=== PATIENT | female | born 1975 | race Caucasian/White ===

== ENCOUNTER → 2017-10-19 07:27 | Outpatient (CLI) | payer BC, SELFPAY ==
--- NOTE | 2017-10-19 06:58 | BI_ITS ---
MAMMOGRAPHY - BILATERAL SCREENING REASON FOR EXAM: Female, 42 years old. Routine annual screening examination. PERTINENT HISTORY: Non-contributory. Occasional right axillary discomfort. TECHNIQUE: Digital bilateral breast justin (3D mammographic acquisition) in the CC and MLO projections. 2-D mediolateral oblique (MLO) and craniocaudad (CC) views of both breasts were obtained. CAD: Full Field Digital Mammography with Computer Added Detection was performed. COMPARISON: Comparison is made with prior artery examination and October 18, 2016. FINDINGS: Breast Composition: There are scattered areas of fibroglandular density. There are no dominant masses or suspicious calcifications. Stable bilateral benign-appearing axillary lymph nodes. No other significant abnormalities are identified. There has been no significant change since the prior study. BI/SCREENING MAMM (CAD), BILAT IMPRESSION: Stable bilateral screening mammogram. Yearly follow-up mammogram recommended. (A) ASSESSMENT CATEGORY: BIRADS Category 2: Benign. A letter regarding these results will be sent to the patient by the facility within 30 days. Approximately 10% of breast cancers are not detected by mammography. A normal mammogram should not delay biopsy of a clinically suspicious abnormality. [id number] Electronically Signed: Barrett Calvert MD at 8:26 EDT Tel [phone], Service support ,
== END ==
PROVIDERS: Family Provider Family Medicine; PCP Family Medicine; Visit Provider Obstetrics & Gynecology
DX: Z12.31 Encounter for screening mammogram for malignant neoplasm of breast (principal)
CPT/HCPCS: 77063; 77067

== ENCOUNTER → 2017-10-27 18:22 | Outpatient (CLI) | payer BC, SELFPAY ==
[2017-11-09 10:56] LABS: HPV APTIMA, High Risk Negative (Negative)
== END ==
PROVIDERS: Visit Provider Obstetrics & Gynecology
DX: Z12.4 Encounter for screening for malignant neoplasm of cervix (principal)
CPT/HCPCS: 88175; G0145

== ENCOUNTER 2018-10-24 10:30 | Outpatient (RCR) | payer BC, SELFPAY ==
--- NOTE | 2018-09-27 12:26 | HP.PTEVAL ---
Patient's Visit Information MADIHA ORDOÑEZ is a 42 year old F referred to Physical Therapy by Milan Maynard MD with a diagnosis of LEFT ACL RECONSTRUCTION. Date of Evaluation: 09/27/18 Physical Therapist: Collin Dior, PT, Cert MDT, OCS - Visit Plan Frequency: 2x /Week Duration: 3 Months Plan: S/P ACL RECONSTRUCTION USING ALLOGRAFT DONE 09/07/18. PATIENT WBAT WITH DONJOY BRACE OPEN 0-120 KKEE. SEE BARNARD PROTOCAL FOR ACL RECONSTRUCTION. WEAN FROM CRUTCHES PROGRESSION PER PROTOCAL ROM,STRENGTH,PROPRIOCEPTION,NEUROCONTROL ,NMES/ESIM NEEDED - Subjective Findings: This 42 y/o female presents to physical therapy with left ACL reconstruction allograft. Patient tore ACL Jun 08 ,stepping in truck slipped left foot caused knee to twist with immediate pain. Patient seen end MD Tillman ,DR Maynard did MRI ACL ,grade 2 MCL srain. patient underwent s/p ACL repair 09/07/18 at [facility]. Patient was intially NWB LE for 2weeks then seen DR last week start PT and WBAT with crutches.Patient Donjoy knee brace unlocked with crutches .Patient has pain and edema knee with patient using at at home.Patient has limitation with all functional activies with steps one step at a time. Patient has difficulty sleeping. Patient able to take brace on at night. Denies parathesia /tingling. Patient ACL surgery impairs QOL and function. Home situation 4 steps. 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 SOCIAL: . HOBBIES: motorcycle - Pain Left Knee Pain Intensity (Out of 10): 5 Pain Intensity Range: 10 - Objective POSTURE: mild foward posture. GAIT: ambulates with crutches with WBAT knee brace open. EDEMA: 45 cm joint line. AROM: 5-85 supine knee flexion. NEURO: intact. MMT: NT QUAD/HAMS,HIP 4-/5. PROPRIOCEPTION: poor. FLEXABLITY:hams min tight. QUAD SET: GOOD. PATELLA MOBLITY : mild tight - Goals Goal 1:: Indedependant with ACL barnard protocal progression Goal Time Frame: 12-16 Weeks Goal 2:: Patient to normalize gait pattern Goal Time Frame: 12-16 Weeks Goal 3:: Patient improve AROM supine knee flexion 0-130 degrees to improve function Goal Time Frame: 12-16 Weeks Goal 4:: Patient increase strength quads/hams/hip 08/31 to improve function. Goal Time Frame: 12-16 Weeks Goal 5:: Patient to improve prorioception /neuromuscular control to good right=to left Goal Time Frame: 12-16 Weeks Goal 6:: Patient to improve LFES score to b7 20-30 ponits to improve QOL. Goal Time Frame: 12-16 Weeks - Rehabilitation Potential Physical Therapy Diagnosis: Patient undwent s/p ACL reconstruction 09/07/18 with deficits with ROM ,strength,proprioception ,gait and balance thus benifit from skilled PT. Rehabilitation Potential: Good - Anticipated Interventions Patient/Client Instruction: Educate patient on: Condition, Plan of Care For the Purpose of:: To decrease pain, To increase ROM, To improve muscle performance and motor function, To improve ability to perform ADL's, To increase tolerance to activity/condition/position, To improve performance and independence with ADL's, To improve gait and locomotor functions, To increase flexibility/ROM, To improve endurance, To improve balance, To improve safety with gait, To improve ability to perform tasks related to life management Therapeutic Exercise to Include: Strength training, Endurance training, Balance training, Flexibilty training, Gait and locomotor training, Passive ROM, Active ROM Comment: PER NEFTALY PUGA For the Purpose of:: To decrease pain, To decrease swelling/inflammation, To increase ROM, To improve muscle performance and motor function, To improve ability to perform ADL's, To increase tolerance to activity/condition/position, To improve ability of physical actions for home/community/work/leisure, To improve gait and locomotor functions, To increase flexibility/ROM, To improve endurance, To improve balance, To improve safety with gait, To improve ability to perform tasks related to life management Functional electric stimulation: Yes TENS: Yes IF ES: Yes Cryotherapy (ice pack, ice massage): Yes Vasopneumatic device: Yes For the Purpose of:: To decrease pain, To decrease swelling/inflammation, To increase ROM, To improve nutrient delivery to tissue, To increase oxygenation perfusion, To decrease soft tissue restriction, To increase flexibility/ROM Thank you for the opportunity to evaluate your patient. For Medicare and Medicare HMO plans, please review the plan of care and approve it. It will need to be FAXED BACK to us at [phone] for Medicare purposes. For Medicare only, by signing this I certify the plan of care. Please let me know if there are questions or concerns regarding this plan of care. Physician Signature: Date:
--- NOTE | 2018-12-25 07:16 | HP.PTDCNRP_ITS ---
HP - Discharge Summary (1) - Patient Information MADIHA ORDOÑEZ was seen in my office for initial evaluation on 09/27/18. The following Plan of Care was established for this patient: Initial Frequency: 2x /Week Initial Duration: 3 Months - Anticipated Interventions Patient/Client Instruction: Educate patient on: Condition, Plan of Care For the Purpose of:: To decrease pain, To increase ROM, To improve muscle per formance and motor function, To improve ability to perform ADL's, To increase tolerance to activity/condition/position, To improve performance and independence with ADL's, To improve gait and locomotor functions, To increase flexibility/ROM, To improve endurance, To improve balance, To improve safety with gait, To improve ability to perform tasks related to life management Therapeutic Exercise to Include: Strength training, Endurance training, Balance training, Flexibilty training, Gait and locomotor training, Passive ROM, Active ROM For the Purpose of:: To decrease pain, To decrease swelling/inflammation, To increase ROM, To improve muscle performance and motor function, To improve ability to perform ADL's, To increase tolerance to activity/condition/position, To improve ability of physical actions for home/community/work/leisure, To improve gait and locomotor functions, To increase flexibility/ROM, To improve endurance, To improve balance, To improve safety with gait, To improve ability to perform tasks related to life management Functional electric stimulation: Yes TENS: Yes IF ES: Yes Cryotherapy (ice pack, ice massage): Yes Vasopneumatic device: Yes For the Purpose of:: To decrease pain, To decrease swelling/inflammation, To increase ROM, To improve nutrient delivery to tissue, To increase oxygenation perfusion, To decrease soft tissue restriction, To increase flexibility/ROM This patient was last seen in our office 10/24/18. Pertinent comments regarding their Physical therapy will appear below: Patient seen for PT for ACL with progression of protocal . Patient doing well with ROM and strength. Patient decided to continue PT and [facility],thus is d/c fom our dept. Thanks for referral. At this point I will be discontinuing this patient from physical therapy. I would be happy to see this patient again in the future if found appropriate by the physician. Thank you! Collin Dior, PT, Cert MDT, OCS
== END 2018-10-24 19:00 | disposition home or self-care (01) ==
LOC: PT 10:30
PROVIDERS: Family Provider Family Medicine; PCP Family Medicine; Referring Provider Orthopaedic Surgery; Visit Provider Orthopaedic Surgery
DX: S83.512D Sprain of anterior cruciate ligament of left knee, subsequent encounter (principal)
CPT/HCPCS: 97110; 97161

== ENCOUNTER → 2018-11-01 | Outpatient (CLI) | payer BC, SELFPAY ==
[2017-10-27 14:27] VITALS: BMI 41.8
--- NOTE | 2018-11-01 08:06 | BI_ITS ---
MAMMOGRAPHY - BILATERAL SCREENING REASON FOR EXAM: Female, 43 years old. Routine annual screening examination. PERTINENT HISTORY: Non-contributory. TECHNIQUE: Digital bilateral breast mary (3D mammographic acquisition) in the CC and MLO projections. 2-D mediolateral oblique (MLO) and craniocaudad (CC) views of both breasts were obtained. CAD: Full Field Digital Mammography with Computer Added Detection was performed. COMPARISON: Comparison is made with prior study dated October 19, 2017 and October 18, 2016. FINDINGS: Breast Composition: There are scattered areas of fibroglandular density. There are no dominant masses or suspicious calcifications. Stable benign-appearing bilateral axillary lymph nodes. No other significant abnormalities are identified. There has been no significant change since the prior study. BI/SCREEN MAMM (CAD) W/MARY BILAT IMPRESSION: Stable bilateral screening mammogram. Yearly follow-up mammogram recommended. (A) ASSESSMENT CATEGORY: BIRADS Category 1: Negative. A letter regarding these results will be sent to the patient by the facility within 30 days. Approximately 10% of breast cancers are not detected by mammography. A normal mammogram should not delay biopsy of a clinically suspicious abnormality. [id number] Electronically Signed: Barrett Calvert, at 10:10 EDT , Service support ,
== END | disposition home or self-care (01) ==
LOC: OPBI 08:04
PROVIDERS: Family Provider Family Medicine; PCP Family Medicine; Referring Provider Obstetrics & Gynecology; Visit Provider Obstetrics & Gynecology
DX: Z12.31 Encounter for screening mammogram for malignant neoplasm of breast (principal)
CPT/HCPCS: 77063; 77067

== ENCOUNTER 2018-12-05 13:31 | Outpatient (RCR) | payer BC, SELFPAY ==
[2018-11-20 08:11] VITALS: BMI 41.8
== END 2018-12-26 23:59 ==
LOC: NS 13:31
PROVIDERS: Family Provider Family Medicine; PCP Family Medicine; Visit Provider Nurse Practitioner Women's Health
DX: E66.01 Morbid (severe) obesity due to excess calories (principal); Z68.41 Body mass index [BMI] 40.0-44.9, adult; Z71.3 Dietary counseling and surveillance
CPT/HCPCS: 97802

== ENCOUNTER → 2019-01-22 | Outpatient (CLI) | payer BC, SELFPAY ==
[2019-01-22 15:58] VITALS: BMI 41.8
== END | disposition home or self-care (01) ==
PROVIDERS: Family Provider Family Medicine; PCP Family Medicine; Referring Provider Nurse Practitioner Women's Health; Visit Provider Nurse Practitioner Women's Health
DX: R30.0 Dysuria (principal)
CPT/HCPCS: 87086; 87088

== ENCOUNTER 2019-01-24 09:09 | Day surgery (SDC) | payer BC, SELFPAY ==
[2018-11-20 08:11] VITALS: BMI 41.8
[2019-01-22 15:58] VITALS: BMI 41.8
--- NOTE | 2019-01-23 22:13 | PCM.HPOB.BLA ---
- Problem List (1) Body mass index (BMI) of 40.1 to 44.9 in adult Status: Acute Comment: nutrition consult, low carb diet, SW 236, adipex (2) Dysmenorrhea Status: Acute (3) Allergy-induced asthma Status: Chronic (4) Chronic pelvic pain in female Status: Chronic Comment: s/p ablation, not hormonal candidate, discussed and recommend TVH BS (5) Hypertension Status: Chronic Qualifiers: History and Physical Date of Admission: 01/24/19 Intake Vital Signs 01/14/19 Body Mass Index (BMI) 41.8 01/14/19 Height 5 ft 4 in 01/14/19 Weight: 221 lb 01/14/19 Body Mass Index (BMI) 37.9 01/14/19 Blood Pressure 136/86 H Intake Visit Reasons: pre op ERAS/WEIGHT CHECK FOR ADIPEX Chief Complaint: pre op, adipex check Electrical Installer Required: No Is patient in pain?: No Allergies Penicillins Allergy (Mild, Verified 01/14/19 10:42) unknown Medications albuterol sulfate HFA 90 mcg/actuation aerosol inhaler 2 puff INHALATION Q6H PRN 10/27/17 [History Confirmed 01/14/19] hydrochlorothiazide 12.5 mg tablet 12.5 mg PO QDAY 10/27/17 [History Confirmed 01/14/19] phentermine 37.5 mg tablet 37.5 mg PO QDAY #30 tab 01/14/19 [Rx Confirmed 01/14/19] Is last menstrual period known: No Post menopausal: No Patient : No : No [facility] Medical History Hypertension (Chronic) Allergy-induced asthma (Chronic) Abnormal uterine bleeding (Acute) Hip tendonitis (Acute) Surgical History History of endometrial ablation (Acute) S/P ACL repair (Acute) History of bunionectomy of both great toes (Resolved) S/P tubal ligation (Resolved) Family History Father Diabetes CVA (cerebral vascular accident) Hypertension Mother Lung cancer Grandfather Leukemia Grandmother Diabetes Social History (Updated 01/14/19 @ 11:17 by Bea Miramontes MD) Smoking Status: Former smoker alcohol intake: current substance use type: does not use caffeine: Yes frequency: 1-2 times per week seatbelt use: always do you feel safe at home: Yes additional social history: - [employer] for [employer] Patient is retired from [employer] HPI pre op ERAS/WEIGHT CHECK FOR ADIPEX: Details: MADIHA ORDOÑEZ is a 43 year old who presents for fu of weight loss and preop visit. she has had dysmenorrhea and pelvic pain. Female Reproductive History Menopausal Symptoms: No night sweats Pregancy History 1 Elective abortions Hx Para 1 Spontaneous abortions Hx # Term Pregnancies Ectopic pregnancies Hx # Pregnancies Multiple births # of living children Past Pregnancies Del. Date Name GA/Weeks Outcome Route Bth Weight Infant Gen Labor Lgth Anesthesia Del Locatn Provider FOB Unknown ROS Const Constitutional: Denies fatigue, night sweats, weight gain or weight loss ENT ENT: Reports system reviewed and no additional complaints, except as docu Cardio Card: Denies chest pain Resp Resp: Denies cough or dyspnea GI GI: Reports as per HPI; denies abdominal pain, constipation, nausea or vomiting : Denies nipple discharge, urinary frequency, urinary incontinence, urinary hesitancy, urinary urgency, vaginal discharge, vaginal dryness, vaginal odor or vaginal itching Musc Musc: Denies joint pain, back pain or muscle weakness Skin Skin/Breast: Denies hair loss, change in hair, dry skin, breast lump, breast pain, breast skin changes or nipple discharge Neuro Neuro: Reports system reviewed and no additional complaints, except as docu Psych Psych: Reports system reviewed and no additional complaints, except as docu Endo Endo: Denies cold intolerance, excessive sweating, heat intolerance or increased thirst Juanpablo/Lymph Hematologic/Lymphatic: Denies easy bleeding, Denies easy bruising, Denies enlarged lymph nodes Exam Const General: cooperative, healthy appearing, comfortable, no acute distress, well developed Orientation: alert HENSC Head: normal to inspection, normocephalic Ears: hearing grossly normal bilaterally, external ears normal Nose: external nose normal, nares normal Face and sinus: normal facial exam Neck Neck: normal visual inspection, no lymphadenopathy Thyroid: thyroid normal Chest Chest palpation & inspection: normal inspection of the chest Resp Effort & Inspection: normal respiratory effort Cardio Rate: regular rate GI Inspection: normal to inspection, non-distended Palpation: soft, no hepatosplenomegaly Musc Other: gross motor intact no deficits, full bilateral strength Skin General: no rashes or lesions noted Neuro General: alert, awake, moves all extremities, no focal motor deficits Motor: muscle tone normal throughout Extrem General: normal to inspection, no pedal edema Psych Appearance: grossly normal Mental Status: mental status grossly normal Affect: normal affect Speech and Movement: speech and movement normal Assessment & Plan Problems 1. Dysmenorrhea N94.6 2. Chronic pelvic pain in female R10.2; G89.29 s/p ablation, not hormonal candidate, discussed and recommend TVH BS 3. Body mass index (BMI) of 40.1 to 44.9 in adult Z68.41 nutrition consult, low carb diet, SW 236, adipex Plan discussed surgical risks including risks of anesthesia, infection, bleeding, injury to bowel, bladder or blood vessels, and patient wishes to proceed with surgery. Medications Refilled: phentermine (Adipex-P) 37.5 mg PO QDAY 30 tabs 0RF Coding Level of Care Code No Charge Diagnoses Dysmenorrhea N94.6 Chronic pelvic pain in female R10.2; G89.29 Body mass index (BMI) of 40.1 to 44.9 in adult Z68.41
[2019-01-24] VITALS (11 sets, daily range): BP systolic 106–163; BP diastolic 65–87; PULSE 82–103; RESP 16–18; TEMP 36.3–36.9; O2SAT 94–100; BMI 31.0; BMI 36.8
--- NOTE | 2019-01-24 | HYST_PTH ---
PATIENT: MADIHA ORDOÑEZ LOC: [facility] [place] U#:[id number] AGE/SX: 43/F ROOM: RE01/24/[address]: Dr. Bea Miramontes MD : 1975 BED: DIS: 01/25/2019 SPEC #: [id number] RECD: 01/24/19 14:09 STATUS: JUVENCIO JOVANA #: [id number] DENIA: 01/24/19 00:[address]: Bea Miramontes DEPT: SURGICAL PATHOLOGY RECD BY: Tyrel Atkins ENTERED: 01/24/19 14:09 SP TYPE: HYSTERECT OTHR DR: Dr. Trevor Govea III, MD Tissues: Uterus, NOS Procedures: Surgery Specimen Level V HEADER OPERATION: ERAS, hysterectomy, vaginal PRE-OP DIAGNOSIS: Dysmenorrhea, chronic pelvic TISSUE SUBMITTED: Uterus MICROSCOPIC DIAGNOSIS Uterus, hysterectomy: Cervix - mild chronic inflammation and focal squamous metaplasia. Endometrium - secretory endometrium. Myometrium - adenomyosis and leiomyoma. AM:daniela 01/25/19 MICROSCOPIC DESCRIPTION Slides are reviewed. GROSS DESCRIPTION Received in fixative is one container labeled with the patient's name and designated uterus. The specimen consists of a hysterectomy specimen consisting of uterus. The uterus with cervix weighs 80 gm and measures 10 x 5 x 4.5 cm. The serosal surface is greenwood glistening. A small subserosal nodule is noted. The ectocervical mucosa is unremarkable. The external os is oval in contour. The endocervical canal measures 3.5 cm in length and the endocervical mucosa is greenwood glistening and unremarkable. The endometrial cavity is slightly irregular and with focal area of fibrosis and contains chocolate brown hemorrhagic fluid and measures 4 cm in length and up to 1 cm in width. The uterine wall reveals 2 small cysts filled with chocolate brown material. The uterine wall measures up to 2.5 cm in thickness. Serial sections reveal a small subserosal nodule measuring 0.4 cm in greatest dimension. Vessel Manager sections are submitted in 7 cassettes as follows: 1 - anterior cervix, 2 - posterior cervix, 3 & 4 - anterior uterine wall, 5 & 6 - posterior uterine wall, 7 - more sections of posterior uterine wall and subserosal nodular mass. DIEGO:daniela 01/24/19 TC:1 CPT: 41156
[2019-01-24 09:32] LABS: Hematocrit 40.7 % (37-47); Hemoglobin 13.6 g/dL (12.0-15.0); Mean Corp Hgb Conc 33.4 g/dL (32-36); Mean Corpuscular Hgb 29.6 pg (27.0-32.0); Mean Corpuscular Volume 88.5 fL (81-99); Mean Platelet Vol. 10.7 fl (6.2-12.0); Platelet Count 197 K/mm3 (150-450); RBC Distribution Width CV 12.8 % (11.6-14.6); RBC Distribution Width SD 41.8 fl (35.1-43.9); White Blood Count 6.8 K/mm3 (4.4-11.0)
[2019-01-24 09:38] LABS: Internal QC Validated? YES +Cl - CLEAR BKGD; Pregnancy, Urine Negative Negative
[2019-01-24] MEDS: Scopolamine 1mg/72hr Patch 1 PATCH TRANSDERM. (09:44)
[2019-01-24] MEDS: Acetaminophen 500 MG Tablet 1000 MG PO ×3 (09:44→23:38)
[2019-01-24] MEDS: Celecoxib 200 MG Capsule 400 MG PO (09:46)
[2019-01-24] MEDS: Phenazopyridine 95 MG Tablet 190 MG PO (09:47)
[2019-01-24] MEDS: Lactated Ringers 1,000 ML 40 ML IV (09:48)
[2019-01-24] MEDS: dexAMETHasone 10 MG/ML Vial 8 MG IV (09:48)
[2019-01-24] MEDS: Gabapentin 600 MG Tablet PO (09:48)
[2019-01-24] MEDS: Enoxaparin 40 MG/0.4 ML Syringe SC (09:49)
[2019-01-24] MEDS: Magnesium Sulfate 4gm/100mL 4 GM/100 ML IV.SOLN. IV (09:49)
[2019-01-24 10:21] LABS: Bedside Glucose 157 mg/dL (70-110)
[2019-01-24] MEDS: Cefazolin 2 GM in 0.9% Normal Saline 100 ML IV (11:07)
[2019-01-24] MEDS: Lactated Ringers 1,000 ML 70 ML IV ×2 (12:30→23:38)
[2019-01-24] MEDS: Vasopressin 20 UNITS/ML Vial (12:40)
--- NOTE | 2019-01-24 12:53 | PCM.OPRPT ---
Problem List (1) Body mass index (BMI) of 40.1 to 44.9 in adult Status: Acute Comment: nutrition consult, low carb diet, SW 236, adipex (2) Dysmenorrhea Status: Acute (3) Allergy-induced asthma Status: Chronic (4) Chronic pelvic pain in female Status: Chronic Comment: s/p ablation, not hormonal candidate, discussed and recommend TVH BS (5) Hypertension Status: Chronic Qualifiers: Report of Operation Date of Procedure: 01/24/19 Pre-Operative Diagnosis: aub Post-Operative Diagnosis: same Surgery/Procedure Performed:: tvh Description of Surgical Findings:: Normal uterus tubes right simple ovarian cyst forming roll operator heavy duty: Chary Salazar Type of Anesthesia:: General Special Medications: ancef Specimen's removed: Uterus Drains: malik Estimated Blood Loss (mL): 100 Fluids Replaced: Crystalloid Description of Procedure: Patient was taken to the operating room and was placed under general anesthesia was prepped and draped in normal sterile fashion in the dorsal lithotomy position. Preoperative antibiotics and SCDs and Malik catheter was placed inside the bladder. Weighted speculum was placed in the vagina and the anterior and posterior lip of the cervix was grasped with 2 Tylor clamps and circumferentially injected with dilute vasopressin. A circumferential incision was made with a scalpel and the posterior cul-de-sac was entered into sharply and a longneck speculum was placed. The anterior cul-de-sac was also dissected down and entered into sharply and the uterosacral ligaments were clamped cut and suture ligated bilaterally followed by the cardinal ligaments which were Clamped cut and suture ligated bilaterally with 0 Monocryl. The uterus serially descended and progressive bites were taken bilaterally up to the level of the utero-ovarian ligament bilaterally which was clamped transected and double ligated with 0 Monocryl suture and 0 Vicryl free tie. Bilateral fallopian tubes and ovaries were well visualized and noted be within normal limits and the bilateral fallopian tubes were transected across the base with a Kim clamp and removed and sutured with 0 Vicryl suture. Excellent hemostasis was noted. Posterior peritoneum was reapproximated with 2-0 Vicryl. The vagina was closed with [id number] 0 Vicryl pop offs including the posterior and anterior peritoneum in the reapproximation. Excellent hemostasis was noted. All instruments removed from the vagina clear urine was noted at the end of the procedure and patient was awoken and taken recovery in stable condition. Grafts/Implants Used: none - Complications none
[2019-01-24] MEDS: Ondansetron 4 MG/2 ML Vial IV (13:15)
[2019-01-24] MEDS: Ketorolac 30 MG/ML Syringe IV (13:47)
[2019-01-24] MEDS: oxyCODONE 5 MG Tablet PO ×2 (16:38→21:56)
[2019-01-24 17:53] LABS: Hemoglobin 13.6 g/dL (12.0-15.0); Mean Corpuscular Hgb 29.9 pg (27.0-32.0); Mean Corpuscular Volume 87.9 fL (81-99); Mean Platelet Vol. 10.5 fl (6.2-12.0); Platelet Count 208 K/mm3 (150-450); RBC Distribution Width CV 12.6 % (11.6-14.6); RBC Distribution Width SD 40.7 fl (35.1-43.9); Red Blood Count 4.55 M/mm3 (4.2-5.4); White Blood Count 16.9 K/mm3 (4.4-11.0)
[2019-01-24] MEDS: Ketorolac 15 MG/ML Vial 30 MG IV (20:04)
[2019-01-24] MEDS: Docusate Sodium 100 MG Capsule PO (20:38)
[2019-01-25 01:06] VITALS: BP 124/65; PULSE 101; RESP 18; TEMP 37.1; O2SAT 96
[2019-01-25] MEDS: Ketorolac 15 MG/ML Vial 30 MG IV ×2 (01:15→08:09)
[2019-01-25 05:41] VITALS: BP 118/65; PULSE 89; RESP 18; TEMP 37.1; O2SAT 96
[2019-01-25] MEDS: Acetaminophen 500 MG Tablet 1000 MG PO (05:44)
[2019-01-25] MEDS: oxyCODONE 5 MG Tablet PO ×2 (05:45→10:46)
--- NOTE | 2019-01-25 07:27 | PCM.DC.VHY ---
Discharge Diet: No Restrictions Discharge Activity: Return to Normal Activity, May Not Drive, May Shower May resume sexual activity in: 6-8 weeks Call your doctor if your incision/area has: Continuous Slow Oozing, Sudden Increased Bleeding, Increased Pain/ Swelling, Increased Redness, Foul Smelling Discharge Call your doctor if you observe: Fever of 101 or Higher, Inability to urinate, Inability to have a bowel movement, Using more than one pad per hour Allergies/Adverse Reactions: Allergies Penicillins Allergy (Mild, Verified 01/24/19 09:24) unknown Medications to take at Discharge albuterol sulfate HFA 90 mcg/actuation aerosol inhaler 2 puff INHALATION Q6H PRN 10/27/17 hydrochlorothiazide 12.5 mg tablet 12.5 mg PO QDAY 10/27/17 phentermine 37.5 mg tablet 37.5 mg PO QDAY #30 tab 01/14/19 Meloxicam [Mobic] 15 mg PO DAILY 01/17/19 Gabapentin [Neurontin] 300 mg PO DAILY 01/18/19 Nabumetone [Relafen] 500 mg PO BID 01/18/19 Naproxen [Naprosyn] 250 - 500 mg PO Q8H PRN PRN #30 tab 01/25/19 Oxycodone HCl/Acetaminophen [Percocet 5-325] 1 - 2 tablet PO Q4H PRN PRN 7 Days #15 tablet 01/25/19 The following prescriptions were given: Naproxen [Naprosyn] 250 - 500 mg PO Q8H PRN PRN #30 tab PRN Reason: MILD PAIN Transmission Status: Pending to [facility] Oxycodone HCl/Acetaminophen [Percocet 5-325] 1 - 2 tablet PO Q4H PRN PRN 7 Days #15 tablet PRN Reason: Pain Transmission Status: Sent to [facility] Primary Care Physician: Trevor Govea III, MD [Primary Care Provider] - Test Results: Test results from this visit will be discussed in further detail at your follow-up appointment, if applicable. Please Follow Up With: Bea Miramontes MD - [phone]
[2019-01-25 07:28] VITALS: O2SAT 97
[2019-01-25 07:52] VITALS: BP 123/77; PULSE 88; RESP 18; TEMP 36.5; O2SAT 100
[2019-01-25] MEDS: 0.9% NaCl Peripheral Flush Adult/Peds IV (08:10)
[2019-01-25] MEDS: Docusate Sodium 100 MG Capsule PO (08:16)
--- NOTE | 2019-01-25 09:50 | PCM.PN.OB ---
Subjective: Doing well and pain controlled. Has been up to bedside. Tolerating po diet. No CP, SOB - Physical Exam General: Alert, Oriented x3 Abdomen: Soft, Non-Distended, - - minimal tenderness. Vital Signs Temp Pulse Resp BP Pulse Ox 97.7 F L 88 18 123/77 H 100 01/25/19 07:52 01/25/19 07:52 01/25/19 07:52 01/25/19 07:52 01/25/19 07:52 Oxygen Flow Rate (L/min) 6 Oxygen Delivery Method Room Air Weight: 214 lb 12.465 oz Body Mass Index (BMI) 36.8 Intake and Output for Last 24 Hours 01/23/19 01/24/19 01/25/19 23:59 23:59 23:59 Intake Total 3120.15 / 4620.15 1740 / 1740 Output Total 1250 / 4350 4100 / 4100 Balance 1870.15 / 270.15 -2360 / -2360 Laboratory Tests Past 24 Hrs 01/24/19 01/24/19 09:20 17:25 WBC 16.9 H RBC 4.55 Hgb 13.6 Hct 40.0 MCV 87.9 MCH 29.9 MCHC 34.0 RDW Std Deviation 40.7 RDW Coeff of Daya 12.6 Plt Count 208 MPV 10.5 Blood Type A NEGATIVE Antibody Screen NEGATIVE POC Glucose 01/24/19 09:30 POC Glucose 157 H Medical Necessity - Tobacco Use Smoking Status: Former smoker Assessment/Plan All Active Problems (Last Reviewed 01/14/19 @ 10:43 by Janie Sun) Dysmenorrhea (Acute) Body mass index (BMI) of 40.1 to 44.9 in adult (Acute) POD #1 TVH: routine care DC malik cath and IV Home when stable and voids.
[2019-01-25] MEDS: Enoxaparin 40 MG/0.4 ML Syringe SC (10:42)
[2019-01-25 10:57] VITALS: BP 123/77; PULSE 88; RESP 18; TEMP 36.5; O2SAT 100
== END 2019-01-25 10:58 | disposition home or self-care (01) ==
LOC: SDC 09:10 → AC 09:11 → MS3 01-25 08:48
PROVIDERS: Family Provider Family Medicine; PCP Family Medicine; Referring Provider Obstetrics & Gynecology; Visit Provider Obstetrics & Gynecology
PROC: (CPT 58260; principal; 2019-01-24 09:05)
DX: N72 Inflammatory disease of cervix uteri (principal); N80.0 Endometriosis of uterus; D25.9 Leiomyoma of uterus, unspecified; G89.29 Other chronic pain; R10.2 Pelvic and perineal pain; I10 Essential (primary) hypertension; J45.909 Unspecified asthma, uncomplicated; Z79.51 Long term (current) use of inhaled steroids; Z79.899 Other long term (current) drug therapy; Z87.891 Personal history of nicotine dependence
CPT/HCPCS: 58260; 36415; 81025; 82962; 85027; 86850; 86900; 86901; 88307; J7120; A4216; J2405

== ENCOUNTER → 2019-01-30 | Outpatient (CLI) | payer BC, SELFPAY ==
[2019-01-24 15:01] VITALS: BMI 36.8
[2019-01-30 09:35] LABS: Absolute Lymphocyte Count 1.59 X10^3/uL (0.83-4.51); Absolute Neutrophil Count 6.3 X10^3/uL (2.0-7.7); Basophil# 0.03 X10^3/uL; Basophil% 0.3 % (0-1); Eosinophil# 0.27 X10^3/uL; Eosinophils% 3.1 % (0-5); Hemoglobin 14.2 g/dL (12.0-15.0); Lymphocyte # 1.59 X10^3/ul (4.0); Lymphocyte % 18.3 % (19-41); Mean Corpuscular Hgb 29.8 pg (27.0-32.0); Mean Corpuscular Volume 90.3 fL (81-99); Mean Platelet Vol. 10.8 fl (6.2-12.0); Monocyte# 0.49 X10^3/uL; Monocyte% 5.6 % (0-10); NRBC Flagged by Analyzer 0 % (0-5); Neutrophil # 6.28 X10^3/uL (2.7-7.7); Neutrophil % 72.4 % (47-70); Platelet Count 259 K/mm3 (150-450); RBC Distribution Width CV 12.6 % (11.6-14.6); RBC Distribution Width SD 41.7 fl (35.1-43.9); Red Blood Count 4.76 M/mm3 (4.2-5.4); White Blood Count 8.7 K/mm3 (4.4-11.0)
== END | disposition home or self-care (01) ==
PROVIDERS: Family Provider Family Medicine; PCP Family Medicine; Referring Provider Obstetrics & Gynecology; Visit Provider Obstetrics & Gynecology
DX: G89.29 Other chronic pain (principal); R10.2 Pelvic and perineal pain
CPT/HCPCS: 36415; 85025

== ENCOUNTER → 2019-02-01 | Outpatient (CLI) | payer BC, SELFPAY ==
[2019-01-24 15:01] VITALS: BMI 36.8
--- NOTE | 2019-02-01 07:59 | US_ITS ---
STUDY: ULTRASOUND OF THE FEMALE PELVIS - COMPLETE REASON FOR EXAM: Female, 43 years old. Pelvic pain. LMP: Patient is post hysterectomy and postmenopausal. TECHNIQUE: Transabdominal TECHNICAL QUALITY: Adequate. COMPARISON: None. FINDINGS: The patient is status post hysterectomy. The right ovary is visualized. The right ovary measures 5.1 cm x 2 cm x 2.4 cm. There is no right ovarian cyst or ovarian mass. There is no visualized right adnexal mass or complex lesion. There is normal arterial and normal venous vascularity. The left ovary is visualized. The left ovary measures 4 cm x 3.9 cm x 1.6 cm. There is no left ovarian cyst or ovarian mass. There is no visualized left adnexal mass or complex lesion. There is normal arterial and normal venous vascularity. There is no fluid in the cul-de-sac. The pre void volume of the bladder was 646 ml. Polycystic ovary disease: No. US/Pelvic (Non ) IMPRESSION: Status post hysterectomy. No acute abnormality is seen. Electronically Signed: Barrett Calvert, at 10:01 EDT , Service support ,
== END | disposition home or self-care (01) ==
LOC: OPUS 07:58
PROVIDERS: Family Provider Family Medicine; PCP Family Medicine; Referring Provider Obstetrics & Gynecology; Visit Provider Obstetrics & Gynecology
DX: G89.29 Other chronic pain (principal); R10.2 Pelvic and perineal pain
CPT/HCPCS: 76856; 93976

== ENCOUNTER → 2019-07-23 07:46 | Outpatient (CLI) | payer BC, SELFPAY ==
[2019-03-08 10:03] VITALS: BMI 36.8
--- NOTE | 2019-07-23 07:51 | BI_ITS ---
MAMMOGRAPHY - BILATERAL SCREENING REASON FOR EXAM: Female, 43 years old. Routine annual screening examination. PERTINENT HISTORY: Noncontributory TECHNIQUE: Digital bilateral breast mary (3D mammographic acquisition) in the CC and MLO projections. 2-D mediolateral oblique (MLO) and craniocaudad (CC) views of both breasts were obtained. CAD: Full Field Digital Mammography with Computer Added Detection was performed. COMPARISON: Previous mammogram obtained on 11/01/2018 FINDINGS: Breast Composition: Scattered internal breast structure seen There are no dominant masses or suspicious calcifications. No other significant abnormalities are identified. Breast thoracentesis shows no additional abnormalities. BI/SCREEN MAMM (CAD) W/MARY BILAT IMPRESSION: Stable bilateral screening mammogram. Yearly follow-up mammogram recommended. ASSESSMENT CATEGORY: FINAL ASSESSMENT: BI-RAD CATEGORY I (NEGATIVE) YEARLY MAMMOGRAPHY RECOMMENDED Approximately 10% of breast cancers are not detected by mammography. A normal mammogram should not delay biopsy of a clinically suspicious abnormality. [id number] Electronically Signed: Myles Padron, at 12:01 EST Tel , Service support ,
== END ==
PROVIDERS: PCP Family Medicine; Referring Provider Obstetrics & Gynecology; Visit Provider Obstetrics & Gynecology
DX: Z12.31 Encounter for screening mammogram for malignant neoplasm of breast (principal)
CPT/HCPCS: 77063; 77067

== ENCOUNTER 2020-01-23 21:29 | Emergency (ER) | payer BC, SELFPAY ==
[2019-03-08 10:03] VITALS: BMI 36.8
[2020-01-23 21:29] VITALS: BP 141/90; PULSE 110; RESP 18; TEMP 36.4; O2SAT 98; BMI 34.3
--- NOTE | 2020-01-23 21:44 | ED.DCSUM_ITS ---
- ER Visit Summary Date of Service: 01/23/20 Chief Complaint: Fall History of Present Illness: The patient is a [address] Trevor Govea iii and Dr. Maynard. She reports that approximately 430 this afternoon she was walking around a curb when she tripped and fell onto [place] with her left knee. States that she did twist her knee awkwardly. She complains of a sharp, burning pain Zeta 10 at worst and 7-10 currently. Is worsened by nothing. She actually reports it is relieved by walking. She is not taking anything for pain. She reports she has paresthesias in the lateral portion of her left foot that come and go. She does have a history of a left ACL replacement last year by Dr. Maynard. Patient denies any other injuries. No blow to the head or loss of consciousness. No neck or back pain. Physical Examination: Vitals: Stable. Afebrile. Neck: No vertebral tenderness. Full ROM without difficulty. Cleared by NEXUS criteria. Back: No vertebral tenderness. General: A&O x 3. NAD. Cardiovascular exam: Regular rate and rhythm, no murmur, rub or gallop. Respiratory exam: Chest nontender. No crepitus. Clear to auscultation bilaterally. No wheezes or stridor. Abdominal exam: Soft, nontender, nondistended, normal bowel sounds. No pain in RUQ or LUQ specifically. No peritoneal signs. Extremity: Abrasion over her left knee. She has minimal tenderness palpation over her knee. She does have moderate tenderness palpation over the proximal tibia. She is neurovascular intact distal this with normal sensation light touch both medial and laterally. She is able to flex and extend her ankle against resistance. She is a 2+ dorsalis pedis pulse. Test Results: Clinical Impression(s) from Imaging Studies Tibia/Fibula X-Ray 01/23/20 21:50 IMPRESSION: Negative for acute fracture or dislocation. Electronically Signed: Jing Carvajal MD at 22:03 EDT , Service support , Emergency Department Course and Treatment: Patient was given a dose of fentanyl IM and Zofran p.o. She is resting more comfortably. Patient refused crutches. Treatment Plan: Patient will be discharged with symptomatic care. Ice the area. Use Tylenol and/or ibuprofen for pain. Follow-up Dr. Maynard in 1 week if not improving. Return to the emergency department for any worsening symptoms. Disposition: To home in improved and stable condition. Impression: 1. Fall. 2. Left leg pain, acute. This note was generated with Sky[employer]rase dictation software. It may contain incorrect words, spelling, and punctuation that were not noted in review of the chart prior to signing ED Disposition - Plan for ED Patient: Instructions: ED Knee Pain [facility] Referrals: Milan Maynard MD [STAFF PHYSICIAN] - 1 Week if not improving
--- NOTE | 2020-01-23 21:50 | RAD_ITS ---
STUDY: X-RAY - LEFT TIBIA AND FIBULA REASON FOR EXAM: Female, 44 years old. FALL, LEFT LEG PAIN ESPECIALLY AROUND BY KNEE TECHNIQUE: 2 view(s) of the tibia and fibula were obtained. COMPARISON: None. FINDINGS: Normal visualized tibia. Normal visualized fibula. Negative for fracture. The knee is located. Degenerative narrowing of the medial and lateral compartment. Postoperative changes. RAD/Tibia & Fibula 2 Views IMPRESSION: Negative for acute fracture or dislocation. Electronically Signed: Jing Carvajal MD at 22:03 EDT , Service support ,
[2020-01-23] MEDS: Ondansetron ODT 4 MG Tablet PO (21:55)
[2020-01-23] MEDS: fentaNYL 100 MCG/2 ML Ampul 50 MCG IM (21:56)
[2020-01-23 22:21] VITALS: BP 120/63; PULSE 94; RESP 16; O2SAT 98
== END 2020-01-23 22:21 | disposition home or self-care (01) ==
LOC: ED 22:01
PROVIDERS: Emergency Provider Emergency Medicine; PCP Family Medicine
DX: M79.605 Pain in left leg (principal); W01.0XXA Fall on same level from slipping, tripping and stumbling without subsequent striking against object, initial encounter
CPT/HCPCS: 73590; 99283

== ENCOUNTER 2020-04-28 17:28 | Inpatient (IN) | payer BC, SELFPAY ==
[2020-04-28 17:29] VITALS: BP 151/99; PULSE 115; RESP 18; TEMP 35.5; O2SAT 100; BMI 39.3
--- NOTE | 2020-04-28 17:37 | ED.DCSUM_ITS ---
History of Present Illness Chief Complaint: Abn Labs Informant: Patient Narrative: 44-year-old female presenting with abnormal lab work. She states her BUN and creatinine are elevated as well as her hemoglobin is low. Patient states she has a history of knee surgery on 03/31 for ACL repair. She had a fever nausea and decreased appetite before her surgery but had 2 - Covid tests after antibiotics were given to her her fever resolved. She still has nausea when she eats and states that she gets waves of pain in her epigastrium. Patient also states that she takes HCTZ, lisinopril, Voltaren and had recently begun and a prednisone taper. She did state that her surgeon thought she might have an infected knee although her all of her knee aspirate came back with no infection and her fever resolved. Her knee is nontender. Patient states she is never had kidney problems before but states that she was tested yesterday and today and her numbers have gone up even from yesterday. Her hemoglobin is down. - Past Medical History (1) Hypertension Status: Chronic Past Medical History - Allergies and Home Meds Allergies/Adverse Reactions: Allergies Penicillins Allergy (Mild, Verified 04/28/20 22:04) Hives? Pt has not had it in many years Prior records reviewed: Yes Past Medical History: - - Hypertension Smoking Status: Former smoker - Family History Maternal Family History: Family History (Last Reviewed 04/28/20 @ 21:[address] Jose Alejandro Hardin MD) Father Diabetes CVA (cerebral vascular accident) Hypertension Mother Lung cancer Grandfather Leukemia Grandmother Diabetes Review of Systems General: Reports: Malaise. Denies: Chills, Fever, Sweats Eyes: Denies: Visual changes - bilaterally, Diplopia ENT: Denies: Rhinorrhea, Sore throat Cardiovascular: Denies: Chest pain, Palpitations Respiratory: Denies: Dyspnea, Cough, Dyspnea on exertion Gastrointestinal: Reports: Abdominal pain, Nausea. Denies: Melena, Hematochezia Genitourinary: Reports: - - Decreased urine output. Denies: Dysuria, Hematuria Musculoskeletal: Reports: Myalgias, Arthralgias Skin: Denies: Rash, Abscess Neurological: Denies: Headache, Parasthesia, Numbness Physical Exam Vital Signs/Narrative: Vital Signs Temp Pulse Resp BP Pulse Ox 04/28/20 17:29 96 F L 115 H 18 151/99 H 100 Inital Vital Signs reviewed: Yes General: Well nourished, No Acute Distress Head: Normocephalic, Atraumatic Eyes: Perrl, EOMI. Negative for: Pale conjunctiva ENT: Moist mucous membranes, No rhinorrhea Cardiovascular: Regular rate, Regular rhythm Respiratory: No distress, CTA bilaterally, Chest nontender Abdomen: Soft - Tenderness to palpation in epigastrium and supraumbilical area Extremities: Nontender, No edema Skin: Normal color, No rash Neurological: Alert, Oriented x3 Psychological: Normal affect, Normal Mood Diagnostic/Tx/Re-eval Clinical Impression(s) from Imaging Studies Abdomen/Pelvis CT 04/28/20 18:17 IMPRESSION: No definite acute or significant abnormality seen. Electronically Signed: Lonnie Chavez MD at 18:59 EST , Service support , Laboratory Data 04/28/20 04/28/20 04/28/20 18:20 18:22 18:22 WBC 11.2 H RBC 3.27 L Hgb 9.6 L Hct 28.9 L MCV 88.4 MCH 29.4 MCHC 33.2 RDW Std Deviation 40.2 RDW Coeff of Daya 12.5 Plt Count 363 MPV 9.3 Immature Gran % (Auto) 0.400 Neut % (Auto) 81.0 H Lymph % (Auto) 10.3 L [place] % (Auto) 6.2 Eos % (Auto) 1.7 Baso % (Auto) 0.4 Absolute Neuts (auto) 9.1 H Absolute Lymphs (auto) 1.16 Nucleated RBC % 0 Sodium 134 L Potassium 3.4 L Chloride 103 Carbon Dioxide 24.0 Anion Gap 7 BUN 68 H Creatinine 8.07 H* Estim Creat Clear Calc 7.76 Est GFR (MDRD) Af Amer 7 L Est GFR (MDRD) Non-Af 6 L BUN/Creatinine Ratio 8.4 L Glucose 93 Calcium 9.4 Total Bilirubin 0.20 AST 5 L ALT 15 Alkaline Phosphatase 100 Total Protein 9.1 H Albumin 3.5 Globulin 5.6 H Albumin/Globulin Ratio 0.6 L Lipase 203 Urine Color Straw Urine Clarity Clear Urine pH 6.5 Ur Specific [place] 1.010 Urine Protein 30 H Urine Glucose (UA) 100 H Urine Ketones Negative Urine Occult Blood 25 H Urine Nitrite Negative Urine Bilirubin Negative Urine Urobilinogen Normal Ur Leukocyte Esterase Negative Urine RBC 0-5 SEEN Urine WBC 0-5 SEEN Ur Squamous Epith Cells 0-5 SEEN Urine Bacteria 1+ Urine Mucus 0 SEEN - Medical Decision Making Review of patient's lab work in [facility] shows that on 03/03/2020 her hemoglobin was 14.9, hematocrit 43.7, GFR 60 with creatinine of 0.81, and BUN of 11. View of her blood work from yesterday shows that her BUN is 62, creatinine 7.06, hemoglobin 10.0, hematocrit 30.6. She does not have right upper quadrant pain she states she has mid epigastric pain which radiates down to just above the umbilicus and it comes in waves. It is worse when she eats. Patient creatinine tonight is 8. She was given a liter bolus and then started at 150/h. Hemoglobin was slightly lower at 9.6. I did a Hemoccult which was negative. CT of the abdomen pelvis is also negative. I feel that likely it was the increase in NSAIDs as well as starting lisinopril 2 weeks ago that probably caused her a cute kidney injury however unsure why she is anemic given she does not have blood in her stool. Discussed the patient with the hospitalist who admitted her in stable condition. Impression: 1. Acute kidney injury 2. Anemia 3. Abdominal pain ED Disposition - Plan for ED Patient: Disposition: Acute Care [facility]
--- NOTE | 2020-04-28 18:17 | CT_ITS ---
STUDY: CT ABDOMEN AND PELVIS WITHOUT CONTRAST REASON FOR EXAM: Female, 44 years old. ABDOMINAL PAIN. AND NAUSEA,EPISODE OF FEVER 2 WKS AGO -- ELEVATED WBC RADIATION DOSAGE (If Supplied By Facility): CTDIvol = ( 21.34 ) mGy, DLP = ( 1125.01 ) mGycm TECHNIQUE: Transaxial images were obtained from the dome of the diaphragm to the symphysis pubis without oral contrast, and without intravenous contrast. Sagittal and coronal images were reconstructed. Individualized dose optimization techniques were used for this CT. COMPARISON: None. FINDINGS: The visualized lung bases are unremarkable. The visualized portions of the heart are within normal limits. Normal liver. Normal gallbladder and extrahepatic biliary system. Normal spleen. Normal pancreas. Normal bilateral adrenal glands. Normal right kidney. Normal left kidney. Evaluation of the GI tract is limited by absence of oral contrast. Cannot exclude stomach wall thickening. No dilated loops of bowel or evidence for obstruction. Cannot exclude segmental thickening of the root of the small or large bowel. Cannot exclude enteritis or colitis. Moderate diffuse fecal retention. Appendix within normal limits. Normal abdominal aorta. Normal inferior vena cava. Normal retroperitoneum. Normal urinary bladder. There is absence of the uterus consistent with a prior hysterectomy. Normal abdominal wall. Normal osseous structures. CT/Abdomen/Pelvis without Cont IMPRESSION: No definite acute or significant abnormality seen. Electronically Signed: Lonnie Chavez MD at 18:59 EST , Service support ,
[2020-04-28] MEDS: Ondansetron 4 MG/2 ML Vial IV (18:27)
[2020-04-28] MEDS: 0.9% Normal Saline 1,000 ML 999 ML IV (18:27)
[2020-04-28] MEDS: Morphine 2 MG/ML Syringe IV (18:27)
[2020-04-28 18:33] LABS: Mucous, Urine 0 SEEN /hpf (<or=2+)
[2020-04-28 18:35] LABS: Absolute Lymphocyte Count 1.16 X10^3/uL (0.83-4.51); Absolute Neutrophil Count 9.1 X10^3/uL (2.0-7.7); Basophil# 0.05 X10^3/uL; Basophil% 0.4 % (0-1); Eosinophil# 0.19 X10^3/uL; Eosinophils% 1.7 % (0-5); Hematocrit 28.9 % (37-47); Hemoglobin 9.6 g/dL (12.0-15.0); Lymphocyte # 1.16 X10^3/ul (4.0); Lymphocyte % 10.3 % (19-41); Mean Corp Hgb Conc 33.2 g/dL (32-36); Mean Corpuscular Hgb 29.4 pg (27.0-32.0); Mean Corpuscular Volume 88.4 fL (81-99); Mean Platelet Vol. 9.3 fl (6.2-12.0); Monocyte% 6.2 % (0-10); NRBC Flagged by Analyzer 0 % (0-5); Neutrophil # 9.07 X10^3/uL (2.7-7.7); Platelet Count 363 K/mm3 (150-450); RBC Distribution Width CV 12.5 % (11.6-14.6); RBC Distribution Width SD 40.2 fl (35.1-43.9); Red Blood Count 3.27 M/mm3 (4.2-5.4); White Blood Count 11.2 K/mm3 (4.4-11.0)
[2020-04-28 18:37] LABS: Color, Urine Straw (Yellow); Glucose, Dipstick 100 mg/dl (Normal); Ketone-Dipstick Negative (Negative); Leukocyte Esterase-Dipstick Negative /ul (Negative); Nitrite-Dipstick Negative (Negative); Occult Blood-Urine 25 /ul (Negative); Protein-Dipstick 30 mg/dl (Negative); Urine Bilirubin Dipstick Negative (Negative); Urine Clarity Clear (Clear); Urine Urobilinogen Normal (Normal); Urine pH 6.5 (5.0 - 8.0)
[2020-04-28 18:51] LABS: Squamous Epithelial Cells - UA 0-5 SEEN /hpf (5-10); White Blood Cells 0-5 SEEN /hpf (0-5)
[2020-04-28 18:52] LABS: Bacteria 1+ /hpf (None Seen); Red Blood Cells-Urine 0-5 SEEN /hpf (0-5)
[2020-04-28 19:10] LABS: ALB/GLOB Ratio 0.6 RATIO (0.9-2.4); AST(SGOT) 5 U/L (15-37); Alanine Aminotransfer ALT/SGPT 15 U/L (13-56); Albumin, Serum 3.5 g/dL (3.2-5.0); Alkaline Phosphatase 100 U/L (45-117); Anion Gap 7 (5-15); BUN 68 mg/dL (7-18); BUN/Creat Ratio 8.4 RATIO (10-20); Calcium,Total 9.4 mg/dL (8.5-10.1); Chloride 103 mmol/L (98-107); Creatinine, Serum 8.07 mg/dL (0.55-1.02); EST Glomerular Filtration Rate 6 mL/min (>60); Est Glom Filt Rate - Afr Amer 7 mL/min (>60); Estimated Creatinine Clearance 7.76 ml/min; Globulin 5.6 g/dL (2.2-4.2); Glucose 93 mg/dL (74-106); Lipase 203 U/L (73-393); Potassium 3.4 mmol/L (3.5-5.1); Protein, Total 9.1 g/dL (6.4-8.2); Sodium Level 134 mmol/L (136-145)
[2020-04-28] MEDS: 0.9% Normal Saline 1,000 ML 150 ML IV (20:39)
[2020-04-28 20:40] VITALS: BP 134/76; PULSE 93; RESP 16; O2SAT 100
--- NOTE | 2020-04-28 21:02 | HP.PCM_ITS ---
Problem List (1) CORAZON (acute kidney injury) Status: Acute (2) Chronic pelvic pain in female Status: Chronic Comment: s/p ablation, not hormonal candidate, discussed and recommend TVH BS (3) Body mass index (BMI) of 40.1 to 44.9 in adult Status: Chronic Comment: nutrition consult, low carb diet, SW 236, adipex (4) Hypertension Status: Chronic Qualifiers: (5) Allergy-induced asthma Status: Chronic (6) Anemia Status: Acute History of Present Illness Date of Admission: 04/28/20 Chief Complaint: Abnormal labs. The patient is a 44 year old F with a significant history of degenerative disc disease; and hypertension who presents emergency department with abnormal lab work. Before presentation patient's outpatient lab work showed a sed rate of 103; elevated BUN and creatinine and anemia. Her PCP repeated these lab work the next day but it did not change. Patient was therefore sent to the emergency department. Associated with her symptoms is abdominal pain and nausea. She describes her abdominal pain as cramping. Patient reported that 5 weeks ago she had a fever while planning for ACL revision. A Covid test x2 was negative at that time. The ACL revision went all as planned. Cultures of synovial fluid was negative. Past Medical History Past Medical History (Chronic Problems): Chronic Problems (Last Reviewed 04/28/20 @ 21:[address] Jose Alejandro Hardin MD) Chronic pelvic pain in female (Chronic) s/p ablation, not hormonal candidate, discussed and recommend TVH BS Body mass index (BMI) of 40.1 to 44.9 in adult (Chronic) nutrition consult, low carb diet, SW 236, adipex Hypertension (Chronic) Allergy-induced asthma (Chronic) Medical History: Medical History (Last Reviewed 04/28/20 @ 21:[address] Jose Alejandro Hardin MD) Hypertension (Chronic) I10 Allergy-induced asthma (Chronic) J45.909 Abnormal uterine bleeding N93.9 Hip tendonitis M76.899 bilteral hips Allergies Penicillins Allergy (Mild, Verified 04/28/20 17:28) unknown Home Medications: Ambulatory Orders Medication Instructions Recorded albuterol sulfate 90 mcg/actuation 2 puff INHALATION Q6H PRN 10/27/17 aerosol inhaler Hydrochlorothiazide 12.5 mg PO DAILY 04/28/20 Lisinopril [Zestril] 5 mg PO DAILY 04/28/20 Surgical History: Surgical History (Last Reviewed 03/08/19 @ 10:00 by Jacque Hook) History of endometrial ablation Z98.890 S/P ACL repair Z98.890 History of bunionectomy of both great toes Z98.890 S/P tubal ligation Z98.51 Smoking Status: Former smoker - *Family History Maternal Family History: Family History (Last Reviewed 04/28/20 @ 21:[address] Jose Alejandro Hardin MD) Father Diabetes CVA (cerebral vascular accident) Hypertension Mother Lung cancer Grandfather Leukemia Grandmother Diabetes Review of Systems Constitutional: Reports: Anorexia, Fatigue. Denies: Chills, Fever, Weight Change HEENT: Denies: Head Aches, Sinus Congestion, Sinus Drainage Cardiovascular: Denies: Chest Pain, Palpitations Respiratory: Denies: Cough, Shortness of breath at rest, Sputum production Gastrointestinal: Reports: Abdominal Pain, Nausea. Denies: Vomiting Genitourinary: Denies: Dysuria Musculoskeletal: Denies: Joint Pain, Joint Tenderness Skin: Denies: Rash, Wounds Neurological: Denies: Numbness, Tingling, Focal weakness Psychiatric: Denies: Anxiety, Depression, Homicidal Ideations, Suicidal Ideations Hematologic/ Lymphatic: Denies: Easy Bruising, Easy Bleeding VTE Information - Inpt Only VTE Present on Admission: No VTE Mechan Device Prophylaxis: SCD's VTE Pharm Prophylaxis ordered?: No Patient Problems: Active and Suspected Problems (Last Reviewed 04/28/20 @ 21:[address] Jose Alejandro Hardin MD) CORAZON (acute kidney injury) (Acute) Anemia (Acute) - Physical Exam Vitals/I&O's: Vital Signs Temp Pulse Resp BP Pulse Ox 96 F L 93 16 134/76 H 100 04/28/20 17:29 04/28/20 20:40 04/28/20 20:40 04/28/20 20:40 04/28/20 20:40 Oxygen Delivery Method Room Air Weight: 103.9 kg Body Mass Index (BMI) 39.3 Intake and Output for Last 24 Hours 04/26/20 04/27/20 04/28/20 23:59 23:59 23:59 Intake Total 1000 / 1000 Balance 1000 / 1000 General: Alert, Oriented x3, Cooperative HEENT: Atraumatic, PERRLA, EOMI, Normocephalic Neck: Supple, No JVD, Negative Carotid Bruits Lungs: Clear to auscultation, Normal air movement Cardiovascular: Regular rate, Normal S1, Normal S2, No murmurs Abdomen: Bowel Sounds Present, Soft, Non Tender Extremities: No edema, Capillary Refill Less than 3 Seconds Skin: No rashes, No breakdown Musculoskeletal: No Tenderness to Palpation of Joints or Extremities Neurological: Cranial nerves II-XII grossly intact Psych/Mental Status: Normal Affect, Appropriate Microbiology Past 72 Hours 04/28/20 19:20 Stool Stool Occult Blood (LAURA) - Final Laboratory Results 04/28/20 18:20: Urine Color Straw, Urine Clarity Clear, Urine pH 6.5, Ur Speci fic [place] 1.010, Urine Protein 30 H, Urine Glucose (UA) 100 H, Urine Ketones Negative, Urine Occult Blood 25 H, Urine Nitrite Negative, Urine Bilirubin Negative, Urine Urobilinogen Normal, Ur Leukocyte Esterase Negative, Urine RBC 0-5 SEEN, Urine WBC 0-5 SEEN, Ur Squamous Epith Cells 0-5 SEEN, Urine Bacteria 1+, Urine Mucus 0 SEEN 04/28/20 18:22: WBC 11.2 H, RBC 3.27 L, Hgb 9.6 L, Hct 28.9 L, MCV 88.4, MCH 29.4, MCHC 33.2, RDW Std Deviation 40.2, RDW Coeff of Daya 12.5, Plt Count 363, MPV 9.3, Immature Gran % (Auto) 0.400, Neut % (Auto) 81.0 H, Lymph % (Auto) 10.3 L, [place] % (Auto) 6.2, Eos % (Auto) 1.7, Baso % (Auto) 0.4, Absolute Neuts (auto) 9.1 H, Absolute Lymphs (auto) 1.16, Nucleated RBC % 0 04/28/20 18:22: Sodium 134 L, Potassium 3.4 L, Chloride 103, Carbon Dioxide 24.0, Anion Gap 7, BUN 68 H, Creatinine 8.07 H*, Estim Creat Clear Calc 7.76, Est GFR (MDRD) Af Amer 7 L, Est GFR (MDRD) Non-Af 6 L, BUN/Creatinine Ratio 8.4 L, Glucose 93, Calcium 9.4, Total Bilirubin 0.20, AST 5 L, ALT 15, Alkaline Phosphatase 100, Total Protein 9.1 H, Albumin 3.5, Globulin 5.6 H, Alb umin/Globulin Ratio 0.6 L, Lipase 203 Current Medications Sodium Chloride () 1,000 mls @ 150 mls/hr IV .[id number] [facility] Last Admin: 04/28/20 20:39 Dose: 150 mls/hr Documented by: Assessment/Plan All Active Problems (Last Reviewed 04/28/20 @ 21:[address] Jose Alejandro Hardin MD) CORAZON (acute kidney injury) (Acute) Anemia (Acute) CORAZON Creatinine on presentation was 8.07. Review of outpatient paperwork showed that her creatinine on 03/03/2020 was 0.81. BUN on presentation was 68. BUN over creatinine 8.4. Reportedly she has been on Mobic for many years but last time she took Mobic was about the beginning of the year. She then began taking Voltaren p.o. After her recent surgery Voltaren was switched to etodolac. Hold NSAIDs. Reportedly she was on lisinopril for few weeks. Currently on hydrochlorothiazide. Hold hydrochlorothiazide. Avoid nephrotoxins. Urine electrolytes ordered. CT scan of abdomen pelvis unremarkable. Gentle IV hydration. Nephrology consult. Abdominal pain Etiology unclear. With anemia will order Protonix p.o. Bentyl ordered. Normocytic acute anemia Hemoglobin on presentation was 9.6 on 03/03/2020 her hemoglobin was 14.9. Occult stools ordered. Protonix as above. Iron studies including ferritin; reticulocyte cervical vitamin B-12; and folate. LDH and haptoglobin ordered Consider GI/general surgery referral for endoscopy upon discharge if etiology of anemia not found. DVT prophylaxis SCD ordered. Inpatient E&M: [id number] Init Hosp L3
[2020-04-28 21:34] VITALS: BP 148/74; PULSE 74; RESP 16; TEMP 36.6; O2SAT 97
[2020-04-28 21:50] VITALS: BMI 39.9; BMI 40.0
[2020-04-28] MEDS: Pantoprazole Sodium 40 MG Tablet PO (22:36)
[2020-04-28] MEDS: Acetaminophen 325 MG Tablet 650 MG PO (22:36)
[2020-04-28] MEDS: Dicyclomine 10 MG Capsule PO (22:36)
[2020-04-28] MEDS: 0.9% Normal Saline 1,000 ML 100 ML IV (22:41)
[2020-04-28 22:46] LABS: Urine Sodium 34 mmol/L (Not Establ.)
[2020-04-28 22:47] LABS: Platelet Count 382 K/mm3 (150-450); RET-HE 32.9 pg (30-35); Reticulocyte Count 1.06 % (0.5-1.5)
[2020-04-28 22:52] LABS: Vitamin B12 591 pg/mL (211-911)
[2020-04-28 22:54] LABS: Urea Nitrogen, Urine 396 mg/dL (NO RANGE EST.)
[2020-04-28 22:55] LABS: Ferritin 510 ng/mL (8-252); Iron 73 ug/dL (50-170); Iron Binding Capacity,Total 317 ug/dL (250-450); LDH 178 U/L (84-246)
[2020-04-29] VITALS (8 sets, daily range): BP systolic 122–151; BP diastolic 62–93; PULSE 78–92; RESP 16–18; TEMP 36.6–36.9; O2SAT 98–100
[2020-04-29] MEDS: Ondansetron 4 MG/2 ML Vial IV (00:03)
[2020-04-29] MEDS: 0.9% Normal Saline 1,000 ML 100 ML IV ×2 (04:03→14:49)
[2020-04-29] MEDS: Dicyclomine 10 MG Capsule PO ×4 (06:36→21:00)
[2020-04-29 07:12] LABS: Absolute Lymphocyte Count 1.16 X10^3/uL (0.83-4.51); Absolute Neutrophil Count 6.3 X10^3/uL (2.0-7.7); Basophil# 0.03 X10^3/uL; Basophil% 0.4 % (0-1); Eosinophil# 0.19 X10^3/uL; Eosinophils% 2.3 % (0-5); Hematocrit 28.4 % (37-47); Hemoglobin 9.2 g/dL (12.0-15.0); Lymphocyte # 1.16 X10^3/ul (4.0); Lymphocyte % 13.9 % (19-41); Mean Corp Hgb Conc 32.4 g/dL (32-36); Mean Corpuscular Hgb 28.8 pg (27.0-32.0); Mean Platelet Vol. 9.6 fl (6.2-12.0); Monocyte# 0.65 X10^3/uL; Monocyte% 7.8 % (0-10); NRBC Flagged by Analyzer 0 % (0-5); Neutrophil # 6.29 X10^3/uL (2.7-7.7); Neutrophil % 75.4 % (47-70); Platelet Count 305 K/mm3 (150-450); RBC Distribution Width CV 12.6 % (11.6-14.6); RBC Distribution Width SD 41.3 fl (35.1-43.9); Red Blood Count 3.19 M/mm3 (4.2-5.4); White Blood Count 8.3 K/mm3 (4.4-11.0)
[2020-04-29 07:52] LABS: Anion Gap 7 (5-15); BUN 62 mg/dL (7-18); Calcium,Total 8.7 mg/dL (8.5-10.1); Chloride 109 mmol/L (98-107); Creatinine, Serum 7.71 mg/dL (0.55-1.02); EST Glomerular Filtration Rate 6 mL/min (>60); Est Glom Filt Rate - Afr Amer 7 mL/min (>60); Estimated Creatinine Clearance 8.12 ml/min; Glucose 84 mg/dL (74-106); Potassium 4.2 mmol/L (3.5-5.1); Sodium Level 138 mmol/L (136-145)
[2020-04-29] MEDS: Pantoprazole Sodium 40 MG Tablet PO ×2 (09:15→21:00)
--- NOTE | 2020-04-29 09:39 | US_ITS ---
STUDY: RENAL ULTRASOUND - COMPLETE REASON FOR EXAM: Female, 44 years old. viktor TECHNIQUE: Ultrasound evaluation of the kidneys was performed with real-time and static ryder-scale imaging. COMPARISON: None. FINDINGS: RIGHT KIDNEY: Normal location of the right kidney, which is normal in size. The right kidney measures 12 cm x 5.8 cm x 5.8 cm. There is a normal cortex of the right kidney. The renal cortex measures 2.5 cm. There is no right renal mass or cyst. There are no right renal calculi. There is no right hydronephrosis. DISTAL RIGHT URETER: There is non-visualization of the distal right ureter. There is no demonstrated right ureterovesical junction calculus. There is a visualized right ureteral jet. LEFT KIDNEY: Normal location of the left kidney, which is normal in size. The left kidney measures 13.5 cm x 5.6 cm x 6.1 cm. There is a normal cortex of the left kidney. The renal cortex measures 2.2 cm. There is no left renal mass or cyst. There are no left renal calculi. There is no left hydronephrosis. DISTAL LEFT URETER: There is non-visualization of the distal left ureter. There is no demonstrated left ureterovesical junction calculus. There is a visualized left ureteral jet. BLADDER: The distended urinary bladder has a volume of 34 ml. There is a normal wall thickness of the distended urinary bladder. There is no demonstrated mass within the urinary bladder. There are no demonstrated bladder calculi. US/Kidney and Bladder IMPRESSION: Normal ultrasound of the kidneys and urinary bladder. Electronically Signed: Barrett Calvert, at 13:10 EST , Service support ,
[2020-04-29 10:09] LABS: CPK Total, Creatine Kinase 64 U/L (26-192)
--- NOTE | 2020-04-29 10:25 | CASEMGMT ---
RN CM Face to Face with patient for initial transition planning/care coordination assessment. RN CM introduced self and role at [facility]. Patient sitting in chair, alert and oriented. Patient willing to participate in assessment and is able to answer all questions appropriately. Care providers, pharmacy, and demographics verified. Patient wishes to discharge home, denies need for home health at this time. Patient states she has no further needs or concerns at this time. CM to follow for discharge planning needs that may arise. PCP: [facility] Specialists: [facility] Pharmacy: [facility] Insurance: [place] Prescription Benefit: yes Living Will/HPOA: none LNOK: Living Arrangements: Patient lives with in a 2 story home with bed and bath on first floor. 3 steps and railing to enter the home. Patient states she is independent at home. Transportation: self/ DME/HHC: Patient denies DME or previous HHC. Disposition Plan: Patient to discharge home with family support and follow-up plans in place. Camelia MALAGON, RN, CM
[2020-04-29] MEDS: Acetaminophen 325 MG Tablet 650 MG PO ×2 (10:43→20:58)
--- NOTE | 2020-04-29 12:17 | PCM.CONS.R ---
Consultation - Renal 04/29/20 PCP/ Referring MD: Requesting physician: [] Primary care physician: Dr. Trevor Govea III, MD Reason for Consultation:: corazon - History of Present Illness History of Present Illness: The patient is a 44 year old F with past medical history of arthritis and hypertension who presented with ESR 103 elevated BUN and creatinine from her PCP office. The patient states that she had nausea but no vomiting no diarrhea and some abdominal cramps for about 5 weeks prior to admission. On March 31 she underwent ACL revision and according to her the synovial fluid culture was negative. She also had some fever prior to March 31 and was given some antibiotics by the orthopedic surgeon and the fever subsided. She admits to decreased p.o. intake for about 5 weeks prior to admission. Denies dry eyes dry mouth hemoptysis gross hematuria lower extremity edema puffy face skin rashes skin nodules. She denies ever seeing a student services counselor or urologist before. She states she has been taking NSAIDs for 8 years most recently Voltaren last NSAID was taken on about 6 days ago. Denies sob/cp/f/c no other c/o. - Allergies Allergies: Allergies Penicillins Allergy (Mild, Verified 04/28/20 22:04) Hives? Pt has not had it in many years - Current Medications Current Medications: Current Medications Acetaminophen (Acetaminophen 325 Mg Tablet) 650 mg PO Q6H PRN PRN PRN Reason: Pain Score 1-10/Temp > 100.7 F Last Admin: 04/29/20 10:43 Dose: 650 mg Documented by: Albuterol Sulfate (Albuterol 2.5 Mg/3 Ml Vial.Neb.) 2.5 mg INHALATION Q2H PRN PRN PRN Reason: SOB/WHEEZING Dicyclomine HCl (Dicyclomine 10 Mg Capsule) 10 mg PO ACHS CLAUDIO Last Admin: 04/29/20 10:44 Dose: 10 mg Documented by: Hydralazine HCl (Hydralazine 25 Mg Tablet) 25 mg PO TID CLAUDIO Sodium Chloride () 1,000 mls @ 100 mls/hr IV .Q10H CLAUDIO Last Admin: 04/29/20 04:03 Dose: 100 mls/hr Documented by: Melatonin (Melatonin 3 Mg Tablet) 3 mg PO QHS PRN PRN PRN Reason: INSOMNIA Ondansetron HCl (Ondansetron 4 Mg/2 Ml Vial) 4 mg IV Q6H PRN PRN PRN Reason: NAUSEA/VOMITING Last Admin: 04/29/20 00:03 Dose: 4 mg Documented by: Pantoprazole Sodium (Pantoprazole Sodium 40 Mg Tablet) 40 mg PO BID [facility] Last Admin: 04/29/20 09:15 Dose: 40 mg Documented by: Pregabalin (Pregabalin 50 Mg Capsule) 50 mg PO DAILY [facility] Last Admin: 04/29/20 09:15 Dose: Not Given Documented by: Sodium Chloride (0.9% Saline Lock 10 Ml Syringe) 10 - 40 ml IV UD PRN PRN Reason: SALINE FLUSH - Past Medical History Past Medical History (Chronic Problems): Chronic Problems (Last Reviewed 04/28/20 @ 21:[address] Jose Alejandro Hardin MD) Chronic pelvic pain in female (Chronic) s/p ablation, not hormonal candidate, discussed and recommend TVH BS Body mass index (BMI) of 40.1 to 44.9 in adult (Chronic) nutrition consult, low carb diet, SW 236, adipex Hypertension (Chronic) Allergy-induced asthma (Chronic) - Social History Smoking Status: Former smoker - Family History Maternal Family History: Family History (Last Reviewed 04/28/20 @ 21:[address] Jose Alejandro Hardin MD) Father Diabetes CVA (cerebral vascular accident) Hypertension Mother Lung cancer Grandfather Leukemia Grandmother Diabetes Review of Systems Eyes: Reports: - - Negative unless noted in the HPI Patient Problems: Active and Suspected Problems (Last Reviewed 04/28/20 @ 21:[address] Jose Alejandro Hardin MD) CORAZON (acute kidney injury) (Acute) Anemia (Acute) - Physical Exam Vitals/I&O's: Vital Signs Temp Pulse Resp BP Pulse Ox 97.9 F 78 16 151/93 H 98 04/29/20 08:54 04/29/20 08:54 04/29/20 08:54 04/29/20 08:54 04/29/20 09:45 Oxygen Delivery Method Room Air Weight: 105.6 kg Body Mass Index (BMI) 39.9 Intake and Output for Last 24 Hours 04/27/20 04/28/20 04/29/20 23:59 23:59 23:59 Intake Total 1465 / 1465 886.67 / 886.67 Output Total 700 / 700 Balance 1465 / 1465 186.67 / 186.67 General: Alert, Cooperative, No apparent distress HEENT: EOMI Neck: Supple Lungs: Clear to auscultation, Normal air movement Cardiovascular: Regular rate, Regular Rhythm, Normal S1, Normal S2 Abdomen: Bowel Sounds Present, Soft, Non Tender Extremities: No clubbing Skin: No rashes Microbiology Past 72 Hours 04/28/20 19:20 Stool Stool Occult Blood (LAURA) - Final Laboratory Results 04/28/20 18:20: Urine Color Straw, Urine Clarity Clear, Urine pH 6.5, Ur Specific [place] 1.010, Urine Protein 30 H, Urine Glucose (UA) 100 H, Urine Ketones Negative, Urine Occult Blood 25 H, Urine Nitrite Negative, Urine Bilirubin Negative, Urine Urobilinogen Normal, Ur Leukocyte Esterase Negative, Urine RBC 0-5 SEEN, Urine WBC 0-5 SEEN, Ur Squamous Epith Cells 0-5 SEEN, Urine Bacteria 1+, Urine Mucus 0 SEEN 04/28/20 18:20: Urine Creatinine 71.00 04/28/20 18:20: Urine Urea Nitrogen 396 04/28/20 18:20: Ur Random Sodium 34 04/28/20 18:22: WBC 11.2 H, RBC 3.27 L, Hgb 9.6 L, Hct 28.9 L, MCV 88.4, MCH 29.4, MCHC 33.2, RDW Std Deviation 40.2, RDW Coeff of Daya 12.5, Plt Count 363, MPV 9.3, Immature Gran % (Auto) 0.400, Neut % (Auto) 81.0 H, Lymph % (Auto) 10.3 L, [place] % (Auto) 6.2, Eos % (Auto) 1.7, Baso % (Auto) 0.4, Absolute Neuts (auto) 9.1 H, Absolute Lymphs (auto) 1.16, Nucleated RBC % 0 04/28/20 18:22: Sodium 134 L, Potassium 3.4 L, Chloride 103, Carbon Dioxide 24.0, Anion Gap 7, BUN 68 H, Creatinine 8.07 H*, Estim Creat Clear Calc 7.76, Est GFR (MDRD) Af Amer 7 L, Est GFR (MDRD) Non-Af 6 L, BUN/Creatinine Ratio 8.4 L, Glucose 93, Calcium 9.4, Total Bilirubin 0.20, AST 5 L, ALT 15, Alkaline Phosphatase 100, Total Protein 9.1 H, Albumin 3.5, Globulin 5.6 H, Albumin/Globulin Ratio 0.6 L, Lipase 203 04/28/20 18:22: Iron 73, TIBC 317, Iron Saturation 23.0, Ferritin 510 H, Lactate Dehydrogenase 178, Folate 12.30 04/28/20 18:22: Haptoglobin Pending 04/28/20 18:22: Retic Count 1.06, Immature Retic Fraction 4.20, Retic Hgb Equivalent 32.9 04/28/20 18:22: Vitamin B12 591 04/29/20 06:40: WBC 8.3, RBC 3.19 L, Hgb 9.2 L, Hct 28.4 L, MCV 89.0, MCH 28.8, MCHC 32.4, RDW Std Deviation 41.3, RDW Coeff of Daya 12.6, Plt Count 305, MPV 9.6, Immature Gran % (Auto) 0.200, Neut % (Auto) 75.4 H, Lymph % (Auto) 13.9 L, [place] % (Auto) 7.8, Eos % (Auto) 2.3, Baso % (Auto) 0.4, Absolute Neuts (auto) 6.3, Absolute Lymphs (auto) 1.16, Nucleated RBC % 0 04/29/20 06:40: Sodium 138, Potassium 4.2, Chloride 109 H, Carbon Dioxide 22.0, Anion Gap 7, BUN 62 H, Creatinine 7.71 H*, Estim Creat Clear Calc 8.12, Est GFR (MDRD) Af Amer 7 L, Est GFR (MDRD) Non-Af 6 L, BUN/Creatinine Ratio 8.0 L, Glucose 84, Calcium 8.7 04/29/20 06:40: Total Creatine Kinase 64 Current Medications Acetaminophen (Acetaminophen 325 Mg Tablet) 650 mg PO Q6H PRN PRN PRN Reason: Pain Score 1-10/Temp > 100.7 F Last Admin: 04/29/20 10:43 Dose: 650 mg Documented by: Albuterol Sulfate (Albuterol 2.5 Mg/3 Ml Vial.Neb.) 2.5 mg INHALATION Q2H PRN PRN PRN Reason: SOB/WHEEZING Dicyclomine HCl (Dicyclomine 10 Mg Capsule) 10 mg PO ACHS [facility] Last Admin: 04/29/20 10:44 Dose: 10 mg Documented by: Hydralazine HCl (Hydralazine 25 Mg Tablet) 25 mg PO TID [facility] Sodium Chloride () 1,000 mls @ 100 mls/hr IV .Q10H [facility] Last Admin: 04/29/20 04:03 Dose: 100 mls/hr Documented by: Melatonin (Melatonin 3 Mg Tablet) 3 mg PO QHS PRN PRN PRN Reason: INSOMNIA Ondansetron HCl (Ondansetron 4 Mg/2 Ml Vial) 4 mg IV Q6H PRN PRN PRN Reason: NAUSEA/VOMITING Last Admin: 04/29/20 00:03 Dose: 4 mg Documented by: Pantoprazole Sodium (Pantoprazole Sodium 40 Mg Tablet) 40 mg PO BID [facility] Last Admin: 04/29/20 09:15 Dose: 40 mg Documented by: Pregabalin (Pregabalin 50 Mg Capsule) 50 mg PO DAILY [facility] Last Admin: 04/29/20 09:15 Dose: Not Given Documented by: Sodium Chloride (0.9% Saline Lock 10 Ml Syringe) 10 - 40 ml IV UD PRN PRN Reason: SALINE FLUSH Assessment/Plan All Active Problems (Last Reviewed 04/28/20 @ 21:[address] Jose Alejandro Hardin MD) CORAZON (acute kidney injury) (Acute) Anemia (Acute) CORAZON r/o RPGN HTN check serologies 24 hour doppler renal arteries Continue IV fluids Avoid nephrotoxins Blood pressure acceptable continue current medications If no improvement in renal function will proceed with renal biopsy consider blood cultures UA sediment bland Other work-up as indicated by clinical course. d/w patient Above assessment and plan was discussed at length with the patient who voiced understanding and agrees to proceed with the plan as outlined above. She was was given the opportunity to ask questions and stated that those were answered to her satisfaction. Thank you very much for allowing me to participate in the care of this patient. Please do not hesitate to call if you have any questions or concerns.
--- NOTE | 2020-04-29 12:24 | RDU_ITS ---
Reason For Study: CORAZON Right Renal Artery Left Renal Artery Right renal artery ostium 76/24.8 Left renal artery ostium 70.5/15.7 RSV/EDV. PSV/EDV. Right renal artery proximal Left renal artery proximal PSV/EDV 96.1/21.2 PSV/EDV. 83.3/17.5 . Right renal artery mid 88.8/21.2 Left renal artery mid 67.3/19.6 PSV/EDV. PSV/EDV . Right renal artery distal 108/27.8 Left renal artery distal 75.5/21.2 PSV/EDV. PSV/EDV. Right Renal Parenchyma Left Renal Parenchyma Upper Pole Medula 22.9/6.4 PSV/EDV. Left upper pole medulla 26.3/7.9 Right upper pole medulla EDR 0.28 . PSV/EDV . Right upper pole medulla R.I. Left upper pole medulla EDR 0.30 . 0.72 . Left upper pole medulla R.I. 0.70 . Upper [place] Cortx 17.4/5.3 PSV/EDV. UP Cortex 1707/6.1 PSV/EDV. Right upper pole cortex EDR 0.30 . Left upper pole cortex EDR 0.34 . Right upper pole cortex R.I. 0.70 . Left upper pole cortex R.I. 0.66 . Right lower Pole medulla 22.9/7.5 Left lower Pole medulla 27/9.2 PSV/EDV . PSV/EDV . Right lower pole medulla EDR 0.33 . Left lower pole medulla EDR 0.34 . Right lower pole medulla R.I. Left lower pole medulla R.I. 066 . 0.67 . Lower Pole Cortx 21.4/9.2 PSV/EDV. Lower Pole Cortex 17.4/5.8 PSV/EDV. Left lower pole cortex EDR 0.43 . Right lower pole cortex EDR 0.34 . Left lower pole cortex R.I. 0.57 . Right lower pole cortex R.I. 0.66 . Left Renal Hilar Right Renal Hilar LT Hilar avg 33.1/9.2 PSV/EDV . Right Hilar avg 38.2/11.3 PSV/EDV. Left hilar acceleration time 40 Right hilar acceleration time 30 m/sec. m/sec. Left Renal Dimensions Right Renal Dimensions Left kidney size 13.0 cm . Right kidney size 11.73 cm . Left cortical dimension 2.5 cm . Right cortical dimension 2.3 cm . Aorta Proximal abdominal aorta 1.54 x 1.56 cm . Proximal abdominal aorta peak systolic velocity is 88.8 cm/sec . Distal abdominal aorta 1.46 x 1.44 cm . Distal abdominal aorta peak systolic velocity is 105.2 cm/sec . Interpretation Summary Normal proximal aortic diameter at 1.54 x 1.56 cm. Normal proximal abdominal aortic peak systolic velocity 8.8 cm/s. Minimally elevated distal abdominal aortic peak systolic velocity at 105 cm/s Less than 60% stenosis bilateral renal arteries Normal bilateral renal resistivity indices Right renal length 11.73 cm; normal Left renal length 13 cm; normal Ordering Physician: Lee Loja Referring Physician: ALY Govea M.D. Performed By: Camelia Richardson RVT
--- NOTE | 2020-04-29 13:20 | ECHOCS_ITS ---
Reason For Study: ARRHYTHMIA Procedure This was a 2D Doppler, Color Flow transthoracic echocardiogram. Exam performed portable in patient room. Left Ventricle Normal LV size. Left ventricular systolic function is normal. The estimated ejection fraction is 60 %. No regional wall motion abnormalities noted. Right Ventricle Normal RV size. Normal systolic function. Atria Normal left atrium. Normal right atrium. Mitral Valve Normal mitral valve. Tricuspid Valve Normal tricuspid valve. Mild tricuspid valve insufficiency. Aortic Valve Normal aortic valve. Pulmonic Valve Normal pulmonic valve. Great Vessels Normal aortic root. The pulmonary artery is normal size. Normal inferior vena cava. Pericardium/Pleural No pericardial effusion. Medication Diluted definity 3ml given slow IV push to enhance endocardial definition. MMode/2D Measurements & Calculations LVIDd: 4.4 cm IVSd: 0.85 cm Ao root diam: 3.0 cm LVIDs: 2.9 cm LVPWd: 0.85 cm RVDd: 3.1 cm FS: 33.8 % LAV(MOD-bp): 47.4 ml LVAd ap4: 29.4 cm2 SV(MOD-sp4): 50.5 ml LAV(MOD-bp) Indexed: 22.8 ml/m2 EDV(MOD-sp4): 91.8 ml LAV(MOD-sp2): 40.9 ml EDV(sp4-el): 96.8 ml LAV(MOD-sp4): 47.7 ml LVAs ap4: 18.4 cm2 ESV(MOD-sp4): 41.3 ml ESV(sp4-el): 41.8 ml EF(MOD-sp4): 55.0 % EF(sp4-el): 56.8 % SV(sp4-el): 55.0 ml LA A4 area: 19.2 cm2 LA dimension(2D): 3.5 cm RA A4 area: 13.5 cm2 Time Measurements MV dec time: 0.15 sec Doppler Measurements & Calculations MV E max joshua: 94.2 cm/sec Lat Peak E' Joshua: 19.8 cm/sec Med Peak E' Joshua: 14.4 cm/sec MV A max joshua: 68.6 cm/sec E/E' lat: 4.8 E/E' med: 6.5 MV E/A: 1.4 Ao V2 max: 149.5 cm/sec LV V1 max: 86.4 cm/sec PA V2 max: 104.6 cm/sec Ao max P.9 mmHg LV V1 max P.0 mmHg TR max joshua: 273.9 cm/sec TR max P.0 mmHg Interpretation Summary Normal LV size. Left ventricular systolic function is normal. The estimated ejection fraction is 60 %. Mild tricuspid valve insufficiency. Contrast injection was performed. Ordering Physician: Jose Miguel Hi Referring Physician: CLIFFORD MENDENHALL Performed By: Chiara Hendricks RDCS
--- NOTE | 2020-04-29 13:22 | PN_ITS ---
<Valentín Johansen - Last Filed: 04/29/20 13:22> Patient Problems: Active and Suspected Problems (Last Reviewed 04/28/20 @ 21:[address] Jose Alejandro Hardin MD) CORAZON (acute kidney injury) (Acute) Anemia (Acute) Reason for Visit: Renal failure Subjective: Pt with minimal complaints. She recently had ACL surgery at that time synovial fluid was negative. She had a fever prior to this however no fever since. She received clindamycin periop no abx after. She Has been taking an NSAID, lisinopril, and HCTZ since surgery. She also had severe nausea but no vomiting, she had minimal PO intake during this. She has not had renal function issues in the past. She has good urine output. Vitals/I&O's: Vital Signs Temp Pulse Resp BP Pulse Ox 97.9 F 78 16 151/93 H 98 04/29/20 08:54 04/29/20 08:54 04/29/20 08:54 04/29/20 08:54 04/29/20 09:45 Oxygen Delivery Method Room Air Weight: 232 lb 12.93 oz Body Mass Index (BMI) 39.9 Intake and Output for Last 24 Hours 04/27/20 04/28/20 04/29/20 23:59 23:59 23:59 Intake Total 1465 / 1465 886.67 / 886.67 Output Total 700 / 700 Balance 1465 / 1465 186.67 / 186.67 General: Alert, Oriented x3, Cooperative HEENT: Atraumatic, PERRLA, EOMI, Normocephalic Neck: Supple, No JVD, Negative Carotid Bruits Lungs: Clear to auscultation, Normal air movement Cardiovascular: Regular rate, No murmurs Abdomen: Bowel Sounds Present, Soft, Non Tender, Obese Extremities: No edema, Capillary Refill Less than 3 Seconds Skin: No rashes, No breakdown Musculoskeletal: No Tenderness to Palpation of Joints or Extremities Neurological: Cranial nerves II-XII grossly intact Psych/Mental Status: Normal Affect, Appropriate, Alert and oriented to time, place, person, mood and affect Microbiology Past 72 Hours 04/28/20 19:20 Stool Stool Occult Blood (LARUA) - Final Laboratory Results 04/28/20 18:20: Urine Color Straw, Urine Clarity Clear, Urine pH 6.5, Ur Specific Amite 1.010, Urine Protein 30 H, Urine Glucose (UA) 100 H, Urine Ketones Negative, Urine Occult Blood 25 H, Urine Nitrite Negative, Urine Bilirubin Negative, Urine Urobilinogen Normal, Ur Leukocyte Esterase Negative, Urine RBC 0-5 SEEN, Urine WBC 0-5 SEEN, Ur Squamous Epith Cells 0-5 SEEN, Urine Bacteria 1+, Urine Mucus 0 SEEN 04/28/20 18:20: Urine Creatinine 71.00 04/28/20 18:20: Urine Urea Nitrogen 396 04/28/20 18:20: Ur Random Sodium 34 04/28/20 18:22: WBC 11.2 H, RBC 3.27 L, Hgb 9.6 L, Hct 28.9 L, MCV 88.4, MCH 29.4, MCHC 33.2, RDW Std Deviation 40.2, RDW Coeff of Daya 12.5, Plt Count 363, MPV 9.3, Immature Gran % (Auto) 0.400, Neut % (Auto) 81.0 H, Lymph % (Auto) 10.3 L, [place] % (Auto) 6.2, Eos % (Auto) 1.7, Baso % (Auto) 0.4, Absolute Neuts (auto) 9.1 H, Absolute Lymphs (auto) 1.16, Nucleated RBC % 0 04/28/20 18:22: Sodium 134 L, Potassium 3.4 L, Chloride 103, Carbon Dioxide 24.0, Anion Gap 7, BUN 68 H, Creatinine 8.07 H*, Estim Creat Clear Calc 7.76, Est GFR (MDRD) Af Amer 7 L, Est GFR (MDRD) Non-Af 6 L, BUN/Creatinine Ratio 8.4 L, Glucose 93, Calcium 9.4, Total Bilirubin 0.20, AST 5 L, ALT 15, Alkaline Phosphatase 100, Total Protein 9.1 H, Albumin 3.5, Globulin 5.6 H, Albumin/Globulin Ratio 0.6 L, Lipase 203 04/28/20 18:22: Iron 73, TIBC 317, Iron Saturation 23.0, Ferritin 510 H, Lactate Dehydrogenase 178, Folate 12.30 04/28/20 18:22: Haptoglobin Pending 04/28/20 18:22: Retic Count 1.06, Immature Retic Fraction 4.20, Retic Hgb Equivalent 32.9 04/28/20 18:22: Vitamin B12 591 04/29/20 06:40: WBC 8.3, RBC 3.19 L, Hgb 9.2 L, Hct 28.4 L, MCV 89.0, MCH 28.8, MCHC 32.4, RDW Std Deviation 41.3, RDW Coeff of Daya 12.6, Plt Count 305, MPV 9.6, Immature Gran % (Auto) 0.200, Neut % (Auto) 75.4 H, Lymph % (Auto) 13.9 L, [place] % (Auto) 7.8, Eos % (Auto) 2.3, Baso % (Auto) 0.4, Absolute Neuts (auto) 6.3, Absolute Lymphs (auto) 1.16, Nucleated RBC % 0 04/29/20 06:40: Sodium 138, Potassium 4.2, Chloride 109 H, Carbon Dioxide 22.0, Anion Gap 7, BUN 62 H, Creatinine 7.71 H*, Estim Creat Clear Calc 8.12, Est GFR (MDRD) Af Amer 7 L, Est GFR (MDRD) Non-Af 6 L, BUN/Creatinine Ratio 8.0 L, Glucose 84, Calcium 8.7 04/29/20 06:40: Total Creatine Kinase 64 04/29/20 13:15: SWEETIE Screen Pending, KIMBERLY-1 Antibody Pending, SS-A/Ro IgG Antibody Pending, SS-B/La IgG Antibody Pending, Sm (Do) Antibody Pending, PARKING ENFORCEMENT SPECIALIST Antibody Pending, Scl-70 Scleroderma Ab Pending, Double Strand DNA Ab Pending, Centromere B Antibody Pending 04/29/20 13:15: c-ANCA Antibody Pending, p-ANCA Antibody Pending, Glomerular Base Memb Ab Pending 04/29/20 13:15: RPR Pending 04/29/20 13:15: IgG Pending, IgA Pending, IgM Pending, Serum Cryoglobulins Pending, Complement C3 Pending, Complement C4 Pending Current Medications Acetaminophen (Acetaminophen 325 Mg Tablet) 650 mg PO Q6H PRN PRN PRN Reason: Pain Score 1-10/Temp > 100.7 F Last Admin: 04/29/20 10:43 Dose: 650 mg Documented by: Albuterol Sulfate (Albuterol 2.5 Mg/3 Ml Vial.Neb.) 2.5 mg INHALATION Q2H PRN PRN PRN Reason: SOB/WHEEZING Dicyclomine HCl (Dicyclomine 10 Mg Capsule) 10 mg PO ACHS [facility] Last Admin: 04/29/20 10:44 Dose: 10 mg Documented by: Hydralazine HCl (Hydralazine 25 Mg Tablet) 25 mg PO TID [facility] Sodium Chloride () 1,000 mls @ 100 mls/hr IV .Q10H [facility] Last Admin: 04/29/20 04:03 Dose: 100 mls/hr Documented by: Melatonin (Melatonin 3 Mg Tablet) 3 mg PO QHS PRN PRN PRN Reason: INSOMNIA Ondansetron HCl (Ondansetron 4 Mg/2 Ml Vial) 4 mg IV Q6H PRN PRN PRN Reason: NAUSEA/VOMITING Last Admin: 04/29/20 00:03 Dose: 4 mg Documented by: Pantoprazole Sodium (Pantoprazole Sodium 40 Mg Tablet) 40 mg PO BID [facility] Last Admin: 04/29/20 09:15 Dose: 40 mg Documented by: Pregabalin (Pregabalin 50 Mg Capsule) 50 mg PO DAILY [facility] Last Admin: 04/29/20 09:15 Dose: Not Given Documented by: Sodium Chloride (0.9% Saline Lock 10 Ml Syringe) 10 - 40 ml IV UD PRN PRN Reason: SALINE FLUSH STROKE Vital Signs/Narrative: Vital Signs Pulse Ox 04/29/20 09:45 98 Medical Necessity - Tobacco Use Smoking Status: Former smoker Assessment/Plan All Active Problems (Last Reviewed 04/28/20 @ 21:[address] Jose Alejandro Hardin MD) CORAZON (acute kidney injury) (Acute) Anemia (Acute) 1. CORAZON - FeUrea c/w intrinsic renal 66.2%. Hold HCTZ, Lisinopril, NSAIDS. Urine output is good but renal function minimal change on BMP. -Renal US normal. -CT abdomen normal. Nephro consulted. -Rheumatoid panel pending. -Repeat ESR/CRP. -Mild WBC elevation, recent fever. -Check blood cultures. No fever. Leukocytosis resolved. -Total CK normal. 2. Normocytic anemia - negative hemoccult. LDH neg. Iron studies normal. Folate / b12 normal. 3. HTN - off home meds, mildly elevated. prn hydralazine. 4. Recent ACL repair - records request sent to [facility] 5. Morbid obesity - glove tagger consult DVT ppx: SCDs This patient was seen by Valentín Johansen PA-C under the supervision of Dr. Hi <Jen Hish - Last Filed: 04/29/20 15:25> Reason for Visit: Follow-up for acute kidney injury Objective: Patient has history of ACL injury and surgery about 3 to 4 weeks ago and had high fever. She had clindamycin perioperative but no antibiotic. She is also been taking NSAIDs, lisinopril and HCTZ. She has history of hypertension for 2 to 3 years and BP is controlled. Denies diabetes. Her father had CKD stage IV but did not require dialysis later on diet. The patient has good urine output, 1650 mL today since midnight. Physical exam General: Alert, Oriented x3, Cooperative, morbid obesity BMI 40 kg/m?. HEENT: Atraumatic, PERRLA, EOMI, Normocephalic Oral: No Gingival or Mucosal Lesions/ Ulcerations Neck: Supple, No JVD, Negative Carotid Bruits Lungs: Air entry diminished in bilateral lung bases. No crepitation/rhonchi Cardiovascular: Regular rate, Regular Rhythm, Normal S1, Normal S2, No murmurs Abdomen: Bowel Sounds Present, Soft, Non Tender, Non-Distended : No renal angle tenderness. No suprapubic tenderness. Extremities: No edema, Capillary Refill Less than 3 Seconds Skin: No rashes, No breakdown Musculoskeletal: No Tenderness to Palpation of Joints or Extremities Neurological: Cranial nerves II-XII grossly intact, Deep Tendon Reflexes 2+/4 and Symmetrical, Neuro grossly intact Psych/Mental Status: Normal Affect, Appropriate. Vitals/I&O's: Vital Signs Temp Pulse Resp BP Pulse Ox 97.9 F 87 16 151/93 H 98 04/29/20 08:54 04/29/20 14:47 04/29/20 08:54 04/29/20 08:54 04/29/20 09:45 Oxygen Delivery Method Room Air Weight: 232 lb 12.93 oz Body Mass Index (BMI) 39.9 Intake and Output for Last 24 Hours 04/27/20 04/28/20 04/29/20 23:59 23:59 23:59 Intake Total 1465 / 1465 1886.67 / 1886.67 Output Total 1650 / 1650 Balance 1465 / 1465 236.67 / 236.67 Microbiology Past 72 Hours 04/28/20 19:20 Stool Stool Occult Blood (LAURA) - Final Laboratory Results 04/28/20 18:20: Urine Color Straw, Urine Clarity Clear, Urine pH 6.5, Ur Specific Am[place] 1.010, Urine Protein 30 H, Urine Glucose (UA) 100 H, Urine Ketones Negative, Urine Occult Blood 25 H, Urine Nitrite Negative, Urine Bilirubin Negative, Urine Urobilinogen Normal, Ur Leukocyte Esterase Negative, Urine RBC 0-5 SEEN, Urine WBC 0-5 SEEN, Ur Squamous Epith Cells 0-5 SEEN, Urine Bacteria 1+, Urine Mucus 0 SEEN 04/28/20 18:20: Urine Creatinine 71.00 04/28/20 18:20: Urine Urea Nitrogen 396 04/28/20 18:20: Ur Random Sodium 34 04/28/20 18:22: WBC 11.2 H, RBC 3.27 L, Hgb 9.6 L, Hct 28.9 L, MCV 88.4, MCH 29.4, MCHC 33.2, RDW Std Deviation 40.2, RDW Coeff of Daya 12.5, Plt Count 363, MPV 9.3, Immature Gran % (Auto) 0.400, Neut % (Auto) 81.0 H, Lymph % (Auto) 10.3 L, [place] % (Auto) 6.2, Eos % (Auto) 1.7, Baso % (Auto) 0.4, Absolute Neuts (auto) 9.1 H, Absolute Lymphs (auto) 1.16, Nucleated RBC % 0 04/28/20 18:22: Sodium 134 L, Potassium 3.4 L, Chloride 103, Carbon Dioxide 24.0, Anion Gap 7, BUN 68 H, Creatinine 8.07 H*, Estim Creat Clear Calc 7.76, Est GFR (MDRD) Af Amer 7 L, Est GFR (MDRD) Non-Af 6 L, BUN/Creatinine Ratio 8.4 L, Glucose 93, Calcium 9.4, Total Bilirubin 0.20, AST 5 L, ALT 15, Alkaline Phosphatase 100, Total Protein 9.1 H, Albumin 3.5, Globulin 5.6 H, Albumin/Globulin Ratio 0.6 L, Lipase 203 04/28/20 18:22: Iron 73, TIBC 317, Iron Saturation 23.0, Ferritin 510 H, Lactate Dehydrogenase 178, Folate 12.30 04/28/20 18:22: Haptoglobin Pending 04/28/20 18:22: Retic Count 1.06, Immature Retic Fraction 4.20, Retic Hgb Equivalent 32.9 04/28/20 18:22: Vitamin B12 591 04/29/20 06:40: WBC 8.3, RBC 3.19 L, Hgb 9.2 L, Hct 28.4 L, MCV 89.0, MCH 28.8, MCHC 32.4, RDW Std Deviation 41.3, RDW Coeff of Daya 12.6, Plt Count 305, MPV 9.6, Immature Gran % (Auto) 0.200, Neut % (Auto) 75.4 H, Lymph % (Auto) 13.9 L, [place] % (Auto) 7.8, Eos % (Auto) 2.3, Baso % (Auto) 0.4, Absolute Neuts (auto) 6.3, Absolute Lymphs (auto) 1.16, Nucleated RBC % 0 04/29/20 06:40: Sodium 138, Potassium 4.2, Chloride 109 H, Carbon Dioxide 22.0, Anion Gap 7, BUN 62 H, Creatinine 7.71 H*, Estim Creat Clear Calc 8.12, Est GFR (MDRD) Af Amer 7 L, Est GFR (MDRD) Non-Af 6 L, BUN/Creatinine Ratio 8.0 L, Glucose 84, Calcium 8.7 04/29/20 06:40: Total Creatine Kinase 64 04/29/20 06:40: ESR Pending 04/29/20 06:40: C-React Prot Ext Range 30.50 H 04/29/20 13:15: SWEETIE Screen Pending, KIMBERLY-1 Antibody Pending, SS-A/Ro IgG Antibody Pending, SS-B/La IgG Antibody Pending, Sm (Do) Antibody Pending, PARKING ENFORCEMENT SPECIALIST Antibody Pending, Scl-70 Scleroderma Ab Pending, Double Strand DNA Ab Pending, Centromere B Antibody Pending 04/29/20 13:15: c-ANCA Antibody Pending, p-ANCA Antibody Pending, Glomerular Base Memb Ab Pending 04/29/20 13:15: RPR Pending 04/29/20 13:15: IgG Pending, IgA Pending, IgM Pending, Serum Cryoglobulins Pending, Complement C3 Pending, Complement C4 Pending Current Medications Acetaminophen (Acetaminophen 325 Mg Tablet) 650 mg PO Q6H PRN PRN PRN Reason: Pain Score 1-10/Temp > 100.7 F Last Admin: 04/29/20 10:43 Dose: 650 mg Documented by: Albuterol Sulfate (Albuterol 2.5 Mg/3 Ml Vial.Neb.) 2.5 mg INHALATION Q2H PRN PRN PRN Reason: SOB/WHEEZING Dicyclomine HCl (Dicyclomine 10 Mg Capsule) 10 mg PO ACHS [facility] Last Admin: 04/29/20 10:44 Dose: 10 mg Documented by: Hydralazine HCl (Hydralazine 25 Mg Tablet) 25 mg PO TID [facility] Last Admin: 04/29/20 14:47 Dose: 25 mg Documented by: Sodium Chloride () 1,000 mls @ 100 mls/hr IV .Q10H [facility] Last Admin: 04/29/20 14:49 Dose: 100 mls/hr Documented by: Melatonin (Melatonin 3 Mg Tablet) 3 mg PO QHS PRN PRN PRN Reason: INSOMNIA Ondansetron HCl (Ondansetron 4 Mg/2 Ml Vial) 4 mg IV Q6H PRN PRN PRN Reason: NAUSEA/VOMITING Last Admin: 04/29/20 00:03 Dose: 4 mg Documented by: Pantoprazole Sodium (Pantoprazole Sodium 40 Mg Tablet) 40 mg PO BID [facility] Last Admin: 04/29/20 09:15 Dose: 40 mg Documented by: Pregabalin (Pregabalin 50 Mg Capsule) 50 mg PO DAILY [facility] Last Admin: 04/29/20 09:15 Dose: Not Given Documented by: Sodium Chloride (0.9% Saline Lock 10 Ml Syringe) 10 - 40 ml IV UD PRN PRN Reason: SALINE FLUSH STROKE Vital Signs/Narrative: Vital Signs Pulse 04/29/20 14:47 87 Assessment/Plan This patient was seen in conjunction with Valentín CRAIG. I have independently i nterviewed and examined the patient and reviewed pertinent history, examination findings, laboratory and plan of management. I have reviewed the note and agree with the documented findings with the few additional points. In brief, patient is 44-year-old female with no prior kidney disease but hypertension was admitted with mild abdominal cramping's and nausea generalized weakness and abnormal lab work. Patient outside lab work shows sed rate 103, elevated BUN and creatinine and anemia. The patient was further admitted on [facility]. Seen by account development associate. Diagnosis: CORAZON, nonoliguric probably ATN from NSAIDs/possible recent infection: K4.2. CO2 22, anion gap 7. BUN/creatinine 62/7.71. CT abdomen normal. CRP 30, CK 64. ESR pending. Discussed with the account development associate and he ordered autoantibodies, complement level, cryoglobulins, haptoglobin and immunofixation. He advised blood culture, 2D echo, urine culture and ordered. Urine sediment is bland. Normocytic normochromic chronic anemia. Other comorbidities include hypertension, recent ACL repair and morbid obesity, chronic lumbar degenerative disorder and pelvic pain I have discussed my assessment with Valentín CRAIG and orders have been reviewed. Inpatient E&M: 68137 Subs Hosp L2
--- NOTE | 2020-04-29 14:00 | CHAPLAIN ---
Type of Pastoral Visit _x__ Initial Visit ___ Follow-up Visit ___ On-call Visit ___ General Patient Visit ___ Spiritual Assessment ___ Family Conference ___ Bereavement ___ Rapid Response ___ Code Blue ___ Other (describe below) Pastoral Care Referral From _x__ Patient ___ Family ___ Nurse ___ Physician ___ Health Support Specialist ___ Moulder Operator ___ Other (describe below) Sacrament/Intervention _x__ Active listening ___ Anointing ___ Muslim ___ Bereavement ___ Communion ___ Celine exploration ___ ___ Life review _x__ Prayer ___ Reconciliation ___ Sacrament of Sick _x__ Supportive presence ___ Wedding ___ Other (describe below) Pastoral Comments
[2020-04-29] MEDS: hydrALAZINE 25 MG Tablet PO ×2 (14:47→21:00)
[2020-04-29 18:13] LABS: Erythrocyte Sedimentation Rate 61 mm/hr (0-20)
[2020-04-29] MEDS: MELATONIN 3 MG TABLET PO (20:58)
[2020-04-30] VITALS (9 sets, daily range): BP systolic 102–121; BP diastolic 60–84; PULSE 83–92; RESP 16–18; TEMP 36.8–37.1; O2SAT 96–100
[2020-04-30] MEDS: Ondansetron 4 MG/2 ML Vial IV (00:37)
[2020-04-30] MEDS: 0.9% Saline Lock 10 ML Syringe IV ×2 (00:37→23:11)
[2020-04-30] MEDS: 0.9% Normal Saline 1,000 ML 100 ML IV ×3 (02:02→23:19)
[2020-04-30 02:17] LABS: Rapid Plasmin Reagin (RPR) NONREACTIVE (NONREACTIVE)
[2020-04-30] MEDS: Dicyclomine 10 MG Capsule PO ×4 (05:54→23:00)
[2020-04-30 07:40] LABS: Absolute Lymphocyte Count 0.95 X10^3/uL (0.83-4.51); Absolute Neutrophil Count 6.3 X10^3/uL (2.0-7.7); Basophil# 0.05 X10^3/uL; Basophil% 0.6 % (0-1); Eosinophil# 0.18 X10^3/uL; Eosinophils% 2.2 % (0-5); Hematocrit 25.6 % (37-47); Hemoglobin 8.2 g/dL (12.0-15.0); Lymphocyte # 0.95 X10^3/ul (4.0); Lymphocyte % 11.7 % (19-41); Mean Corpuscular Volume 90.5 fL (81-99); Mean Platelet Vol. 9.7 fl (6.2-12.0); Monocyte# 0.58 X10^3/uL; Monocyte% 7.1 % (0-10); NRBC Flagged by Analyzer 0 % (0-5); Neutrophil # 6.34 X10^3/uL (2.7-7.7); Neutrophil % 78.2 % (47-70); Platelet Count 274 K/mm3 (150-450); RBC Distribution Width CV 12.8 % (11.6-14.6); RBC Distribution Width SD 42.4 fl (35.1-43.9); Red Blood Count 2.83 M/mm3 (4.2-5.4); White Blood Count 8.1 K/mm3 (4.4-11.0)
[2020-04-30 08:08] LABS: Anion Gap 6 (5-15); BUN 53 mg/dL (7-18); BUN/Creat Ratio 7.6 RATIO (10-20); Calcium,Total 8.5 mg/dL (8.5-10.1); Chloride 111 mmol/L (98-107); Creatinine, Serum 6.95 mg/dL (0.55-1.02); EST Glomerular Filtration Rate 7 mL/min (>60); Est Glom Filt Rate - Afr Amer 8 mL/min (>60); Estimated Creatinine Clearance 9.01 ml/min; Glucose 88 mg/dL (74-106); Potassium 4.2 mmol/L (3.5-5.1); Sodium Level 137 mmol/L (136-145)
[2020-04-30] MEDS: Pantoprazole Sodium 40 MG Tablet PO (08:49)
[2020-04-30] MEDS: Acetaminophen 325 MG Tablet 650 MG PO ×2 (08:49→23:17)
--- NOTE | 2020-04-30 10:02 | PCA ---
SENT MEDICAL RECORD REQUEST TO [facility] FOR DOCTOR MENDENHALL FOR REPORTS FOR SYNOVIAL FLUID REPORTS . HAVE NOT RECEIVED ANYTHING AT THIS TIME
--- NOTE | 2020-04-30 11:18 | PN_ITS ---
<Jeanette Corona INNERSOLE FITTER - Last Filed: 04/30/20 11:27> Patient Problems: Active and Suspected Problems (Last Reviewed 04/28/20 @ 21:[address] Jose Alejandro dixon MD) CORAZON (acute kidney injury) (Acute) Anemia (Acute) Subjective: Patient seen and examined. Reports generalized pain. Denies fever, chills. Denies other current symptoms or complaints. Patient reports a family history of thrombocytopenia purpura and hemochromatosis, asking if either of these could be related to current diagnosis. States she has not been tested for them herself. - Physical Exam Vitals/I&O's: Vital Signs Temp Pulse Resp BP Pulse Ox 98.2 F 86 16 117/84 H 100 04/30/20 08:35 04/30/20 08:35 04/30/20 08:35 04/30/20 08:35 04/30/20 08:35 Oxygen Delivery Method Room Air Weight: 232 lb 12.93 oz Body Mass Index (BMI) 39.9 Intake and Output for Last 24 Hours 04/28/20 04/29/20 04/30/20 23:59 23:59 23:59 Intake Total 1465 / 1465 1886.67 / 1886.67 1000 / 1000 Output Total 1650 / 2850 1200 / 1200 Balance 1465 / 1465 236.67 / -963.33 -200 / -200 General: Alert, Oriented x3, Cooperative HEENT: Atraumatic, PERRLA, EOMI, Normocephalic Neck: Supple, No JVD, Negative Carotid Bruits Lungs: Clear to auscultation, Normal air movement Cardiovascular: Regular rate, No murmurs Abdomen: Bowel Sounds Present, Soft, Non Tender Extremities: No clubbing, No cyanosis, No edema, Capillary Refill Less than 3 Seconds Skin: No rashes, No breakdown Musculoskeletal: No Tenderness to Palpation of Joints or Extremities Neurological: Cranial nerves II-XII grossly intact, Neuro grossly intact Psych/Mental Status: Normal Affect, Appropriate Microbiology Past 72 Hours 04/28/20 19:20 Stool Stool Occult Blood (LAURA) - Final Laboratory Results 04/29/20 06:40: ESR 61 H 04/29/20 06:40: C-React Prot Ext Range 30.50 H 04/29/20 13:15: SWEETIE Screen Pending, KIMBERLY-1 Antibody Pending, SS-A/Ro IgG Antibody Pending, SS-B/La IgG Antibody Pending, Sm (Do) Antibody Pending, QUALITY ASSURANCE QA LAB ANALYST Antibody Pending, Scl-70 Scleroderma Ab Pending, Double Strand DNA Ab Pending, Centromere B Antibody Pending 04/29/20 13:15: c-ANCA Antibody Pending, p-ANCA Antibody Pending, Glomerular Base Memb Ab Pending 04/29/20 13:15: RPR NONREACTIVE 04/29/20 13:15: IgG Pending, IgA Pending, IgM Pending, Serum Cryoglobulins Pending, Complement C3 Pending, Complement C4 Pending 04/30/20 07:10: WBC 8.1, RBC 2.83 L, Hgb 8.2 L, Hct 25.6 L, MCV 90.5, MCH 29.0, MCHC 32.0, RDW Std Deviation 42.4, RDW Coeff of Daya 12.8, Plt Count 274, MPV 9.7, Immature Gran % (Auto) 0.200, Neut % (Auto) 78.2 H, Lymph % (Auto) 11.7 L, [place] % (Auto) 7.1, Eos % (Auto) 2.2, Baso % (Auto) 0.6, Absolute Neuts (auto) 6.3, Absolute Lymphs (auto) 0.95, Nucleated RBC % 0 04/30/20 07:10: Sodium 137, Potassium 4.2, Chloride 111 H, Carbon Dioxide 20.0 L , Anion Gap 6, BUN 53 H, Creatinine 6.95 H, Estim Creat Clear Calc 9.01, Est GFR (MDRD) Af Amer 8 L, Est GFR (MDRD) Non-Af 7 L, BUN/Creatinine Ratio 7.6 L, Glucose 88, Calcium 8.5 Current Medications Acetaminophen (Acetaminophen 325 Mg Tablet) 650 mg PO Q6H PRN PRN PRN Reason: Pain Score 1-10/Temp > 100.7 F Last Admin: 04/30/20 08:49 Dose: 650 mg Documented by: Albuterol Sulfate (Albuterol 2.5 Mg/3 Ml Vial.Neb.) 2.5 mg INHALATION Q2H PRN PRN PRN Reason: SOB/WHEEZING Dicyclomine HCl (Dicyclomine 10 Mg Capsule) 10 mg PO ACHS [facility]UD[facility] Last Admin: 04/30/20 05:54 Dose: 10 mg Documented by: Hydralazine HCl (Hydralazine 25 Mg Tablet) 25 mg PO TID [facility] Last Admin: 04/30/20 05:53 Dose: Not Given Documented by: Sodium Chloride () 1,000 mls @ 100 mls/hr IV .Q10H [facility] Last Admin: 04/30/20 02:02 Dose: 100 mls/hr Documented by: Melatonin (Melatonin 3 Mg Tablet) 3 mg PO QHS PRN PRN PRN Reason: INSOMNIA Last Admin: 04/29/20 20:58 Dose: 3 mg Documented by: Ondansetron HCl (Ondansetron 4 Mg/2 Ml Vial) 4 mg IV Q6H PRN PRN PRN Reason: NAUSEA/VOMITING Last Admin: 04/30/20 00:37 Dose: 4 mg Documented by: Pantoprazole Sodium (Pantoprazole Sodium 40 Mg Tablet) 40 mg PO BID [facility] Last Admin: 04/30/20 08:49 Dose: 40 mg Documented by: Pregabalin (Pregabalin 50 Mg Capsule) 50 mg PO DAILY [facility] Last Admin: 04/30/20 08:36 Dose: Not Given Documented by: Sodium Chloride (0.9% Saline Lock 10 Ml Syringe) 10 - 40 ml IV UD PRN PRN Reason: SALINE FLUSH Last Admin: 04/30/20 00:37 Dose: 10 ml Documented by: Medical Necessity - Tobacco Use Smoking Status: Former smoker Assessment/Plan All Active Problems (Last Reviewed 04/28/20 @ 21:[address] Jose Alejandro Hardin MD) CORAZON (acute kidney injury) (Acute) Anemia (Acute) 1. Acute kidney injury-nephrology consulted. Renal ultrasound unremarkable. CT of abdomen normal. Blood and urine cultures pending-patient reports recent fever. HCTZ/lisinopril/NSAIDs on hold. Immunology labs pending. RPR nonreactive. Continue IV fluids. Trend BMP. 2. Normocytic anemia-appears significantly reduced from prior baseline labs. Iron/B12/folate normal. Stool negative for occult blood. Continue twice daily PPI. Trend CBC. 3. Hypertension-stable. Home hydrochlorothiazide/lisinopril on hold. 4. Recent ACL tear s/p repair 03/31/2020 5. Morbid obesity-encouraged diet and lifestyle modifications. DVT prophylaxis-SCDs This patient was seen by FERNANDO Guadalupe under the supervision of Dr. Hi. <KoltonJenJose Miguel - Last Filed: 04/30/20 14:16> Objective: Seen and examined. Patient has history of ACL repair on the left leg. She had revision of the ACL surgery as the left over the screw was causing persistent pain about 5 weeks ago. Patient synovial fluid was negative. She states he had taken NSAID in the immediate postop period during during surgery but not on persistent chronic pain medication. Heart rate and blood pressure is in normal range Physical exam General: Alert, Oriented x3, Cooperative HEENT: Atraumatic, PERRLA, EOMI, Normocephalic Oral: No Gingival or Mucosal Lesions/ Ulcerations Neck: Supple, No JVD, Negative Carotid Bruits Lungs: Air entry diminished in bilateral lung bases. No crepitation/rhonchi Cardiovascular: Regular rate, Regular Rhythm, Normal S1, Normal S2, No murmurs Abdomen: Bowel Sounds Present, Soft, Non Tender, Non-Distended : No renal angle tenderness. No suprapubic tenderness. Extremities: There is arthroscopic scar on the left knee. Mild tenderness on movement varus and valgus movement of left knee. No edema, Capillary Refill Less than 3 Seconds Skin: No rashes, No breakdown Musculoskeletal: No Tenderness to Palpation of Joints or Extremities Neurological: Cranial nerves II-XII grossly intact, Deep Tendon Reflexes 2+/4 and Symmetrical, Neuro grossly intact Psych/Mental Status: Normal Affect, Appropriate. - Physical Exam Vitals/I&O's: Vital Signs Temp Pulse Resp BP Pulse Ox 98.2 F 86 16 117/84 H 100 04/30/20 08:35 04/30/20 08:35 04/30/20 08:35 04/30/20 08:35 04/30/20 08:35 Oxygen Delivery Method Room Air Weight: 232 lb 12.93 oz Body Mass Index (BMI) 39.9 Intake and Output for Last 24 Hours 04/28/20 04/29/20 04/30/20 23:59 23:59 23:59 Intake Total 1465 / 1465 1886.67 / 1886.67 1999 / 1999 Output Total 1650 / 2850 1200 / 1200 Balance 1465 / 1465 236.67 / -963.33 800 / 800 Microbiology Past 72 Hours 04/28/20 19:20 Stool Stool Occult Blood (LAURA) - Final Laboratory Results 04/29/20 06:40: ESR 61 H 04/29/20 13:15: RPR NONREACTIVE 04/30/20 07:10: WBC 8.1, RBC 2.83 L, Hgb 8.2 L, Hct 25.6 L, MCV 90.5, MCH 29.0, MCHC 32.0, RDW Std Deviation 42.4, RDW Coeff of Daya 12.8, Plt Count 274, MPV 9.7, Immature Gran % (Auto) 0.200, Neut % (Auto) 78.2 H, Lymph % (Auto) 11.7 L, [place] % (Auto) 7.1, Eos % (Auto) 2.2, Baso % (Auto) 0.6, Absolute Neuts (auto) 6.3, Absolute Lymphs (auto) 0.95, Nucleated RBC % 0 04/30/20 07:10: Sodium 137, Potassium 4.2, Chloride 111 H, Carbon Dioxide 20.0 L , Anion Gap 6, BUN 53 H, Creatinine 6.95 H, Estim Creat Clear Calc 9.01, Est GFR (MDRD) Af Amer 8 L, Est GFR (MDRD) Non-Af 7 L, BUN/Creatinine Ratio 7.6 L, Glucose 88, Calcium 8.5 Current Medications Acetaminophen (Acetaminophen 325 Mg Tablet) 650 mg PO Q6H PRN PRN PRN Reason: Pain Score 1-10/Temp > 100.7 F Last Admin: 04/30/20 08:49 Dose: 650 mg Documented by: Albuterol Sulfate (Albuterol 2.5 Mg/3 Ml Vial.Neb.) 2.5 mg INHALATION Q2H PRN PRN PRN Reason: SOB/WHEEZING Dicyclomine HCl (Dicyclomine 10 Mg Capsule) 10 mg PO ACHS [facility] Last Admin: 04/30/20 11:40 Dose: 10 mg Documented by: Hydralazine HCl (Hydralazine 25 Mg Tablet) 25 mg PO TID [facility] Last Admin: 04/30/20 05:53 Dose: Not Given Documented by: Sodium Chloride () 1,000 mls @ 100 mls/hr IV .Q10H [facility] Last Admin: 04/30/20 12:41 Dose: 100 mls/hr Documented by: Pantoprazole Sodium 40 mg/ (Sodium Chloride) 110 mls @ 330 mls/hr IV Q12 [facility] Melatonin (Melatonin 3 Mg Tablet) 3 mg PO QHS PRN PRN PRN Reason: INSOMNIA Last Admin: 04/29/20 20:58 Dose: 3 mg Documented by: Ondansetron HCl (Ondansetron 4 Mg/2 Ml Vial) 4 mg IV Q6H PRN PRN PRN Reason: NAUSEA/VOMITING Last Admin: 04/30/20 00:37 Dose: 4 mg Documented by: Pregabalin (Pregabalin 50 Mg Capsule) 50 mg PO DAILY [facility] Last Admin: 04/30/20 08:36 Dose: Not Given Documented by: Sodium Chloride (0.9% Saline Lock 10 Ml Syringe) 10 - 40 ml IV UD PRN PRN Reason: SALINE FLUSH Last Admin: 04/30/20 00:37 Dose: 10 ml Documented by: Assessment/Plan This patient was seen in conjunction with Jeanette UNDERWOOD. I have independently interviewed and examined the patient and reviewed pertinent history, examination findings, laboratory and plan of management. I have reviewed the note and agree with the documented findings with the few additional points. In brief, patient is 44-year-old female with no prior kidney disease but hypertension was admitted with mild abdominal cramping's and nausea generalized weakness and abnormal lab work. Patient outside lab work shows sed rate 103, elevated BUN and creatinine and anemia. [facility] Seen by production engineer track. Diagnosis: CORAZON, nonoliguric probably ATN from NSAIDs/possible recent infection, although exact etiology unclear: Patient potassium, anion gap in normal limit. BUN/creatinine is gradually improving. Bicarb 20. CT abdomen normal. CRP 30, CK 64. ESR 61. Renal ultrasound reported normal. Renal artery duplex less than 60% stenosis bilateral renal artery. Discussed with the production engineer track and he ordered autoantibodies, complement level, cryoglobulins, haptoglobin and immunofixation. Urine sediment is bland. 2D echo is reported normal EF 60%. Urine and blood cultures x2 are pending. Normocytic normochromic chronic anemia. Other comorbidities include hypertension, recent ACL repair and morbid obesity, chronic lumbar degenerative disorder and pelvic pain I have discussed my assessment with Jeanette UNDERWOOD and orders have been reviewed. Clinical Impression(s) from Imaging Studies Abdomen/Pelvis CT 04/28/20 18:17 IMPRESSION: No definite acute or significant abnormality seen. Renal Ultrasound 04/29/20 09:39 IMPRESSION: Normal ultrasound of the kidneys and urinary bladder. Inpatient E&M: [id number] [facility] Hosp L2
--- NOTE | 2020-04-30 13:12 | PCM.PN.REN ---
Patient Problems: Active and Suspected Problems (Last Reviewed 04/28/20 @ 21:[address] Jose Alejandro Hardin MD) CORAZON (acute kidney injury) (Acute) Anemia (Acute) Subjective: The patient states nausea is slightly better no vomiting no diarrhea no shortness of breath no chest pain. - Physical Exam Vitals/I&O's: Vital Signs Temp Pulse Resp BP Pulse Ox 98.2 F 86 16 117/84 H 100 04/30/20 08:35 04/30/20 08:35 04/30/20 08:35 04/30/20 08:35 04/30/20 08:35 Oxygen Delivery Method Room Air Weight: 105.6 kg Body Mass Index (BMI) 39.9 Intake and Output for Last 24 Hours 04/28/20 04/29/20 04/30/20 23:59 23:59 23:59 Intake Total 1465 / 1465 1886.67 / 1886.67 1999 / 1999 Output Total 1650 / 2850 1200 / 1200 Balance 1465 / 1465 236.67 / -963.33 800 / 800 General: Alert, Cooperative HEENT: Atraumatic, Normocephalic Neck: Supple, Trachea Midline Lungs: Clear to auscultation, Normal air movement Cardiovascular: Regular rate, Regular Rhythm, Normal S1, Normal S2 Abdomen: Bowel Sounds Present, Soft, Obese Skin: No rashes Neurological: Cranial nerves II-XII grossly intact Microbiology Past 72 Hours 04/28/20 19:20 Stool Stool Occult Blood (LAURA) - Final Laboratory Results 04/29/20 06:40: ESR 61 H 04/29/20 06:40: C-React Prot Ext Range 30.50 H 04/29/20 13:15: SWEETIE Screen Pending, KIMBERLY-1 Antibody Pending, SS-A/Ro IgG Antibody Pending, SS-B/La IgG Antibody Pending, Sm (Do) Antibody Pending, COLD STRIP ROLLER Antibody Pending, Scl-70 Scleroderma Ab Pending, Double Strand DNA Ab Pending, Centromere B Antibody Pending 04/29/20 13:15: c-ANCA Antibody Pending, p-ANCA Antibody Pending, Glomerular Base Memb Ab Pending 04/29/20 13:15: RPR NONREACTIVE 04/29/20 13:15: IgG Pending, IgA Pending, IgM Pending, Serum Cryoglobulins Pending, Complement C3 Pending, Complement C4 Pending 04/30/20 07:10: WBC 8.1, RBC 2.83 L, Hgb 8.2 L, Hct 25.6 L, MCV 90.5, MCH 29.0, MCHC 32.0, RDW Std Deviation 42.4, RDW Coeff of Daya 12.8, Plt Count 274, MPV 9.7, Immature Gran % (Auto) 0.200, Neut % (Auto) 78.2 H, Lymph % (Auto) 11.7 L, Sebastian % (Auto) 7.1, Eos % (Auto) 2.2, Baso % (Auto) 0.6, Absolute Neuts (auto) 6.3, Absolute Lymphs (auto) 0.95, Nucleated RBC % 0 04/30/20 07:10: Sodium 137, Potassium 4.2, Chloride 111 H, Carbon Dioxide 20.0 L, Anion Gap 6, BUN 53 H, Creatinine 6.95 H, Estim Creat Clear Calc 9.01, Est GFR (MDRD) Af Amer 8 L, Est GFR (MDRD) Non-Af 7 L, BUN/Creatinine Ratio 7.6 L, Glucose 88, Calcium 8.5 Current Medications Acetaminophen (Acetaminophen 325 Mg Tablet) 650 mg PO Q6H PRN PRN PRN Reason: Pain Score 1-10/Temp > 100.7 F Last Admin: 04/30/20 08:49 Dose: 650 mg Documented by: Albuterol Sulfate (Albuterol 2.5 Mg/3 Ml Vial.Neb.) 2.5 mg INHALATION Q2H PRN PRN PRN Reason: SOB/WHEEZING Dicyclomine HCl (Dicyclomine 10 Mg Capsule) 10 mg PO ACHS [facility] Last Admin: 04/30/20 11:40 Dose: 10 mg Documented by: Hydralazine HCl (Hydralazine 25 Mg Tablet) 25 mg PO TID [facility] Last Admin: 04/30/20 05:53 Dose: Not Given Documented by: Sodium Chloride () 1,000 mls @ 100 mls/hr IV .Q10H [facility] Last Admin: 04/30/20 12:41 Dose: 100 mls/hr Documented by: Pantoprazole Sodium 40 mg/ (Sodium Chloride) 110 mls @ 330 mls/hr IV Q12 [facility] Melatonin (Melatonin 3 Mg Tablet) 3 mg PO QHS PRN PRN PRN Reason: INSOMNIA Last Admin: 04/29/20 20:58 Dose: 3 mg Documented by: Ondansetron HCl (Ondansetron 4 Mg/2 Ml Vial) 4 mg IV Q6H PRN PRN PRN Reason: NAUSEA/VOMITING Last Admin: 04/30/20 00:37 Dose: 4 mg Documented by: Pregabalin (Pregabalin 50 Mg Capsule) 50 mg PO DAILY [facility] Last Admin: 04/30/20 08:36 Dose: Not Given Documented by: Sodium Chloride (0.9% Saline Lock 10 Ml Syringe) 10 - 40 ml IV UD PRN PRN Reason: SALINE FLUSH Last Admin: 04/30/20 00:37 Dose: 10 ml Documented by: Medical Necessity - Tobacco Use Smoking Status: Former smoker Assessment/Plan All Active Problems (Last Reviewed 04/28/20 @ 21:[address] Jose Alejandro Hardin MD) CORAZON (acute kidney injury) (Acute) Anemia (Acute) CORAZON r/o RPGN HTN Scr 6.9 from 8 improving f/u serologies 24 hour urine collection Renal ultrasound normal Doppler renal arteries normal. RPR negative. All other serologies are pending. Avoid nephrotoxins Blood pressure acceptable continue current medications f/u blood cultures d/w patient
[2020-04-30 15:57] LABS: 24 Hour Urine Protein 1040.3 mg/24HR (<150 MG/24HR); 24HR. UA Prot. Total Volume 2575 mL; 24HR. Urine Creatinine 0.84 g/24 HR (0.70-1.90); Urine Protein (24 Hour) 40.4 mg/dL (<11.9)
[2020-04-30 16:16] LABS: Haptoglobin 258 mg/dL (42-296)
[2020-04-30 20:08] LABS: ANTINUCLEAR ANTIBODIES DIRECT Positive (Negative); Anti-Centromere B Ab <0.2 AI (0.0-0.9); Anti-Jo <0.2 AI (0.0-0.9); Anti-Scleroderma-70 AB <0.2 AI (0.0-0.9); RNP Ab 0.3 AI (0.0-0.9); SJOGREN'S Anti-SS-A test > 8.0 AI (0.0-0.9); SJOGREN'S Anti-SS-B test 1.2 AI (0.0-0.9); Smith Ab <0.2 AI (0.0-0.9)
[2020-04-30 22:20] LABS: Anti-dsDNA Ab 1 IU/mL (0-9)
[2020-05-01] VITALS (17 sets, daily range): BP systolic 102–152; BP diastolic 61–98; PULSE 79–106; RESP 14–24; TEMP 36.4–36.8; O2SAT 98–100
--- NOTE | 2020-05-01 | KI_PTH ---
PATIENT: MADIHA ORDOÑEZ LOC: MS3 U#:[id number] AGE/SX: 44/F ROOM: MS311 RE04/28/[address]: Dr. Minoo Lawrence MD : 1975 BED: 1 DIS: 05/05/2020 SPEC #: [id number] RECD: 05/01/20 14:10 STATUS: JUVENCIO REAntoinette #: [id number] DENIA: 05/01/20 00:[address]: Bassem Santos DEPT: SURGICAL PATHOLOGY RECD BY: Nancy Figueroa ENTERED: 05/01/20 14:24 SP TYPE: KIDNEY BX OTHR DR: MD Dr. Jose Alejandro Camara III, MD Dr. Prakash Chand, MD Jessica Franklin, KJ-Adrian Tissues: Kidney, NOS Procedures: Electron Microscopy (ACH) Fluorescent Antibody (ACH) Sp St Grp II Kidney (ACH) Kidney Biopsy (ACH) Fluorescent antibody (ACH) add'l HEADER OPERATION: CT-guided renal biopsy PRE-OP DIAGNOSIS: Acute renal failure TISSUE SUBMITTED: Right kidney 18-gauge core x4 MICROSCOPIC DIAGNOSIS Kidney, right, renal biopsy: Acute/allergic interstitial nephritis, marked. COMMENT The findings are those of renal parenchyma with normal vasculature and normal glomeruli and with marked interstitial inflammatory infiltrate of small round lymphocytes with admixed eosinophils permeating the entire biopsy (cortex and medulla). No immune deposition disease is seen. No glomerular abnormalities are identified. No vascular lesions are seen. The presence of marked interstitial inflammatory infiltrate of lymphocytes and eosinophils best fits with acute/allergic interstitial nephritis, marked/severe in this case/patient. Clinical correlation and correlation with medication/drug history are essential. MICROSCOPIC DESCRIPTION LIGHT MICROSCOPY: Good biopsy specimen consisting of renal cortex and medulla and up to 19 glomeruli are portions of glomeruli for histologic evaluation. All glomeruli demonstrate normal mesangial matrix and cellularity, open capillary loops and no epithelial crescents or areas of collapse/sclerosis or necrosis. Intermediate sized vascular structures are otherwise unremarkable. Rare anterior hyalinosis, mild, is noted. The most striking changes are that of moderate to marked interstitial inflammatory infiltrate consisting of an equal admixture of eosinophils and small round (small round nucleus) lymphocytes. All areas of interstitium are involved with inflammatory infiltrate and multifocal tubulitis is seen. No suppurative acute inflammation is identified. No pyelonephritis is seen. Few degenerated tubular epithelial cells are noted in some tubular profiles. No marked acute tubular damage is seen, however. Dilated tubules contain small foci of blood and blood elements and rare large cast (protein casts). PAS stain highlights marked interstitial inflammatory infiltrate, normal vasculature and normal glomeruli. Few protein resorption droplets are identified within intact tubular epithelial cell cytoplasm. All glomeruli demonstrate open capillary loops without areas of necrosis or increased mesangial cellularity or matrix. Johnson (silver) stain demonstrates normal contour glomerular basement membranes without splits, spikes or irregular luminal outlines. No epithelial crescents are seen. Small round nucleus lymphocytic infiltrate with admixture of eosinophils permeates interstitium throughout the biopsy specimen. No double basement membranes are seen. Trichrome stain is negative for fuchsinophilic deposits within open glomeruli. No appreciable interstitial fibrosis is seen. The majority of the interstitium is occupied by edema with admixture of mixed inflammatory infiltrate consisting of lymphocytes and eosinophils, moderate to marked. Congo red stain is negative for vascular, glomerular and interstitial congophilia and is negative for birefringence and dichromatism by polarization microscopy. IMMUNOFLUORESCENCE: Tissue submitted for immunofluorescence microscopy demonstrates renal cortex and medulla and up to 5 glomeruli of portions of glomeruli for histologic evaluation. All glomeruli demonstrate normal mesangial matrix and cellularity and open capillary loops. IgG, IgA, IgM, c1q., kappa light chain, lambda light chain, fibrin and albumin are negative in glomeruli, tubules and vascular structures. C3 is negative in glomeruli and tubules but demonstrates 1+ positivity within the wall of some vascular structures. ELECTRON MICROSCOPY: Toluidine blue-stained sections (thick/skimmer reverberatory sections) reveal a single glomerulus with normal mesangial matrix and cellularity without areas of necrosis or crescent formation. Interstitium is edematous and demonstrates focal tubulitis with marked interstitial nephritis consisting of predominantly small round nucleus lymphocytes in the tissue section examined. Ultrastructure examination demonstrates normal glomerular basement membranes with normal thickness, uniform epithelial foot process formation and no discernible electron-dense deposits. Background interstitium is edematous and shows focal tubulitis with multifocal tubules identified with red blood cells within their lumens as well as interstitial edema with ectatic capillary spaces and with numerous/ predominantly small round lymphocytes within the interstitium. GROSS DESCRIPTION The specimen is sent entirely to [facility] for diagnosis. Received in transport medium labeled with the patient's name and kidney biopsy, right, the specimen consists of four cylindrical fragments of greenwood to greenwood-yellow renal parenchyma which are 0.4 x 0.1 x 0.1 to 1 x 0.1 x 0.1 cm in maximum dimension. Railroad Passenger Agent piece is submitted for immunofluorescence microscopy. Railroad Passenger Agent piece is submitted for microscopy. The remainder of the specimen is entirely submitted as A1 for permanent section:
[2020-05-01] MEDS: Dicyclomine 10 MG Capsule PO (05:12)
[2020-05-01] MEDS: Acetaminophen 325 MG Tablet 650 MG PO (05:19)
[2020-05-01 06:42] LABS: Anion Gap 7 (5-15); BUN 45 mg/dL (7-18); Calcium,Total 8.2 mg/dL (8.5-10.1); Chloride 113 mmol/L (98-107); Creatinine, Serum 6.44 mg/dL (0.55-1.02); EST Glomerular Filtration Rate 8 mL/min (>60); Est Glom Filt Rate - Afr Amer 9 mL/min (>60); Estimated Creatinine Clearance 9.73 ml/min; Glucose 92 mg/dL (74-106); Potassium 4.3 mmol/L (3.5-5.1); Sodium Level 140 mmol/L (136-145)
[2020-05-01 06:46] LABS: Hematocrit 25.6 % (37-47); Hemoglobin 8.3 g/dL (12.0-15.0); Mean Corp Hgb Conc 32.4 g/dL (32-36); Mean Corpuscular Volume 89.5 fL (81-99); Mean Platelet Vol. 9.7 fl (6.2-12.0); Platelet Count 288 K/mm3 (150-450); RBC Distribution Width CV 12.9 % (11.6-14.6); RBC Distribution Width SD 42.5 fl (35.1-43.9); Red Blood Count 2.86 M/mm3 (4.2-5.4); White Blood Count 8.3 K/mm3 (4.4-11.0)
[2020-05-01] MEDS: 0.9% Normal Saline 1,000 ML 100 ML IV ×2 (10:08→22:47)
--- NOTE | 2020-05-01 10:28 | NURSING ---
KJ DE LOS SANTOS MADE AWARE OF PT'S BPS THIS AM & PT NEED FOR PRN PAIN MEDICATION.
--- NOTE | 2020-05-01 11:58 | PCM.PN.REN ---
Patient Problems: Active and Suspected Problems (Last Reviewed 04/28/20 @ 21:[address] Jose Alejandro Hardin MD) CORAZON (acute kidney injury) (Acute) Anemia (Acute) Subjective: No shortness of breath no chest pain no vomiting no change in taste - Physical Exam Vitals/I&O's: Vital Signs Temp Pulse Resp BP Pulse Ox 98.3 F 81 14 140/94 H 98 05/01/20 10:05 05/01/20 10:05 05/01/20 10:05 05/01/20 10:05 05/01/20 10:05 Oxygen Delivery Method Room Air Weight: 105.6 kg Body Mass Index (BMI) 39.9 Intake and Output for Last 24 Hours 04/29/20 04/30/20 05/01/20 23:59 23:59 23:59 Intake Total 1886.67 / 1886.67 4483.33 / 4483.33 1660 / 1660 Output Total 1650 / 2850 4250 / 4250 Balance 236.67 / -963.33 233.33 / 233.33 1660 / 1660 General: Alert, Oriented x3, Cooperative HEENT: Atraumatic, EOMI, Normocephalic Oral: Moist Mucosa Neck: Supple, Trachea Midline Lungs: Clear to auscultation, Normal air movement Cardiovascular: Regular rate, Regular Rhythm, Normal S1, Normal S2 Abdomen: Bowel Sounds Present, Soft, Non Tender Extremities: No clubbing Microbiology Past 72 Hours 04/30/20 Unknown Urine, Clean Catch Urine Culture - Preliminary Culture exhibits no growth. 04/28/20 19:20 Stool Stool Occult Blood (LAURA) - Final Laboratory Results 04/28/20 18:22: Haptoglobin 258 04/29/20 13:15: SWEETIE Screen Positive H, KIMBERLY-1 Antibody <0.2, SS-A/Ro IgG Antibody > 8.0 H, SS-B/La IgG Antibody 1.2 H, Sm (Do) Antibody <0.2, LEARNING AND DEVELOPMENT ASSISTANT Antibody 0.3, Scl-70 Scleroderma Ab <0.2, Double Strand DNA Ab 1, Centromere B Antibody <0.2 04/30/20 14:00: Ur Total Protein 24 Hr Pending, Urine Total Protein Pending, Urine Albumin Pending, U Skusd-5-Nhzaxrhz Pending, U Ipldv-0-Cmlxbxuv Pending, U Beta Globulin Pending, U Gamma Globulin Pending 04/30/20 14:00: Urine Collection Time 24.0, Ur Collection Duration 24.0, Urine Total Volume 2.60, Timed Urine Volume 2575, Urine Creatinine 32.70, Ur Creatinine 24 Hour 0.84, Ur Total Protein 24 Hr 1040.3 H, Urine Total Protein 40.4 H 05/01/20 05:39: WBC 8.3, RBC 2.86 L, Hgb 8.3 L, Hct 25.6 L, MCV 89.5, MCH 29.0, MCHC 32.4, RDW Std Deviation 42.5, RDW Coeff of Daya 12.9, Plt Count 288, MPV 9.7 05/01/20 05:39: Sodium 140, Potassium 4.3, Chloride 113 H, Carbon Dioxide 20.0 L, Anion Gap 7, BUN 45 H, Creatinine 6.44 H, Estim Creat Clear Calc 9.73, Est GFR (MDRD) Af Amer 9 L, Est GFR (MDRD) Non-Af 8 L, BUN/Creatinine Ratio 7.0 L, Glucose 92, Calcium 8.2 L Current Medications Acetaminophen (Acetaminophen 325 Mg Tablet) 650 mg PO Q6H PRN PRN PRN Reason: Pain Score 1-10/Temp > 100.7 F Last Admin: 05/01/20 05:19 Dose: 650 mg Documented by: Albuterol Sulfate (Albuterol 2.5 Mg/3 Ml Vial.Neb.) 2.5 mg INHALATION Q2H PRN PRN PRN Reason: SOB/WHEEZING Dicyclomine HCl (Dicyclomine 10 Mg Capsule) 10 mg PO ACHS [facility] Last Admin: 05/01/20 05:12 Dose: 10 mg Documented by: Hydralazine HCl (Hydralazine 25 Mg Tablet) 25 mg PO TID [facility] Last Admin: 05/01/20 05:10 Dose: Not Given Documented by: Sodium Chloride () 1,000 mls @ 100 mls/hr IV .Q10H [facility] Last Admin: 05/01/20 10:08 Dose: 100 mls/hr Documented by: Pantoprazole Sodium 40 mg/ (Sodium Chloride) 110 mls @ 330 mls/hr IV Q12 [facility] Last Infusion: 05/01/20 10:29 Dose: Infused Documented by: Melatonin (Melatonin 3 Mg Tablet) 3 mg PO QHS PRN PRN PRN Reason: INSOMNIA Last Admin: 04/29/20 20:58 Dose: 3 mg Documented by: Ondansetron HCl (Ondansetron 4 Mg/2 Ml Vial) 4 mg IV Q6H PRN PRN PRN Reason: NAUSEA/VOMITING Last Admin: 04/30/20 00:37 Dose: 4 mg Documented by: Pregabalin (Pregabalin 50 Mg Capsule) 50 mg PO DAILY [facility]UDIO Last Admin: 05/01/20 09:30 Dose: Not Given Documented by: Sodium Chloride (0.9% Saline Lock 10 Ml Syringe) 10 - 40 ml IV UD PRN PRN Reason: SALINE FLUSH Last Admin: 04/30/20 23:11 Dose: 10 ml Documented by: Medical Necessity - Tobacco Use Smoking Status: Former smoker Assessment/Plan All Active Problems (Last Reviewed 04/28/20 @ 21:[address] Jose Alejandro Hardin MD) CORAZON (acute kidney injury) (Acute) Anemia (Acute) CORAZON r/o RPGN HTN SWEETIE positive with elevated ESR and CRP Scr 6.5 from 6.9 from 8 improving f/u serologies 24 hour urine collection I discussed with patient at length about the major risks and benefits of renal biopsy including but not limited to kidney loss damage to other abdominal organs page kidney need for transfusion pain at the biopsy site and she voiced understanding and she agrees to proceed with a renal biopsy. Continue IV fluids Avoid nephrotoxins Blood pressure acceptable continue current medications f/u blood cultures Upon discharge will need to be scheduled with the candy dipper for further evaluation of her elevated ESR CRP and also positive SWEETIE. d/w patient and SOFY Corona
[2020-05-01 12:07] LABS: Cytoplasmic Ab (C-ANCA) <1:20 titer (Neg:<1:20)
[2020-05-01 13:08] LABS: Prothrombin Time (Protime)PT. 13.1 SECONDS (11.7-14.9)
[2020-05-01 13:09] LABS: Partial Thromboplast Time 32.1 Seconds (24.1-36.2)
--- NOTE | 2020-05-01 13:15 | CT_ITS ---
PROCEDURE: CT GUIDED PERCUTANEOUS KIDNEY BIOPSY. DATE: 05/01/2020. INDICATION: Female, 44 years old. Acute renal failure. PHYSICIAN: Barrett Calvert M.D. MEDICATIONS: 2 mg of VERSED and 50 mcg of FENTANYL intravenously. Conscious sedation protocol was followed. Conscious sedation was started at 1:39 PM and terminated at 1:53 PM. The patient was independently monitored by the department nurse. ACCESS SITE: Lower pole of the right kidney. NEEDLE: 18-gauge core biopsy needle. SPECIMEN: 4 cores. EBL: None. COMPLICATIONS: None immediate. RADIATION DOSAGE (If Supplied By Facility): CTDIvol = ( 18 ) mGy, DLP = ( 384.84 ) mGycm. Individualized dose optimization techniques were utilized. The risks, benefits, and alternatives to the procedure and sedation were explained to the patient. The specific risk of hemorrhage requiring further treatment or intervention was detailed and accepted. Written informed consent was obtained. The patient was placed on the CT table in the prone position. Multiple axial images were obtained from the lung base through the caudal extent of the kidneys. An appropriate entry site was identified and a lauro made on the skin. The skin overlying the [ lower pole of the right kidney] posterior flank was prepped and draped in sterile fashion. 1% lidocaine was administered subcutaneously for local anesthesia. Initially, a 22 gauge needle was advanced and CT images confirmed good needle position. The 22 gauge needle was then exchanged for an 17 gauge introducer needle which was advanced. Repeat CT images confirmed good needle trajectory and tip position. The introducer needle was then advanced into the periphery of the inferior renal pole, and CT images were again obtained to confirm exact tip location. The inner stylet of the introducer needle was then removed and an 18 gauge coaxial needle was advanced thru the introducer needle and biopsy performed. A total of [ 4] passes were performed and the specimen collected was sent to Pathology for further evaluation. The needle was withdrawn. Hemostasis was achieved with manual compression and a sterile dressing was applied. Repeat CT images of the biopsy area was performed which demonstrated no gross bleeding or hematoma. The patient tolerated the procedure well without immediate complications. The patient was transported to the [floor] in stable condition. CT/Biopsy/Inj or Needle Placement IMPRESSION: Successful CT guided percutaneous right kidney biopsy. The conscious sedation protocol was followed. Electronically Signed: Barrett Calvert, at 15:02 EST , Service support ,
[2020-05-01] MEDS: Midazolam 2 MG/2 ML Syringe IV (13:39)
[2020-05-01] MEDS: fentaNYL 100 MCG/2 ML Ampul IV (13:39)
--- NOTE | 2020-05-01 13:44 | PCM.PROGNOTE ---
<CjJeanette SANITATION INSPECTOR - Last Filed: 05/01/20 13:56> Patient Problems: Active and Suspected Problems (Last Reviewed 04/28/20 @ 21:[address] Jose Alejandro Hardin MD) CORAZON (acute kidney injury) (Acute) Anemia (Acute) Subjective: Patient seen and examined. Complains of generalized aching. Nephrology recommending renal biopsy, patient agreeable. Complains of headache. Denies other symptoms or complaints. - Physical Exam Vitals/I&O's: Vital Signs Temp Pulse Resp BP Pulse Ox 98.3 F 79 14 152/98 H 100 05/01/20 12:43 05/01/20 12:43 05/01/20 12:43 05/01/20 12:43 05/01/20 12:43 Oxygen Delivery Method Room Air Weight: 232 lb 12.93 oz Body Mass Index (BMI) 39.9 Intake and Output for Last 24 Hours 04/29/20 04/30/20 05/01/20 23:59 23:59 23:59 Intake Total 1886.67 / 1886.67 4483.33 / 4483.33 1660 / 1660 Output Total 1650 / 2850 4250 / 4250 Balance 236.67 / -963.33 233.33 / 233.33 1660 / 1660 General: Alert, Oriented x3, Cooperative HEENT: Atraumatic, PERRLA, EOMI, Normocephalic Neck: Supple, No JVD, Negative Carotid Bruits Lungs: Clear to auscultation, Normal air movement Cardiovascular: Regular rate, No murmurs Abdomen: Bowel Sounds Present, Soft, Non Tender, Non-Distended Extremities: No clubbing, No cyanosis, No edema, Capillary Refill Less than 3 Seconds Skin: No rashes, No breakdown Musculoskeletal: No Tenderness to Palpation of Joints or Extremities Neurological: Cranial nerves II-XII grossly intact, Neuro grossly intact Psych/Mental Status: Normal Affect, Appropriate Microbiology Past 72 Hours 04/30/20 Unknown Urine, Clean Catch Urine Culture - Preliminary Culture exhibits no growth. 04/28/20 19:20 Stool Stool Occult Blood (LAURA) - Final Laboratory Results 04/28/20 18:22: Haptoglobin 258 04/29/20 13:15: SWEETIE Screen Positive H, KIMBERLY-1 Antibody <0.2, SS-A/Ro IgG Antibody > 8.0 H, SS-B/La IgG Antibody 1.2 H, Sm (Do) Antibody <0.2, SALESFORCE CONSULTANT Antibody 0.3, Scl-70 Scleroderma Ab <0.2, Double Strand DNA Ab 1, Centromere B Antibody <0.2 04/30/20 14:00: Ur Total Protein 24 Hr Pending, Urine Total Protein Pending, Urine Albumin Pending, U Sgzcj-5-Dlgqkwpu Pending, U Xwdyc-9-Odcdxhvp Pending, U Beta Globulin Pending, U Gamma Globulin Pending 04/30/20 14:00: Urine Collection Time 24.0, Ur Collection Duration 24.0, Urine Total Volume 2.60, Timed Urine Volume 2575, Urine Creatinine 32.70, Ur Creatinine 24 Hour 0.84, Ur Total Protein 24 Hr 1040.3 H, Urine Total Protein 40.4 H 05/01/20 05:39: WBC 8.3, RBC 2.86 L, Hgb 8.3 L, Hct 25.6 L, MCV 89.5, MCH 29.0, MCHC 32.4, RDW Std Deviation 42.5, RDW Coeff of Daya 12.9, Plt Count 288, MPV 9.7 05/01/20 05:39: Sodium 140, Potassium 4.3, Chloride 113 H, Carbon Dioxide 20.0 L, Anion Gap 7, BUN 45 H, Creatinine 6.44 H, Estim Creat Clear Calc 9.73, Est GFR (MDRD) Af Amer 9 L, Est GFR (MDRD) Non-Af 8 L, BUN/Creatinine Ratio 7.0 L, Glucose 92, Calcium 8.2 L 05/01/20 12:20: PT 13.1, INR 1.0, APTT 32.1 Current Medications Acetaminophen (Acetaminophen 325 Mg Tablet) 650 mg PO Q6H PRN PRN PRN Reason: Pain Score 1-10/Temp > 100.7 F Last Admin: 05/01/20 05:19 Dose: 650 mg Documented by: Albuterol Sulfate (Albuterol 2.5 Mg/3 Ml Vial.Neb.) 2.5 mg INHALATION Q2H PRN PRN PRN Reason: SOB/WHEEZING Dicyclomine HCl (Dicyclomine 10 Mg Capsule) 10 mg PO ACHS [facility] Last Admin: 12/04/20 12:30 Dose: Not Given Documented by: Fentanyl Citrate (Fentanyl 100 Mcg/2 Ml Ampul) 25 - 50 mcg IV UD PRN PRN Reason: Procedural Pain Control Stop: 05/01/20 23:59 Last Admin: 05/01/20 13:39 Dose: 50 mcg Documented by: Hydralazine HCl (Hydralazine 25 Mg Tablet) 25 mg PO TID [facility] Last Admin: 05/01/20 05:10 Dose: Not Given Documented by: Sodium Chloride () 1,000 mls @ 100 mls/hr IV .Q10H [facility] Last Admin: 05/01/20 10:08 Dose: 100 mls/hr Documented by: Pantoprazole Sodium 40 mg/ (Sodium Chloride) 110 mls @ 330 mls/hr IV Q12 [facility] Last Infusion: 05/01/20 10:29 Dose: Infused Documented by: Sodium Chloride () 500 mls @ 15 mls/hr IV .[id number] [facility] Stop: 05/01/20 23:59 Last Admin: 05/01/20 13:40 Dose: Not Given Documented by: Melatonin (Melatonin 3 Mg Tablet) 3 mg PO QHS PRN PRN PRN Reason: INSOMNIA Last Admin: 04/29/20 20:58 Dose: 3 mg Documented by: Midazolam HCl (Midazolam 2 Mg/2 Ml Syringe) 1 - 2 mg IV UD PRN PRN Reason: Procedural Sedation Stop: 05/01/20 23:59 Last Admin: 05/01/20 13:39 Dose: 2 mg Documented by: Ondansetron HCl (Ondansetron 4 Mg/2 Ml Vial) 4 mg IV Q6H PRN PRN PRN Reason: NAUSEA/VOMITING Last Admin: 04/30/20 00:37 Dose: 4 mg Documented by: Pregabalin (Pregabalin 50 Mg Capsule) 50 mg PO DAILY [facility] Last Admin: 05/01/20 09:30 Dose: Not Given Documented by: Sodium Chloride (0.9% Saline Lock 10 Ml Syringe) 10 - 40 ml IV UD PRN PRN Reason: SALINE FLUSH Last Admin: 04/30/20 23:11 Dose: 10 ml Documented by: Medical Necessity - Tobacco Use Smoking Status: Former smoker Assessment/Plan All Active Problems (Last Reviewed 04/28/20 @ 21:[address] Jose Alejandro Hardin MD) CORAZON (acute kidney injury) (Acute) Anemia (Acute) 1. Acute kidney injury-nephrology consulted. Renal ultrasound unremarkable. CT of abdomen normal. Blood and urine cultures pending-patient reports recent fever. HCTZ/lisinopril/NSAIDs on hold. RPR nonreactive. SWEETIE positive. CRP elevated. ESR ordered. Patient will need rheumatology follow-up. Plan for renal biopsy today. Creatinine trending down. Continue IV fluids. Trend BMP. 2. Normocytic anemia-appears significantly reduced from prior baseline labs. Iron/B12/folate normal. Stool negative for occult blood. Continue twice daily PPI. Trend CBC. 3. Hypertension-stable. Home hydrochlorothiazide/lisinopril on hold. Add amlodipine 10 mg daily. 4. Recent ACL tear s/p repair 03/31/2020 5. Morbid obesity-encouraged diet and lifestyle modifications. DVT prophylaxis-SCDs This patient was seen by FERNANDO Guadalupe under the supervision of Dr. Hi. <Jose Miguel Hi - Last Filed: 05/01/20 14:18> Objective: Seen and examined. No significant change in clinical status. Blood pressure and heart rate are controlled. Physical exam General: Alert, Oriented x3, Cooperative HEENT: Atraumatic, PERRLA, EOMI, Normocephalic Oral: No Gingival or Mucosal Lesions/ Ulcerations Neck: Supple, No JVD, Negative Carotid Bruits Lungs: Air entry diminished in bilateral lung bases. No crepitation/rhonchi Cardiovascular: Regular rate, Regular Rhythm, Normal S1, Normal S2, No murmurs Abdomen: Bowel Sounds Present, Soft, Non Tender, Non-Distended : No renal angle tenderness. No suprapubic tenderness. Extremities: No edema, Capillary Refill Less than 3 Seconds Skin: No rashes, No breakdown Musculoskeletal: Varus and valgus movement restricted on left knee. No Tenderness to Palpation of Joints or Extremities Neurological: Cranial nerves II-XII grossly intact, Deep Tendon Reflexes 2+/4 and Symmetrical, Neuro grossly intact Psych/Mental Status: Normal Affect, Appropriate. - Physical Exam Vitals/I&O's: Vital Signs Temp Pulse Resp BP Pulse Ox 98.3 F 99 20 H 139/88 H 99 05/01/20 12:43 05/01/20 14:08 05/01/20 14:08 05/01/20 14:08 05/01/20 14:08 Oxygen Delivery Method [3] Room Air Oxygen Delivery Method [2] Room Air Oxygen Delivery Method [1 ( Room Air Initial Baseline)] Oxygen Delivery Method Room Air Weight: 232 lb 12.93 oz Body Mass Index (BMI) 39.9 Intake and Output for Last 24 Hours 04/29/20 04/30/20 05/01/20 23:59 23:59 23:59 Intake Total 1886.67 / 1886.67 4483.33 / 4483.33 1660 / 1660 Output Total 1650 / 2850 4250 / 4250 Balance 236.67 / -963.33 233.33 / 233.33 1660 / 1660 Microbiology Past 72 Hours 04/30/20 Unknown Urine, Clean Catch Urine Culture - Preliminary Culture exhibits no growth. 04/28/20 19:20 Stool Stool Occult Blood (LAURA) - Final Laboratory Results 04/28/20 18:22: Haptoglobin 258 04/29/20 13:15: SWEETIE Screen Positive H, KIMBERLY-1 Antibody <0.2, SS-A/Ro IgG Antibody > 8.0 H, SS-B/La IgG Antibody 1.2 H, Sm (Do) Antibody <0.2, SALESFORCE CONSULTANT Antibody 0.3, Scl-70 Scleroderma Ab <0.2, Double Strand DNA Ab 1, Centromere B Antibody <0.2 04/30/20 14:00: Ur Total Protein 24 Hr Pending, Urine Total Protein Pending, Urine Albumin Pending, U Mtusk-8-Njscqoye Pending, U Rcqrr-3-Swsbivfz Pending, U Beta Globulin Pending, U Gamma Globulin Pending 04/30/20 14:00: Urine Collection Time 24.0, Ur Collection Duration 24.0, Urine Total Volume 2.60, Timed Urine Volume 2575, Urine Creatinine 32.70, Ur Creatinine 24 Hour 0.84, Ur Total Protein 24 Hr 1040.3 H, Urine Total Protein 40.4 H 05/01/20 05:39: WBC 8.3, RBC 2.86 L, Hgb 8.3 L, Hct 25.6 L, MCV 89.5, MCH 29.0, MCHC 32.4, RDW Std Deviation 42.5, RDW Coeff of Daya 12.9, Plt Count 288, MPV 9.7 05/01/20 05:39: Sodium 140, Potassium 4.3, Chloride 113 H, Carbon Dioxide 20.0 L, Anion Gap 7, BUN 45 H, Creatinine 6.44 H, Estim Creat Clear Calc 9.73, Est GFR (MDRD) Af Amer 9 L, Est GFR (MDRD) Non-Af 8 L, BUN/Creatinine Ratio 7.0 L, Glucose 92, Calcium 8.2 L 05/01/20 05:39: ESR Pending 05/01/20 12:20: PT 13.1, INR 1.0, APTT 32.1 Current Medications Acetaminophen (Acetaminophen 500 Mg Tablet) 1,000 mg PO Q8H PRN PRN PRN Reason: Pain Score 1-10/Temp > 100.7 F Albuterol Sulfate (Albuterol 2.5 Mg/3 Ml Vial.Neb.) 2.5 mg INHALATION Q2H PRN PRN PRN Reason: SOB/WHEEZING Amlodipine Besylate (Amlodipine 10 Mg Tablet) 10 mg PO DAILY [facility] Dicyclomine HCl (Dicyclomine 10 Mg Capsule) 10 mg PO ACHS [facility] Last Admin: 05/01/20 12:30 Dose: Not Given Documented by: Fentanyl Citrate (Fentanyl 100 Mcg/2 Ml Ampul) 25 - 50 mcg IV UD PRN PRN Reason: Procedural Pain Control Stop: 05/01/20 23:59 Last Admin: 05/01/20 13:39 Dose: 50 mcg Documented by: Hydralazine HCl (Hydralazine 25 Mg Tablet) 25 mg PO TID [facility] Last Admin: 05/01/20 05:10 Dose: Not Given Documented by: Sodium Chloride () 1,000 mls @ 100 mls/hr IV .Q10H [facility] Last Admin: 05/01/20 10:08 Dose: 100 mls/hr Documented by: Pantoprazole Sodium 40 mg/ (Sodium Chloride) 110 mls @ 330 mls/hr IV Q12 [facility] Last Infusion: 05/01/20 10:29 Dose: Infused Documented by: Sodium Chloride () 500 mls @ 15 mls/hr IV .[id number] [facility] Stop: 05/01/20 23:59 Last Admin: 05/01/20 13:40 Dose: Not Given Documented by: Melatonin (Melatonin 3 Mg Tablet) 3 mg PO QHS PRN PRN PRN Reason: INSOMNIA Last Admin: 04/29/20 20:58 Dose: 3 mg Documented by: Midazolam HCl (Midazolam 2 Mg/2 Ml Syringe) 1 - 2 mg IV UD PRN PRN Reason: Procedural Sedation Stop: 05/01/20 23:59 Last Admin: 05/01/20 13:39 Dose: 2 mg Documented by: Ondansetron HCl (Ondansetron 4 Mg/2 Ml Vial) 4 mg IV Q6H PRN PRN PRN Reason: NAUSEA/VOMITING Last Admin: 04/30/20 00:37 Dose: 4 mg Documented by: Oxycodone HCl (Oxycodone 5 Mg Tablet) 5 mg PO Q4H PRN PRN PRN Reason: Pain Score 6-10 Pregabalin (Pregabalin 50 Mg Capsule) 50 mg PO DAILY [facility] Last Admin: 05/01/20 09:30 Dose: Not Given Documented by: Sodium Chloride (0.9% Saline Lock 10 Ml Syringe) 10 - 40 ml IV UD PRN PRN Reason: SALINE FLUSH Last Admin: 04/30/20 23:11 Dose: 10 ml Documented by: Assessment/Plan This patient was seen in conjunction with SANITATION INSPECTOR, Jeanette. I have independently interviewed and examined the patient and reviewed pertinent history, examination findings, laboratory and plan of management. I have reviewed the note and agree with the documented findings with the few additional points. In brief, patient is 44-year-old female with no prior kidney disease but hypertension was admitted with mild abdominal cramping's and nausea generalized weakness and abnormal lab work. Patient outside lab work shows sed rate 103, elevated BUN and creatinine and anemia. [facility] by firebreak cutter. Diagnosis: CORAZON, nonoliguric probably ATN from NSAIDs/possible recent infection, although exact etiology unclear: Patient potassium, anion gap in normal limit. BUN/creatinine is gradually improving. Bicarb 20. CT abdomen normal. CRP 30, CK 64. ESR 61. Renal ultrasound reported normal. Renal artery duplex less than 60% stenosis bilateral renal artery. Urine total protein 24-hour 1040, urine total protein 40. SWEETIE screen is positive, SSA more than 8 and SSB 1.2. There is no titer of SWEETIE therefore uncertain to comment on that. Double-stranded DNA negative. Complement C3 and C4 are pending. RPR nonreactive. Patient is scheduled for renal biopsy today. Discussed with the firebreak cutter and autoantibodies, complement level, cryoglobulins, haptoglobin and immunofixation are still pending. Urine sediment is bland. 2D echo is reported normal EF 60%. Cultures x2 are pending. Urine culture negative. Normocytic normochromic chronic anemia. Stool for occult blood negative. Other comorbidities include hypertension, recent ACL repair and morbid obesity, chronic lumbar degenerative disorder and pelvic pain I have discussed my assessment with SANITATION INSPECTORJeanette and orders have been reviewed. Inpatient E&M: [id number] Subs Hosp L2
[2020-05-01 15:20] LABS: Erythrocyte Sedimentation Rate 34 mm/hr (0-20)
[2020-05-01] MEDS: oxyCODONE 5 MG Tablet PO ×2 (15:45→22:45)
[2020-05-01] MEDS: amLODIPine 10 MG Tablet PO (15:46)
[2020-05-01] MEDS: Ondansetron 4 MG/2 ML Vial IV (22:46)
[2020-05-01] MEDS: Acetaminophen 500 MG Tablet 1000 MG PO (22:46)
[2020-05-02 03:28] VITALS: BP 106/69; PULSE 80; RESP 18; TEMP 36.5; O2SAT 100
[2020-05-02 06:21] VITALS: BP 106/55; PULSE 90; RESP 18; TEMP 36.6; O2SAT 100
[2020-05-02 06:24] VITALS: BP 106/55; PULSE 90
[2020-05-02] MEDS: Dicyclomine 10 MG Capsule PO ×4 (06:24→21:47)
[2020-05-02 10:13] LABS: Absolute Lymphocyte Count 0.85 X10^3/uL (0.83-4.51); Absolute Neutrophil Count 6.1 X10^3/uL (2.0-7.7); Basophil# 0.04 X10^3/uL; Basophil% 0.5 % (0-1); Eosinophil# 0.17 X10^3/uL; Eosinophils% 2.2 % (0-5); Hematocrit 23.7 % (37-47); Hemoglobin 7.9 g/dL (12.0-15.0); Lymphocyte # 0.85 X10^3/ul (4.0); Mean Corp Hgb Conc 33.3 g/dL (32-36); Mean Corpuscular Hgb 29.4 pg (27.0-32.0); Mean Corpuscular Volume 88.1 fL (81-99); Mean Platelet Vol. 9.5 fl (6.2-12.0); Monocyte# 0.55 X10^3/uL; Monocyte% 7.1 % (0-10); NRBC Flagged by Analyzer 0 % (0-5); Neutrophil # 6.06 X10^3/uL (2.7-7.7); Neutrophil % 78.7 % (47-70); Platelet Count 266 K/mm3 (150-450); RBC Distribution Width SD 41.1 fl (35.1-43.9); Red Blood Count 2.69 M/mm3 (4.2-5.4); White Blood Count 7.7 K/mm3 (4.4-11.0)
[2020-05-02] MEDS: Acetaminophen 500 MG Tablet 1000 MG PO ×2 (10:20→20:15)
[2020-05-02] MEDS: amLODIPine 10 MG Tablet PO (10:21)
[2020-05-02] MEDS: 0.9% Normal Saline 1,000 ML 100 ML IV ×2 (10:21→20:16)
[2020-05-02 10:25] VITALS: BP 101/70; PULSE 78; RESP 18; TEMP 36.6; O2SAT 97
[2020-05-02 10:56] LABS: Albumin, Serum 2.9 g/dL (3.2-5.0); BUN 32 mg/dL (7-18); Chloride 111 mmol/L (98-107); Creatinine, Serum 5.34 mg/dL (0.55-1.02); EST Glomerular Filtration Rate 9 mL/min (>60); Est Glom Filt Rate - Afr Amer 11 mL/min (>60); Estimated Creatinine Clearance 11.73 ml/min; Glucose 102 mg/dL (74-106); Phosphorus 2.8 mg/dL (2.5-4.9); Sodium Level 136 mmol/L (136-145)
[2020-05-02] MEDS: traMADol 50 MG Tablet PO (11:23)
--- NOTE | 2020-05-02 13:06 | PN_ITS ---
<CjJeanette [facility] - Last Filed: 05/02/20 13:20> Patient Problems: Active and Suspected Problems (Last Reviewed 04/28/20 @ 21:[address] Jose Alejandro dixon MD) CORAZON (acute kidney injury) (Acute) Anemia (Acute) Subjective: Patient seen and examined. Reports ongoing headache. Denies other symptoms or complaints. - Physical Exam Vitals/I&O's: Vital Signs Temp Pulse Resp BP Pulse Ox 97.8 F 78 18 101/70 97 05/02/20 10:25 05/02/20 10:25 05/02/20 10:25 05/02/20 10:25 05/02/20 10:25 Oxygen Delivery Method [3] Room Air Oxygen Delivery Method [2] Room Air Oxygen Delivery Method [1 ( Room Air Initial Baseline)] Oxygen Delivery Method Room Air Weight: 232 lb 12.93 oz Body Mass Index (BMI) 39.9 Intake and Output for Last 24 Hours 04/30/20 05/01/20 05/02/20 23:59 23:59 23:59 Intake Total 4483.33 / 4483.33 3860 / 3860 1563.33 / 1563.33 Output Total 4250 / 4250 2200 / 2200 1500 / 1500 Balance 233.33 / 233.33 1660 / 1660 63.33 / 63.33 General: Alert, Oriented x3, Cooperative HEENT: Atraumatic, PERRLA, EOMI, Normocephalic Neck: Supple, No JVD, Negative Carotid Bruits Lungs: Clear to auscultation, Normal air movement Cardiovascular: Regular rate, No murmurs Abdomen: Bowel Sounds Present, Soft, Non Tender Extremities: No clubbing, No cyanosis, No edema, Capillary Refill Less than 3 Seconds Skin: No rashes, No breakdown Musculoskeletal: No Tenderness to Palpation of Joints or Extremities Neurological: Cranial nerves II-XII grossly intact, Neuro grossly intact Psych/Mental Status: Normal Affect, Appropriate Microbiology Past 72 Hours 04/30/20 Unknown Urine, Clean Catch Urine Culture - Final Mixed Gram Positive Organisms 04/29/20 14:40 Blood Culture (Wb) - Right Hand Blood Culture - Preliminary No growth in 48 hours. 04/29/20 14:30 Blood Culture (Wb) - Anticubital Left Blood Culture - Preliminary No growth in 48 hours. Laboratory Results 05/01/20 05:39: ESR 34 H 05/01/20 12:20: PT 13.1, INR 1.0, APTT 32.1 05/02/20 09:48: WBC 7.7, RBC 2.69 L, Hgb 7.9 L, Hct 23.7 L, MCV 88.1, MCH 29.4, MCHC 33.3, RDW Std Deviation 41.1, RDW Coeff of Daya 13.0, Plt Count 266, MPV 9.5, Immature Gran % (Auto) 0.500, Neut % (Auto) 78.7 H, Lymph % (Auto) 11.0 L, [place] % (Auto) 7.1, Eos % (Auto) 2.2, Baso % (Auto) 0.5, Absolute Neuts (auto) 6.1, Absolute Lymphs (auto) 0.85, Nucleated RBC % 0 05/02/20 09:48: Sodium 136, Potassium 4.0, Chloride 111 H, Carbon Dioxide 18.0 L , BUN 32 H, Creatinine 5.34 H, Estim Creat Clear Calc 11.73, Est GFR (MDRD) Af Amer 11 L, Est GFR (MDRD) Non-Af 9 L, BUN/Creatinine Ratio 6.0 L, Glucose 102, Calcium 8.0 L, Phosphorus 2.8, Albumin 2.9 L Current Medications Acetaminophen (Acetaminophen 500 Mg Tablet) 1,000 mg PO Q8H PRN PRN PRN Reason: Pain Score 1-10/Temp > 100.7 F Last Admin: 05/02/20 10:20 Dose: 1,000 mg Documented by: Albuterol Sulfate (Albuterol 2.5 Mg/3 Ml Vial.Neb.) 2.5 mg INHALATION Q2H PRN PRN PRN Reason: SOB/WHEEZING Amlodipine Besylate (Amlodipine 5 Mg Tablet) 5 mg PO DAILY [facility] Dicyclomine HCl (Dicyclomine 10 Mg Capsule) 10 mg PO ACHS [facility] Last Admin: 05/02/20 10:21 Dose: 10 mg Documented by: Hydralazine HCl (Hydralazine 25 Mg Tablet) 25 mg PO TID [facility] Last Admin: 05/02/20 06:24 Dose: Not Given Documented by: Sodium Chloride () 1,000 mls @ 100 mls/hr IV .Q10H [facility] Last Infusion: 05/02/20 11:00 Dose: 100 mls/hr Documented by: Pantoprazole Sodium 40 mg/ (Sodium Chloride) 110 mls @ 330 mls/hr IV Q12 [facility] Last Infusion: 05/02/20 11:00 Dose: Infused Documented by: Melatonin (Melatonin 3 Mg Tablet) 3 mg PO QHS PRN PRN PRN Reason: INSOMNIA Last Admin: 04/29/20 20:58 Dose: 3 mg Documented by: Ondansetron HCl (Ondansetron 4 Mg/2 Ml Vial) 4 mg IV Q6H PRN PRN PRN Reason: NAUSEA/VOMITING Last Admin: 05/01/20 22:46 Dose: 4 mg Documented by: Oxycodone HCl (Oxycodone 5 Mg Tablet) 5 mg PO Q4H PRN PRN PRN Reason: Pain Score 6-10 Last Admin: 05/01/20 22:45 Dose: 5 mg Documented by: Pregabalin (Pregabalin 50 Mg Capsule) 50 mg PO DAILY [facility] Last Admin: 05/02/20 10:17 Dose: Not Given Documented by: Sodium Chloride (0.9% Saline Lock 10 Ml Syringe) 10 - 40 ml IV UD PRN PRN Reason: SALINE FLUSH Last Admin: 04/30/20 23:11 Dose: 10 ml Documented by: Medical Necessity - Tobacco Use Smoking Status: Former smoker Assessment/Plan All Active Problems (Last Reviewed 04/28/20 @ 21:[address] Jose Alejandro Hardin MD) CORAZON (acute kidney injury) (Acute) Anemia (Acute) 1. Acute kidney injury-nephrology consulted. Renal ultrasound unremarkable. CT of abdomen normal. Blood and urine cultures pending-patient reports recent fever. HCTZ/lisinopril/NSAIDs on hold. RPR nonreactive. SWEETIE positive. CRP/ESR elevated. Patient will need rheumatology follow-up. Renal biopsy 05/01/2020, report pending. Creatinine trending down. Continue IV fluids. Trend BMP. C3/C4 complement and IgG/IgA/IgM/serum cryoglobulins/ANCA pending. 2. Normocytic anemia-appears significantly reduced from prior baseline labs. Iron/B12/folate normal. Stool negative for occult blood. Continue twice daily PPI. Trend CBC. 3. Hypertension-stable. Home hydrochlorothiazide/lisinopril on hold. Add amlodipine 5 mg daily. 4. Recent ACL tear s/p repair 03/31/2020 5. Morbid obesity-encouraged diet and lifestyle modifications. DVT prophylaxis-SCDs This patient was seen by FERNANDO Guadalupe under the supervision of Dr. Hi. <Jose Miguel Hi - Last Filed: 05/02/20 15:31> Objective: Patient reported headache over left temporal region. She has a chronic intermittent left temporal headache. She further said Dr. Govea, her PCP did not ESR was normal but she never had formal diagnosis of giant cell arteritis or temporal artery biopsy. Physical exam General: Alert, Oriented x3, Cooperative HEENT: Atraumatic, PERRLA, EOMI, Normocephalic Oral: No Gingival or Mucosal Lesions/ Ulcerations Neck: Supple, No JVD, Negative Carotid Bruits Lungs: Air entry diminished in bilateral lung bases. No crepitation/rhonchi Cardiovascular: Regular rate, Regular Rhythm, Normal S1, Normal S2, No murmurs Abdomen: Bowel Sounds Present, Soft, Non Tender, Non-Distended : No renal angle tenderness. No suprapubic tenderness. Extremities: No edema, Capillary Refill Less than 3 Seconds Skin: No rashes, No breakdown Musculoskeletal: No Tenderness to Palpation of Joints or Extremities Neurological: Cranial nerves II-XII grossly intact, Deep Tendon Reflexes 2+/4 and Symmetrical, Neuro grossly intact Psych/Mental Status: Normal Affect, Appropriate. - Physical Exam Vitals/I&O's: Vital Signs Temp Pulse Resp BP Pulse Ox 98.1 F 82 16 104/61 99 05/02/20 15:24 05/02/20 15:24 05/02/20 15:24 05/02/20 15:24 05/02/20 15:24 Oxygen Delivery Method [3] Room Air Oxygen Delivery Method [2] Room Air Oxygen Delivery Method [1 ( Room Air Initial Baseline)] Oxygen Delivery Method Room Air Weight: 232 lb 12.93 oz Body Mass Index (BMI) 39.9 Intake and Output for Last 24 Hours 04/30/20 05/01/20 05/02/20 23:59 23:59 23:59 Intake Total 4483.33 / 4483.33 3860 / 3860 1563.33 / 1563.33 Output Total 4250 / 4250 2200 / 2200 1500 / 1500 Balance 233.33 / 233.33 1660 / 1660 63.33 / 63.33 Microbiology Past 72 Hours 04/30/20 Unknown Urine, Clean Catch Urine Culture - Final Mixed Gram Positive Organisms 04/29/20 14:40 Blood Culture (Wb) - Right Hand Blood Culture - Preliminary No growth in 48 hours. 04/29/20 14:30 Blood Culture (Wb) - Anticubital Left Blood Culture - Preliminary No growth in 48 hours. Laboratory Results 05/02/20 09:48: WBC 7.7, RBC 2.69 L, Hgb 7.9 L, Hct 23.7 L, MCV 88.1, MCH 29.4, MCHC 33.3, RDW Std Deviation 41.1, RDW Coeff of Daya 13.0, Plt Count 266, MPV 9.5, Immature Gran % (Auto) 0.500, Neut % (Auto) 78.7 H, Lymph % (Auto) 11.0 L, [place] % (Auto) 7.1, Eos % (Auto) 2.2, Baso % (Auto) 0.5, Absolute Neuts (auto) 6.1, Absolute Lymphs (auto) 0.85, Nucleated RBC % 0 05/02/20 09:48: Sodium 136, Potassium 4.0, Chloride 111 H, Carbon Dioxide 18.0 L , BUN 32 H, Creatinine 5.34 H, Estim Creat Clear Calc 11.73, Est GFR (MDRD) Af Amer 11 L, Est GFR (MDRD) Non-Af 9 L, BUN/Creatinine Ratio 6.0 L, Glucose 102, Calcium 8.0 L, Phosphorus 2.8, Albumin 2.9 L Current Medications Acetaminophen (Acetaminophen 500 Mg Tablet) 1,000 mg PO Q8H PRN PRN PRN Reason: Pain Score 1-10/Temp > 100.7 F Last Admin: 05/02/20 10:20 Dose: 1,000 mg Documented by: Albuterol Sulfate (Albuterol 2.5 Mg/3 Ml Vial.Neb.) 2.5 mg INHALATION Q2H PRN PRN PRN Reason: SOB/WHEEZING Amlodipine Besylate (Amlodipine 5 Mg Tablet) 5 mg PO DAILY [facility] Dicyclomine HCl (Dicyclomine 10 Mg Capsule) 10 mg PO ACHS [facility] Last Admin: 05/02/20 10:21 Dose: 10 mg Documented by: Hydralazine HCl (Hydralazine 25 Mg Tablet) 25 mg PO TID [facility] Last Admin: 05/02/20 15:26 Dose: Not Given Documented by: Sodium Chloride () 1,000 mls @ 100 mls/hr IV .Q10H [facility] Last Infusion: 05/02/20 11:00 Dose: 100 mls/hr Documented by: Pantoprazole Sodium 40 mg/ (Sodium Chloride) 110 mls @ 330 mls/hr IV Q12 [facility] Last Infusion: 05/02/20 11:00 Dose: Infused Documented by: Melatonin (Melatonin 3 Mg Tablet) 3 mg PO QHS PRN PRN PRN Reason: INSOMNIA Last Admin: 04/29/20 20:58 Dose: 3 mg Documented by: Ondansetron HCl (Ondansetron 4 Mg/2 Ml Vial) 4 mg IV Q6H PRN PRN PRN Reason: NAUSEA/VOMITING Last Admin: 05/01/20 22:46 Dose: 4 mg Documented by: Oxycodone HCl (Oxycodone 5 Mg Tablet) 5 mg PO Q4H PRN PRN PRN Reason: Pain Score 6-10 Last Admin: 05/01/20 22:45 Dose: 5 mg Documented by: Pregabalin (Pregabalin 50 Mg Capsule) 50 mg PO DAILY [facility] Last Admin: 05/02/20 10:17 Dose: Not Given Documented by: Sodium Chloride (0.9% Saline Lock 10 Ml Syringe) 10 - 40 ml IV UD PRN PRN Reason: SALINE FLUSH Last Admin: 04/30/20 23:11 Dose: 10 ml Documented by: Assessment/Plan his patient was seen in conjunction with [facility] WORKERJeanette. I have independently interviewed and examined the patient and reviewed pertinent history, examination findings, laboratory and plan of management. I have reviewed the note and agree with the documented findings with the few additional points. In brief, patient is 44-year-old female with no prior kidney disease but hypertension was admitted with mild abdominal cramping's and nausea generalized weakness and abnormal lab work. Patient outside lab work shows sed rate 103, elevated BUN and creatinine and anemia. The patient was further admitted on [facility]. Seen by vein pumper. Diagnosis: CORAZON, nonoliguric probably ATN from NSAIDs/possible recent infection, although exact etiology unclear: Patient potassium, anion gap in normal limit. BUN/creatinine is gradually improving. Bicarb 20. CT abdomen normal. CRP 30, CK 64. ESR 61. Renal ultrasound reported normal. Renal artery duplex less than 60% stenosis bilateral renal artery. Urine total protein 24-hour 1040, urine total protein 40. SWEETIE screen is positive, SSA more than 8 and SSB 1.2. There is no titer of SWEETIE therefore uncertain to comment on that. Double-stranded DNA negative. Complement C3 and C4 are pending. RPR nonreactive. Patient had CT-guided renal biopsy on 05/01/2020. Discussed with the vein pumper and autoantibodies, complement level, cryoglobulins, haptoglobin and immunofixation are still pending. Urine sediment is bland. 2D echo is reported normal EF 60%. Cultures x2 are pending. Urine culture negative. Normocytic normochromic chronic anemia. Stool for occult blood negative. 05/02: Patient complained of left temporal headache. There is no palpable tempor al artery or tenderness. Patient denies shoulder girdle or pelvic girdle pain. ESR 34. Empirically started on steroid Decadron. Patient autoimmune antibodies are pending. Other comorbidities include hypertension, recent ACL repair and morbid obesity, chronic lumbar degenerative disorder and pelvic pain I have discussed my assessment with Jeanette UNDERWOOD and orders have been reviewed. Inpatient E&M: 39204 Subs Hosp L2
[2020-05-02 15:24] VITALS: BP 104/61; PULSE 82; RESP 16; TEMP 36.7; O2SAT 99
[2020-05-02] MEDS: dexAMETHasone 10 MG/ML Vial IV (15:33)
--- NOTE | 2020-05-02 17:48 | PCM.PN.REN ---
Patient Problems: Active and Suspected Problems (Last Reviewed 04/28/20 @ 21:[address] Jose Alejandro Hardin MD) CORAZON (acute kidney injury) (Acute) Anemia (Acute) Subjective: no cp/sob patient denies gross hematuria after the renal biopsy - Physical Exam Vitals/I&O's: Vital Signs Temp Pulse Resp BP Pulse Ox 98.1 F 82 16 104/61 99 05/02/20 15:24 05/02/20 15:24 05/02/20 15:24 05/02/20 15:24 05/02/20 15:24 Oxygen Delivery Method [3] Room Air Oxygen Delivery Method [2] Room Air Oxygen Delivery Method [1 ( Room Air Initial Baseline)] Oxygen Delivery Method Room Air Weight: 105.6 kg Body Mass Index (BMI) 39.9 Intake and Output for Last 24 Hours 04/30/20 05/01/20 05/02/20 23:59 23:59 23:59 Intake Total 4483.33 / 4483.33 3860 / 3860 3320.00 / 3320.00 Output Total 4250 / 4250 2200 / 2200 3500 / 3500 Balance 233.33 / 233.33 1660 / 1660 -180.00 / -180.00 General: Alert, Cooperative HEENT: Atraumatic, Normocephalic Oral: Moist Mucosa Neck: Supple, Trachea Midline Lungs: Clear to auscultation Cardiovascular: Regular rate, Regular Rhythm, Normal S1, Normal S2 Abdomen: Bowel Sounds Present, Soft, Non Tender, Obese Extremities: No edema Microbiology Past 72 Hours 04/30/20 Unknown Urine, Clean Catch Urine Culture - Final Mixed Gram Positive Organisms 04/29/20 14:40 Blood Culture (Wb) - Right Hand Blood Culture - Preliminary No growth in 48 hours. 04/29/20 14:30 Blood Culture (Wb) - Anticubital Left Blood Culture - Preliminary No growth in 48 hours. Laboratory Results 05/02/20 09:48: WBC 7.7, RBC 2.69 L, Hgb 7.9 L, Hct 23.7 L, MCV 88.1, MCH 29.4, MCHC 33.3, RDW Std Deviation 41.1, RDW Coeff of Daya 13.0, Plt Count 266, MPV 9.5, Immature Gran % (Auto) 0.500, Neut % (Auto) 78.7 H, Lymph % (Auto) 11.0 L, [place] % (Auto) 7.1, Eos % (Auto) 2.2, Baso % (Auto) 0.5, Absolute Neuts (auto) 6.1, Absolute Lymphs (auto) 0.85, Nucleated RBC % 0 05/02/20 09:48: Sodium 136, Potassium 4.0, Chloride 111 H, Carbon Dioxide 18.0 L, BUN 32 H, Creatinine 5.34 H, Estim Creat Clear Calc 11.73, Est GFR (MDRD) Af Amer 11 L, Est GFR (MDRD) Non-Af 9 L, BUN/Creatinine Ratio 6.0 L, Glucose 102, Calcium 8.0 L, Phosphorus 2.8, Albumin 2.9 L Current Medications Acetaminophen (Acetaminophen 500 Mg Tablet) 1,000 mg PO Q8H PRN PRN PRN Reason: Pain Score 1-10/Temp > 100.7 F Last Admin: 05/02/20 10:20 Dose: 1,000 mg Documented by: Albuterol Sulfate (Albuterol 2.5 Mg/3 Ml Vial.Neb.) 2.5 mg INHALATION Q2H PRN PRN PRN Reason: SOB/WHEEZING Amlodipine Besylate (Amlodipine 5 Mg Tablet) 5 mg PO DAILY [facility] Dicyclomine HCl (Dicyclomine 10 Mg Capsule) 10 mg PO ACHS [facility] Last Admin: 05/02/20 15:33 Dose: 10 mg Documented by: Hydralazine HCl (Hydralazine 25 Mg Tablet) 25 mg PO TID [facility] Last Admin: 05/02/20 15:26 Dose: Not Given Documented by: Sodium Chloride () 1,000 mls @ 100 mls/hr IV .Q10H [facility] Last Infusion: 05/02/20 17:34 Dose: 100 mls/hr Documented by: Pantoprazole Sodium 40 mg/ (Sodium Chloride) 110 mls @ 330 mls/hr IV Q12 [facility] Last Infusion: 05/02/20 11:00 Dose: Infused Documented by: Melatonin (Melatonin 3 Mg Tablet) 3 mg PO QHS PRN PRN PRN Reason: INSOMNIA Last Admin: 04/29/20 20:58 Dose: 3 mg Documented by: Ondansetron HCl (Ondansetron 4 Mg/2 Ml Vial) 4 mg IV Q6H PRN PRN PRN Reason: NAUSEA/VOMITING Last Admin: 05/01/20 22:46 Dose: 4 mg Documented by: Oxycodone HCl (Oxycodone 5 Mg Tablet) 5 mg PO Q4H PRN PRN PRN Reason: Pain Score 6-10 Last Admin: 05/01/20 22:45 Dose: 5 mg Documented by: Pregabalin (Pregabalin 50 Mg Capsule) 50 mg PO DAILY [facility] Last Admin: 05/02/20 10:17 Dose: Not Given Documented by: Sodium Chloride (0.9% Saline Lock 10 Ml Syringe) 10 - 40 ml IV UD PRN PRN Reason: SALINE FLUSH Last Admin: 04/30/20 23:11 Dose: 10 ml Documented by: Medical Necessity - Tobacco Use Smoking Status: Former smoker Assessment/Plan All Active Problems (Last Reviewed 04/28/20 @ 21:[address] Jose Alejandro Hardin MD) CORAZON (acute kidney injury) (Acute) Anemia (Acute) CORAZON r/o RPGN HTN Proteinuria nonnephrotic SWEETIE positive with elevated ESR and CRP Scr 5.3 from 6.5 from 6.9 from 8 improving f/u serologies renal bx when corazon resolved will need ACEI or ARB with close monitoring in renal office Continue IV fluids Avoid nephrotoxins Blood pressure acceptable continue current medications f/u blood cultures Upon discharge will need to f/u wiht paramedic supervisor for further evaluation of her elevated ESR CRP and also positive SWEETIE. d/w patient
[2020-05-02] MEDS: oxyCODONE 5 MG Tablet PO (20:15)
[2020-05-02 21:47] VITALS: BP 108/55; PULSE 87; RESP 18; TEMP 36.6; O2SAT 97
[2020-05-03] MEDS: oxyCODONE 5 MG Tablet PO ×4 (00:38→22:42)
[2020-05-03 03:57] VITALS: BP 121/77; PULSE 86; RESP 18; TEMP 36.7; O2SAT 100
[2020-05-03] MEDS: Dicyclomine 10 MG Capsule PO ×4 (06:06→21:31)
[2020-05-03] MEDS: Ondansetron 4 MG/2 ML Vial IV ×2 (06:07→22:42)
[2020-05-03] MEDS: Acetaminophen 500 MG Tablet 1000 MG PO ×3 (06:07→22:42)
[2020-05-03] MEDS: 0.9% Normal Saline 1,000 ML 100 ML IV ×2 (06:09→18:07)
[2020-05-03 06:11] VITALS: BP 124/78; PULSE 83
[2020-05-03 06:49] LABS: Albumin, Serum 3.2 g/dL (3.2-5.0); BUN 28 mg/dL (7-18); BUN/Creat Ratio 5.9 RATIO (10-20); Calcium,Total 8.5 mg/dL (8.5-10.1); Chloride 111 mmol/L (98-107); Creatinine, Serum 4.78 mg/dL (0.55-1.02); EST Glomerular Filtration Rate 11 mL/min (>60); Est Glom Filt Rate - Afr Amer 13 mL/min (>60); Glucose 130 mg/dL (74-106); Phosphorus 3.4 mg/dL (2.5-4.9); Potassium 4.2 mmol/L (3.5-5.1); Sodium Level 135 mmol/L (136-145)
[2020-05-03 09:07] LABS: Hematocrit 25.7 % (37-47); Hemoglobin 8.5 g/dL (12.0-15.0); Mean Corp Hgb Conc 33.1 g/dL (32-36); Mean Corpuscular Volume 87.7 fL (81-99); Mean Platelet Vol. 9.8 fl (6.2-12.0); Platelet Count 296 K/mm3 (150-450); RBC Distribution Width CV 12.6 % (11.6-14.6); RBC Distribution Width SD 40.9 fl (35.1-43.9); Red Blood Count 2.93 M/mm3 (4.2-5.4)
[2020-05-03 10:51] VITALS: BP 127/77; PULSE 90; RESP 18; TEMP 36.7; O2SAT 98
[2020-05-03] MEDS: Polyethylene Glycol 3350 17 GM PACKET PO (11:39)
--- NOTE | 2020-05-03 12:18 | PN_ITS ---
<CjJeanette MELT HOUSE SUPERVISOR - Last Filed: 05/03/20 12:20> Patient Problems: Active and Suspected Problems (Last Reviewed 04/28/20 @ 21:[address] Jose Alejandro dixon MD) CORAZON (acute kidney injury) (Acute) Anemia (Acute) Subjective: Patient seen and examined. Reports headache is improved. Overall feeling better. Denies current symptoms or complaints. - Physical Exam Vitals/I&O's: Vital Signs Temp Pulse Resp BP Pulse Ox 98.1 F 90 18 127/77 H 98 05/03/20 10:51 05/03/20 10:51 05/03/20 10:51 05/03/20 10:51 05/03/20 10:51 Oxygen Delivery Method [3] Room Air Oxygen Delivery Method [2] Room Air Oxygen Delivery Method [1 ( Room Air Initial Baseline)] Oxygen Delivery Method Room Air Weight: 232 lb 12.93 oz Body Mass Index (BMI) 39.9 Intake and Output for Last 24 Hours 05/01/20 05/02/20 05/03/20 23:59 23:59 23:59 Intake Total 3860 / 3860 3700.00 / 4200.00 2898.33 / 2898.33 Output Total 2200 / 2200 3500 / 4100 2600 / 2600 Balance 1660 / 1660 200.00 / 100.00 298.33 / 298.33 General: Alert, Oriented x3, Cooperative HEENT: Atraumatic, PERRLA, EOMI, Normocephalic Neck: Supple, No JVD, Negative Carotid Bruits Lungs: Clear to auscultation, Normal air movement Cardiovascular: Regular rate, No murmurs Abdomen: Bowel Sounds Present, Soft, Non Tender, Non-Distended Extremities: No clubbing, No cyanosis, No edema, Capillary Refill Less than 3 Seconds Skin: No rashes, No breakdown Musculoskeletal: No Tenderness to Palpation of Joints or Extremities Neurological: Cranial nerves II-XII grossly intact, Neuro grossly intact Psych/Mental Status: Normal Affect, Appropriate Microbiology Past 72 Hours 04/30/20 Unknown Urine, Clean Catch Urine Culture - Final Mixed Gram Positive Organisms 04/29/20 14:40 Blood Culture (Wb) - Right Hand Blood Culture - Preliminary No growth in 48 hours. 04/29/20 14:30 Blood Culture (Wb) - Anticubital Left Blood Culture - Preliminary No growth in 48 hours. Laboratory Results 05/03/20 05:40: Sodium 135 L, Potassium 4.2, Chloride 111 H, Carbon Dioxide 16.0 L, BUN 28 H, Creatinine 4.78 H, Estim Creat Clear Calc 13.10, Est GFR (MDRD) Af Amer 13 L, Est GFR (MDRD) Non-Af 11 L, BUN/Creatinine Ratio 5.9 L, Glucose 130 H , Calcium 8.5, Phosphorus 3.4, Albumin 3.2 05/03/20 05:40: WBC 10.0, RBC 2.93 L, Hgb 8.5 L, Hct 25.7 L, MCV 87.7, MCH 29.0, MCHC 33.1, RDW Std Deviation 40.9, RDW Coeff of Daya 12.6, Plt Count 296, MPV 9.8 Current Medications Acetaminophen (Acetaminophen 500 Mg Tablet) 1,000 mg PO Q8H PRN PRN PRN Reason: Pain Score 1-10/Temp > 100.7 F Last Admin: 05/03/20 06:07 Dose: 1,000 mg Documented by: Albuterol Sulfate (Albuterol 2.5 Mg/3 Ml Vial.Neb.) 2.5 mg INHALATION Q2H PRN PRN PRN Reason: SOB/WHEEZING Amlodipine Besylate (Amlodipine 5 Mg Tablet) 5 mg PO DAILY [facility] Last Admin: 05/03/20 10:53 Dose: Not Given Documented by: Dicyclomine HCl (Dicyclomine 10 Mg Capsule) 10 mg PO ACHS [facility] Last Admin: 05/03/20 10:54 Dose: 10 mg Documented by: Hydralazine HCl (Hydralazine 25 Mg Tablet) 25 mg PO TID [facility] Last Admin: 05/03/20 06:11 Dose: Not Given Documented by: Sodium Chloride () 1,000 mls @ 100 mls/hr IV .Q10H [facility] Last Admin: 05/03/20 06:09 Dose: 100 mls/hr Documented by: Pantoprazole Sodium 40 mg/ (Sodium Chloride) 110 mls @ 330 mls/hr IV Q12 [facility] Last Infusion: 05/03/20 11:29 Dose: Infused Documented by: Melatonin (Melatonin 3 Mg Tablet) 3 mg PO QHS PRN PRN PRN Reason: INSOMNIA Last Admin: 04/29/20 20:58 Dose: 3 mg Documented by: Ondansetron HCl (Ondansetron 4 Mg/2 Ml Vial) 4 mg IV Q6H PRN PRN PRN Reason: NAUSEA/VOMITING Last Admin: 05/03/20 06:07 Dose: 4 mg Documented by: Oxycodone HCl (Oxycodone 5 Mg Tablet) 5 mg PO Q4H PRN PRN PRN Reason: Pain Score 6-10 Last Admin: 05/03/20 06:08 Dose: 5 mg Documented by: Polyethylene Glycol (Polyethylene Glycol 3350 17 Gm Packet) 17 gm PO DAILY [facility] Last Admin: 05/03/20 11:39 Dose: 17 gm Documented by: Pregabalin (Pregabalin 50 Mg Capsule) 50 mg PO DAILY [facility] Last Admin: 05/03/20 08:33 Dose: Not Given Documented by: Sodium Chloride (0.9% Saline Lock 10 Ml Syringe) 10 - 40 ml IV UD PRN PRN Reason: SALINE FLUSH Last Admin: 04/30/20 23:11 Dose: 10 ml Documented by: Medical Necessity - Tobacco Use Smoking Status: Former smoker Assessment/Plan All Active Problems (Last Reviewed 04/28/20 @ 21:[address] Jose Alejandro Hardin MD) CORAZON (acute kidney injury) (Acute) Anemia (Acute) 1. Acute kidney injury-nephrology consulted. Renal ultrasound unremarkable. CT of abdomen normal. Blood and urine cultures drawn due to recent fever, both negative. HCTZ/lisinopril/NSAIDs on hold. RPR nonreactive. SWEETIE positive. CRP/ESR elevated. Patient will need rheumatology follow-up. Renal biopsy 05/01/2020, report pending. Creatinine trending down. Continue IV fluids. Trend BMP. C3/C4 complement and IgG/IgA/IgM/serum cryoglobulins/ANCA pending. 2. Normocytic anemia-appears significantly reduced from prior baseline labs. Iron/B12/folate normal. Stool negative for occult blood. Continue twice daily PPI. Trend CBC. 3. Hypertension-stable. Home hydrochlorothiazide/lisinopril on hold. Add amlodipine 5 mg daily. 4. Recent ACL tear s/p repair 03/31/2020 5. Morbid obesity-encouraged diet and lifestyle modifications. DVT prophylaxis-SCDs This patient was seen by FERNANDO Guadalupe under the supervision of Dr. Hi. <Jose Miguel Hi - Last Filed: 05/03/20 12:54> Objective: Patient headache was gone by the evening yesterday. She feels better today. Renal biopsy and further nephrology input pending. Physical exam General: Alert, Oriented x3, Cooperative HEENT: Atraumatic, PERRLA, EOMI, Normocephalic. No thickness or hardness found over bilateral temporal artery Oral: No Gingival or Mucosal Lesions/ Ulcerations Neck: Supple, No JVD, Negative Carotid Bruits Lungs: Air entry diminished in bilateral lung bases. No crepitation/rhonchi Cardiovascular: Regular rate, Regular Rhythm, Normal S1, Normal S2, No murmurs Abdomen: Bowel Sounds Present, Soft, Non Tender, Non-Distended : No renal angle tenderness. No suprapubic tenderness. Extremities: No edema, Capillary Refill Less than 3 Seconds Skin: No rashes, No breakdown Musculoskeletal: No Tenderness to Palpation of Joints or Extremities Neurological: Cranial nerves II-XII grossly intact, Deep Tendon Reflexes 2+/4 and Symmetrical, Neuro grossly intact Psych/Mental Status: Normal Affect, Appropriate. - Physical Exam Vitals/I&O's: Vital Signs Temp Pulse Resp BP Pulse Ox 98.1 F 90 18 127/77 H 98 05/03/20 10:51 05/03/20 10:51 05/03/20 10:51 05/03/20 10:51 05/03/20 10:51 Oxygen Delivery Method [3] Room Air Oxygen Delivery Method [2] Room Air Oxygen Delivery Method [1 ( Room Air Initial Baseline)] Oxygen Delivery Method Room Air Weight: 232 lb 12.93 oz Body Mass Index (BMI) 39.9 Intake and Output for Last 24 Hours 05/01/20 05/02/20 05/03/20 23:59 23:59 23:59 Intake Total 3860 / 3860 3700.00 / 4200.00 2898.33 / 2898.33 Output Total 2200 / 2200 3500 / 4100 2600 / 2600 Balance 1660 / 1660 200.00 / 100.00 298.33 / 298.33 Microbiology Past 72 Hours 04/30/20 Unknown Urine, Clean Catch Urine Culture - Final Mixed Gram Positive Organisms 04/29/20 14:40 Blood Culture (Wb) - Right Hand Blood Culture - Preliminary No growth in 48 hours. 04/29/20 14:30 Blood Culture (Wb) - Anticubital Left Blood Culture - Preliminary No growth in 48 hours. Laboratory Results 05/03/20 05:40: Sodium 135 L, Potassium 4.2, Chloride 111 H, Carbon Dioxide 16.0 L, BUN 28 H, Creatinine 4.78 H, Estim Creat Clear Calc 13.10, Est GFR (MDRD) Af Amer 13 L, Est GFR (MDRD) Non-Af 11 L, BUN/Creatinine Ratio 5.9 L, Glucose 130 H , Calcium 8.5, Phosphorus 3.4, Albumin 3.2 05/03/20 05:40: WBC 10.0, RBC 2.93 L, Hgb 8.5 L, Hct 25.7 L, MCV 87.7, MCH 29.0, MCHC 33.1, RDW Std Deviation 40.9, RDW Coeff of Daya 12.6, Plt Count 296, MPV 9.8 Current Medications Acetaminophen (Acetaminophen 500 Mg Tablet) 1,000 mg PO Q8H PRN PRN PRN Reason: Pain Score 1-10/Temp > 100.7 F Last Admin: 05/03/20 06:07 Dose: 1,000 mg Documented by: Albuterol Sulfate (Albuterol 2.5 Mg/3 Ml Vial.Neb.) 2.5 mg INHALATION Q2H PRN PRN PRN Reason: SOB/WHEEZING Amlodipine Besylate (Amlodipine 5 Mg Tablet) 5 mg PO DAILY [facility] Last Admin: 05/03/20 10:53 Dose: Not Given Documented by: Dicyclomine HCl (Dicyclomine 10 Mg Capsule) 10 mg PO ACHS [facility] Last Admin: 05/03/20 10:54 Dose: 10 mg Documented by: Hydralazine HCl (Hydralazine 25 Mg Tablet) 25 mg PO TID [facility] Last Admin: 05/03/20 06:11 Dose: Not Given Documented by: Sodium Chloride () 1,000 mls @ 100 mls/hr IV .Q10H [facility] Last Admin: 05/03/20 06:09 Dose: 100 mls/hr Documented by: Pantoprazole Sodium 40 mg/ (Sodium Chloride) 110 mls @ 330 mls/hr IV Q12 [facility] Last Infusion: 05/03/20 11:29 Dose: Infused Documented by: Melatonin (Melatonin 3 Mg Tablet) 3 mg PO QHS PRN PRN PRN Reason: INSOMNIA Last Admin: 04/29/20 20:58 Dose: 3 mg Documented by: Ondansetron HCl (Ondansetron 4 Mg/2 Ml Vial) 4 mg IV Q6H PRN PRN PRN Reason: NAUSEA/VOMITING Last Admin: 05/03/20 06:07 Dose: 4 mg Documented by: Oxycodone HCl (Oxycodone 5 Mg Tablet) 5 mg PO Q4H PRN PRN PRN Reason: Pain Score 6-10 Last Admin: 05/03/20 06:08 Dose: 5 mg Documented by: Polyethylene Glycol (Polyethylene Glycol 3350 17 Gm Packet) 17 gm PO DAILY [facility] Last Admin: 05/03/20 11:39 Dose: 17 gm Documented by: Pregabalin (Pregabalin 50 Mg Capsule) 50 mg PO DAILY [facility] Last Admin: 05/03/20 08:33 Dose: Not Given Documented by: Sodium Chloride (0.9% Saline Lock 10 Ml Syringe) 10 - 40 ml IV UD PRN PRN Reason: SALINE FLUSH Last Admin: 04/30/20 23:11 Dose: 10 ml Documented by: Assessment/Plan This patient was seen in conjunction with MELT HOUSE SUPERVISOR, Jeanette. I have independently interviewed and examined the patient and reviewed pertinent history, examination findings, laboratory and plan of management. I have reviewed the note and agree with the documented findings with the few additional points. In brief, patient is 44-year-old female with no prior kidney disease but hypertension was admitted with mild abdominal cramping's and nausea generalized weakness and abnormal lab work. Patient outside lab work shows sed rate 103, elevated BUN and creatinine and anemia. The patient was further admitted on [facility]. Seen by pot room supervisor. Diagnosis: CORAZON, nonoliguric probably ATN from NSAIDs/possible recent infection, although exact etiology unclear: Patient potassium, anion gap in normal limit. BUN/creatinine is gradually improving. Bicarb 20. CT abdomen normal. CRP 30, CK 64. ESR 61. Renal ultrasound reported normal. Renal artery duplex less than 60% stenosis bilateral renal artery. Urine total protein 24-hour 1040, urine total protein 40. SWEETIE screen is positive, SSA more than 8 and SSB 1.2. There is no titer of SWEETIE therefore uncertain to comment on that. Double-stranded DNA negative. GBM antibody pending. Complement C3 and C4 are pending. RPR nonreactive. Patient had CT-guided renal biopsy on 05/01/2020. There is gradual decrease in the BUN and creatinine. Haptoglobin 258. Discussed with the pot room supervisor and autoantibodies, complement level, cryoglobulins, and immunofixation are still pending. Urine sediment is bland. 2D echo is reported normal EF 60%. Cultures x2 are pending. Urine culture negative. Normocytic normochromic chronic anemia. Stool for occult blood negative. 05/03: Left temporal headache resolved after Decadron. No acidosis or low blood or pelvic girdle pain. Other comorbidities include hypertension, recent ACL repair and morbid obesity, chronic lumbar degenerative disorder and pelvic pain I have discussed my assessment with Jeanette UNDERWOOD and orders have been reviewed. Inpatient E&M: 50470 Subs Hosp L2
[2020-05-03 14:39] VITALS: BP 132/75; PULSE 96; RESP 18; TEMP 37.1; O2SAT 98
--- NOTE | 2020-05-03 15:46 | PN.RENAL_ITS ---
Patient Problems: Active and Suspected Problems (Last Reviewed 04/28/20 @ 21:[address] Jose Alejandro Hardin MD) CORAZON (acute kidney injury) (Acute) Anemia (Acute) Subjective: no sob/cp - Physical Exam Vitals/I&O's: Vital Signs Temp Pulse Resp BP Pulse Ox 98.7 F 96 18 132/75 H 98 05/03/20 14:39 05/03/20 14:39 05/03/20 14:39 05/03/20 14:39 05/03/20 14:39 Oxygen Delivery Method [3] Room Air Oxygen Delivery Method [2] Room Air Oxygen Delivery Method [1 ( Room Air Initial Baseline)] Oxygen Delivery Method Room Air Weight: 105.6 kg Body Mass Index (BMI) 39.9 Intake and Output for Last 24 Hours 05/01/20 05/02/20 05/03/20 23:59 23:59 23:59 Intake Total 3860 / 3860 3700.00 / 4200.00 2898.33 / 2898.33 Output Total 2200 / 2200 3500 / 4100 2600 / 2600 Balance 1660 / 1660 200.00 / 100.00 298.33 / 298.33 General: Alert, Cooperative HEENT: Atraumatic, Normocephalic Oral: Moist Mucosa Neck: Supple, Trachea Midline Lungs: Clear to auscultation, Normal air movement Cardiovascular: Regular rate, Normal S1, Normal S2 Abdomen: Bowel Sounds Present, Soft, Non Tender Extremities: No edema Microbiology Past 72 Hours 04/30/20 Unknown Urine, Clean Catch Urine Culture - Final Mixed Gram Positive Organisms 04/29/20 14:40 Blood Culture (Wb) - Right Hand Blood Culture - Preliminary No growth in 48 hours. 04/29/20 14:30 Blood Culture (Wb) - Anticubital Left Blood Culture - Preliminary No growth in 48 hours. Laboratory Results 05/03/20 05:40: Sodium 135 L, Potassium 4.2, Chloride 111 H, Carbon Dioxide 16.0 L, BUN 28 H, Creatinine 4.78 H, Estim Creat Clear Calc 13.10, Est GFR (MDRD) Af Amer 13 L, Est GFR (MDRD) Non-Af 11 L, BUN/Creatinine Ratio 5.9 L, Glucose 130 H , Calcium 8.5, Phosphorus 3.4, Albumin 3.2 05/03/20 05:40: WBC 10.0, RBC 2.93 L, Hgb 8.5 L, Hct 25.7 L, MCV 87.7, MCH 29.0, MCHC 33.1, RDW Std Deviation 40.9, RDW Coeff of Daya 12.6, Plt Count 296, MPV 9.8 Current Medications Acetaminophen (Acetaminophen 500 Mg Tablet) 1,000 mg PO Q8H PRN PRN PRN Reason: Pain Score 1-10/Temp > 100.7 F Last Admin: 05/03/20 14:42 Dose: 1,000 mg Documented by: Albuterol Sulfate (Albuterol 2.5 Mg/3 Ml Vial.Neb.) 2.5 mg INHALATION Q2H PRN PRN PRN Reason: SOB/WHEEZING Amlodipine Besylate (Amlodipine 5 Mg Tablet) 5 mg PO DAILY [facility] Last Admin: 05/03/20 10:53 Dose: Not Given Documented by: Dicyclomine HCl (Dicyclomine 10 Mg Capsule) 10 mg PO ACHS [facility] Last Admin: 05/03/20 10:54 Dose: 10 mg Documented by: Hydralazine HCl (Hydralazine 25 Mg Tablet) 25 mg PO TID [facility] Last Admin: 05/03/20 14:40 Dose: Not Given Documented by: Sodium Chloride () 1,000 mls @ 100 mls/hr IV .Q10H [facility] Last Admin: 05/03/20 06:09 Dose: 100 mls/hr Documented by: Pantoprazole Sodium 40 mg/ (Sodium Chloride) 110 mls @ 330 mls/hr IV Q12 [facility] Last Infusion: 05/03/20 11:29 Dose: Infused Documented by: Melatonin (Melatonin 3 Mg Tablet) 3 mg PO QHS PRN PRN PRN Reason: INSOMNIA Last Admin: 04/29/20 20:58 Dose: 3 mg Documented by: Ondansetron HCl (Ondansetron 4 Mg/2 Ml Vial) 4 mg IV Q6H PRN PRN PRN Reason: NAUSEA/VOMITING Last Admin: 05/03/20 06:07 Dose: 4 mg Documented by: Oxycodone HCl (Oxycodone 5 Mg Tablet) 5 mg PO Q4H PRN PRN PRN Reason: Pain Score 6-10 Last Admin: 05/03/20 14:42 Dose: 5 mg Documented by: Polyethylene Glycol (Polyethylene Glycol 3350 17 Gm Packet) 17 gm PO DAILY [facility] Last Admin: 05/03/20 11:39 Dose: 17 gm Documented by: Pregabalin (Pregabalin 50 Mg Capsule) 50 mg PO DAILY [facility] Last Admin: 05/03/20 08:33 Dose: Not Given Documented by: Sodium Chloride (0.9% Saline Lock 10 Ml Syringe) 10 - 40 ml IV UD PRN PRN Reason: SALINE FLUSH Last Admin: 04/30/20 23:11 Dose: 10 ml Documented by: Medical Necessity - Tobacco Use Smoking Status: Former smoker Assessment/Plan All Active Problems (Last Reviewed 04/28/20 @ 21:[address] Jose Alejandro Hardin MD) CORAZON (acute kidney injury) (Acute) Anemia (Acute) CORAZON r/o RPGN HTN Metabolic acidosis Proteinuria nonnephrotic SWEETIE positive with elevated ESR and CRP Scr 4.7 from 5.3 from 6.5 from 6.9 from 8 improving f/u serologies renal bx add bicarb when corazon resolved will need ACEI or ARB with close monitoring in renal office Continue IV fluids Avoid nephrotoxins Blood pressure acceptable continue current medications f/u blood cultures Upon discharge will need to f/u wiht technical training instructor for further evaluation of her elevated ESR CRP and also positive SWEETIE. d/w patient
[2020-05-03] MEDS: Sodium Bicarbonate 650 MG Tablet PO ×2 (18:07→21:31)
[2020-05-03 21:13] VITALS: BP 120/70; PULSE 94; RESP 18; TEMP 36.7; O2SAT 100
[2020-05-03 21:24] VITALS: BP 120/70
[2020-05-04 02:41] VITALS: BP 104/60; PULSE 84; RESP 16; TEMP 36.8; O2SAT 100
[2020-05-04] MEDS: 0.9% Normal Saline 1,000 ML 100 ML IV (02:43)
[2020-05-04] MEDS: Ondansetron 4 MG/2 ML Vial IV ×2 (05:00→17:23)
[2020-05-04] MEDS: Dicyclomine 10 MG Capsule PO ×4 (05:00→22:20)
[2020-05-04] MEDS: Polyethylene Glycol 3350 17 GM PACKET PO (05:01)
[2020-05-04 06:24] LABS: Absolute Lymphocyte Count 1.38 X10^3/uL (0.83-4.51); Absolute Neutrophil Count 8.4 X10^3/uL (2.0-7.7); Basophil# 0.05 X10^3/uL; Basophil% 0.5 % (0-1); Eosinophil# 0.12 X10^3/uL; Eosinophils% 1.1 % (0-5); Hematocrit 25.6 % (37-47); Hemoglobin 8.3 g/dL (12.0-15.0); Lymphocyte # 1.38 X10^3/ul (4.0); Lymphocyte % 13.1 % (19-41); Mean Corp Hgb Conc 32.4 g/dL (32-36); Mean Corpuscular Hgb 28.6 pg (27.0-32.0); Mean Corpuscular Volume 88.3 fL (81-99); Mean Platelet Vol. 9.7 fl (6.2-12.0); Monocyte% 5.7 % (0-10); NRBC Flagged by Analyzer 0 % (0-5); Neutrophil # 8.36 X10^3/uL (2.7-7.7); Neutrophil % 79.2 % (47-70); Platelet Count 300 K/mm3 (150-450); RBC Distribution Width CV 12.9 % (11.6-14.6); RBC Distribution Width SD 41.9 fl (35.1-43.9); White Blood Count 10.6 K/mm3 (4.4-11.0)
[2020-05-04 06:49] LABS: Albumin, Serum 3.3 g/dL (3.2-5.0); BUN 25 mg/dL (7-18); BUN/Creat Ratio 6.3 RATIO (10-20); Calcium,Total 8.3 mg/dL (8.5-10.1); Chloride 113 mmol/L (98-107); Creatinine, Serum 3.97 mg/dL (0.55-1.02); EST Glomerular Filtration Rate 13 mL/min (>60); Est Glom Filt Rate - Afr Amer 16 mL/min (>60); Estimated Creatinine Clearance 15.78 ml/min; Glucose 76 mg/dL (74-106); Phosphorus 2.3 mg/dL (2.5-4.9); Potassium 3.3 mmol/L (3.5-5.1); Sodium Level 139 mmol/L (136-145)
[2020-05-04 08:35] VITALS: BP 131/77; PULSE 85; RESP 18; TEMP 37.1; O2SAT 100
[2020-05-04] MEDS: Sodium Bicarbonate 650 MG Tablet PO ×4 (08:41→22:20)
[2020-05-04] MEDS: Acetaminophen 500 MG Tablet 1000 MG PO ×2 (08:50→17:23)
[2020-05-04] MEDS: oxyCODONE 5 MG Tablet PO ×2 (08:50→22:20)
[2020-05-04 09:08] LABS: Anti-Glomerular Basement Memb 10 units (0-20); Perinuclear Ab (P-ANCA) <1:20 titer (Neg:<1:20)
[2020-05-04] MEDS: Senna/Docusate Sodium 1 Tablet 2 TABLET PO (10:48)
--- NOTE | 2020-05-04 11:07 | PN.RENAL_ITS ---
Patient Problems: Active and Suspected Problems (Last Reviewed 04/28/20 @ 21:[address] Jose Alejandro Hardin MD) CORAZON (acute kidney injury) (Acute) Anemia (Acute) Subjective: no new complaints urine output is good - Physical Exam Vitals/I&O's: Vital Signs Temp Pulse Resp BP Pulse Ox 98.7 F 85 18 131/77 H 100 05/04/20 08:35 05/04/20 08:35 05/04/20 08:35 05/04/20 08:35 05/04/20 08:35 Oxygen Delivery Method [3] Room Air Oxygen Delivery Method [2] Room Air Oxygen Delivery Method [1 ( Room Air Initial Baseline)] Oxygen Delivery Method Room Air Weight: 105.6 kg Body Mass Index (BMI) 39.9 Intake and Output for Last 24 Hours 05/02/20 05/03/20 05/04/20 23:59 23:59 23:59 Intake Total 3700.00 / 4200.00 4008.33 / 4008.33 3970 / 3970 Output Total 3500 / 4100 2600 / 2600 1999 / 1999 Balance 200.00 / 100.00 1408.33 / 1408.33 1969 / 1969 General: Alert, Oriented x3, Cooperative HEENT: Atraumatic, PERRLA, EOMI, Normocephalic Neck: Supple, No JVD, Negative Carotid Bruits Lungs: Clear to auscultation, Normal air movement Cardiovascular: Regular rate, No murmurs Abdomen: Bowel Sounds Present, Soft, Non Tender Extremities: No edema, Capillary Refill Less than 3 Seconds Skin: No rashes, No breakdown Musculoskeletal: No Tenderness to Palpation of Joints or Extremities Neurological: Cranial nerves II-XII grossly intact Psych/Mental Status: Normal Affect, Appropriate Microbiology Past 72 Hours 04/30/20 Unknown Urine, Clean Catch Urine Culture - Final Mixed Gram Positive Organisms 04/29/20 14:40 Blood Culture (Wb) - Right Hand Blood Culture - Preliminary No growth in 48 hours. 04/29/20 14:30 Blood Culture (Wb) - Anticubital Left Blood Culture - Preliminary No growth in 48 hours. Laboratory Results 04/29/20 13:15: c-ANCA Antibody <1:20, Atypical p-ANCA <1:20, p-ANCA Antibody <1:20, Glomerular Base Memb Ab 10 05/04/20 05:33: Sodium 139, Potassium 3.3 L, Chloride 113 H, Carbon Dioxide 21.0, BUN 25 H, Creatinine 3.97 H, Estim Creat Clear Calc 15.78, Est GFR (MDRD) Af Amer 16 L, Est GFR (MDRD) Non-Af 13 L, BUN/Creatinine Ratio 6.3 L, Glucose 76, Calcium 8.3 L, Phosphorus 2.3 L, Albumin 3.3 05/04/20 05:33: WBC 10.6, RBC 2.90 L, Hgb 8.3 L, Hct 25.6 L, MCV 88.3, MCH 28.6, MCHC 32.4, RDW Std Deviation 41.9, RDW Coeff of Daya 12.9, Plt Count 300, MPV 9.7, Immature Gran % (Auto) 0.400, Neut % (Auto) 79.2 H, Lymph % (Auto) 13.1 L, Hand % (Auto) 5.7, Eos % (Auto) 1.1, Baso % (Auto) 0.5, Absolute Neuts (auto) 8.4 H, Absolute Lymphs (auto) 1.38, Nucleated RBC % 0 Current Medications Acetaminophen (Acetaminophen 500 Mg Tablet) 1,000 mg PO Q8H PRN PRN PRN Reason: Pain Score 1-10/Temp > 100.7 F Last Admin: 05/04/20 08:50 Dose: 1,000 mg Documented by: Albuterol Sulfate (Albuterol 2.5 Mg/3 Ml Vial.Neb.) 2.5 mg INHALATION Q2H PRN PRN PRN Reason: SOB/WHEEZING Amlodipine Besylate (Amlodipine 5 Mg Tablet) 5 mg PO DAILY [facility] Last Admin: 05/04/20 09:39 Dose: Not Given Documented by: Dicyclomine HCl (Dicyclomine 10 Mg Capsule) 10 mg PO ACHS [facility]PLAC[facility] Last Admin: 05/04/20 10:51 Dose: 10 mg Documented by: Hydralazine HCl (Hydralazine 25 Mg Tablet) 25 mg PO TID [facility]PL[facility] Last Admin: 05/04/20 04:55 Dose: Not Given Documented by: Sodium Chloride () 1,000 mls @ 100 mls/hr IV .Q10H REPLACED [facility] Last Admin: 05/04/20 02:43 Dose: 100 mls/hr Documented by: Pantoprazole Sodium 40 mg/ (Sodium Chloride) 110 mls @ 330 mls/hr IV Q12 [facility] Last Infusion: 05/04/20 09:10 Dose: Infused Documented by: Melatonin (Melatonin 3 Mg Tablet) 3 mg PO QHS PRN PRN PRN Reason: INSOMNIA Last Admin: 04/29/20 20:58 Dose: 3 mg Documented by: Ondansetron HCl (Ondansetron 4 Mg/2 Ml Vial) 4 mg IV Q6H PRN PRN PRN Reason: NAUSEA/VOMITING Last Admin: 05/04/20 05:00 Dose: 4 mg Documented by: Oxycodone HCl (Oxycodone 5 Mg Tablet) 5 mg PO Q4H PRN PRN PRN Reason: Pain Score 6-10 Last Admin: 05/04/20 08:50 Dose: 5 mg Documented by: Polyethylene Glycol (Polyethylene Glycol 3350 17 Gm Packet) 17 gm PO DAILY [facility] Last Admin: 05/04/20 05:01 Dose: 17 gm Documented by: Pregabalin (Pregabalin 50 Mg Capsule) 50 mg PO DAILY [facility] Last Admin: 05/04/20 08:38 Dose: Not Given Documented by: Senna/Docusate Sodium (Senna/Docusate Sodium 1 Tablet) 2 tablet PO DAILY PRN PRN PRN Reason: CONSTIPATION Last Admin: 05/04/20 10:48 Dose: 2 tablet Documented by: Sodium Bicarbonate (Sodium Bicarbonate 650 Mg Tablet) 650 mg PO 4X/DAY REPLACED BY [facility] Last Admin: 05/04/20 08:41 Dose: 650 mg Documented by: Sodium Chloride (0.9% Saline Lock 10 Ml Syringe) 10 - 40 ml IV UD PRN PRN Reason: SALINE FLUSH Last Admin: 04/30/20 23:11 Dose: 10 ml Documented by: Medical Necessity - Tobacco Use Smoking Status: Former smoker Assessment/Plan All Active Problems (Last Reviewed 04/28/20 @ 21:[address] Jose Alejandro Hardin MD) CORAZON (acute kidney injury) (Acute) Anemia (Acute) CORAZON. reviewed old records. baseline creatinine was normal as of 02/2020. was taking NSAIDs for a long time. renal US is ok Renal doppler reviewed UA shows protein and microscopic hematuria urine protein around 1 gm or so ANCA dsDNA negative SWEETIE, SSA SSB positive CRP is high complements pending CORAZON related to ATN called pathology today, will have H and E and IF by tomorrow morning acidosis. continue oral bicarbonate dw hospitalist service
--- NOTE | 2020-05-04 12:21 | PN_ITS ---
<CjJeanette FINISHER OPERATOR - Last Filed: 05/04/20 12:24> Patient Problems: Active and Suspected Problems (Last Reviewed 04/28/20 @ 21:[address] Jose Alejandro dixon MD) CORAOZN (acute kidney injury) (Acute) Anemia (Acute) Subjective: Patient seen and examined. Per nephrology, will have preliminary renal biopsy results tomorrow morning. Discussed with patient. She is requesting referral to rheumatology. Denies further symptoms or complaints. - Physical Exam Vitals/I&O's: Vital Signs Temp Pulse Resp BP Pulse Ox 98.7 F 85 18 131/77 H 100 05/04/20 08:35 05/04/20 08:35 05/04/20 08:35 05/04/20 08:35 05/04/20 08:35 Oxygen Delivery Method [3] Room Air Oxygen Delivery Method [2] Room Air Oxygen Delivery Method [1 ( Room Air Initial Baseline)] Oxygen Delivery Method Room Air Weight: 232 lb 12.93 oz Body Mass Index (BMI) 39.9 Intake and Output for Last 24 Hours 05/02/20 05/03/20 05/04/20 23:59 23:59 23:59 Intake Total 3700.00 / 4200.00 4008.33 / 4008.33 3970 / 3970 Output Total 3500 / 4100 2600 / 2600 1999 / 1999 Balance 200.00 / 100.00 1408.33 / 1408.33 1969 General: Alert, Oriented x3, Cooperative HEENT: Atraumatic, PERRLA, EOMI, Normocephalic Neck: Supple, No JVD, Negative Carotid Bruits Lungs: Clear to auscultation, Normal air movement Cardiovascular: Regular rate, No murmurs Abdomen: Bowel Sounds Present, Soft, Non Tender, Non-Distended Extremities: No clubbing, No cyanosis, No edema, Capillary Refill Less than 3 Seconds Skin: No rashes, No breakdown Musculoskeletal: No Tenderness to Palpation of Joints or Extremities Neurological: Cranial nerves II-XII grossly intact, Neuro grossly intact Psych/Mental Status: Normal Affect, Appropriate Microbiology Past 72 Hours 04/30/20 Unknown Urine, Clean Catch Urine Culture - Final Mixed Gram Positive Organisms 04/29/20 14:40 Blood Culture (Wb) - Right Hand Blood Culture - Preliminary No growth in 48 hours. 04/29/20 14:30 Blood Culture (Wb) - Anticubital Left Blood Culture - Preliminary No growth in 48 hours. Laboratory Results 04/29/20 13:15: c-ANCA Antibody <1:20, Atypical p-ANCA <1:20, p-ANCA Antibody <1:20, Glomerular Base Memb Ab 10 05/04/20 05:33: Sodium 139, Potassium 3.3 L, Chloride 113 H, Carbon Dioxide 21.0, BUN 25 H, Creatinine 3.97 H, Estim Creat Clear Calc 15.78, Est GFR (MDRD) Af Amer 16 L, Est GFR (MDRD) Non-Af 13 L, BUN/Creatinine Ratio 6.3 L, Glucose 76, Calcium 8.3 L, Phosphorus 2.3 L, Albumin 3.3 05/04/20 05:33: WBC 10.6, RBC 2.90 L, Hgb 8.3 L, Hct 25.6 L, MCV 88.3, MCH 28.6, MCHC 32.4, RDW Std Deviation 41.9, RDW Coeff of Daya 12.9, Plt Count 300, MPV 9.7, Immature Gran % (Auto) 0.400, Neut % (Auto) 79.2 H, Lymph % (Auto) 13.1 L, [place] % (Auto) 5.7, Eos % (Auto) 1.1, Baso % (Auto) 0.5, Absolute Neuts (auto) 8.4 H, Absolute Lymphs (auto) 1.38, Nucleated RBC % 0 Current Medications Acetaminophen (Acetaminophen 500 Mg Tablet) 1,000 mg PO Q8H PRN PRN PRN Reason: Pain Score 1-10/Temp > 100.7 F Last Admin: 05/04/20 08:50 Dose: 1,000 mg Documented by: Albuterol Sulfate (Albuterol 2.5 Mg/3 Ml Vial.Neb.) 2.5 mg INHALATION Q2H PRN PRN PRN Reason: SOB/WHEEZING Amlodipine Besylate (Amlodipine 5 Mg Tablet) 5 mg PO DAILY [facility] Last Admin: 05/04/20 09:39 Dose: Not Given Documented by: Dicyclomine HCl (Dicyclomine 10 Mg Capsule) 10 mg PO ACHS [facility] Last Admin: 05/04/20 10:51 Dose: 10 mg Documented by: Hydralazine HCl (Hydralazine 25 Mg Tablet) 25 mg PO TID [facility] Last Admin: 05/04/20 04:55 Dose: Not Given Documented by: Sodium Chloride () 1,000 mls @ 100 mls/hr IV .Q10H [facility] Last Admin: 05/04/20 02:43 Dose: 100 mls/hr Documented by: Pantoprazole Sodium 40 mg/ (Sodium Chloride) 110 mls @ 330 mls/hr IV Q12 [facility] Last Infusion: 05/04/20 09:10 Dose: Infused Documented by: Melatonin (Melatonin 3 Mg Tablet) 3 mg PO QHS PRN PRN PRN Reason: INSOMNIA Last Admin: 04/29/20 20:58 Dose: 3 mg Documented by: Ondansetron HCl (Ondansetron 4 Mg/2 Ml Vial) 4 mg IV Q6H PRN PRN PRN Reason: NAUSEA/VOMITING Last Admin: 05/04/20 05:00 Dose: 4 mg Documented by: Oxycodone HCl (Oxycodone 5 Mg Tablet) 5 mg PO Q4H PRN PRN PRN Reason: Pain Score 6-10 Last Admin: 05/04/20 08:50 Dose: 5 mg Documented by: Polyethylene Glycol (Polyethylene Glycol 3350 17 Gm Packet) 17 gm PO DAILY [facility] Last Admin: 05/04/20 05:01 Dose: 17 gm Documented by: Pregabalin (Pregabalin 50 Mg Capsule) 50 mg PO DAILY [facility] Last Admin: 05/04/20 08:38 Dose: Not Given Documented by: Senna/Docusate Sodium (Senna/Docusate Sodium 1 Tablet) 2 tablet PO DAILY PRN PRN PRN Reason: CONSTIPATION Last Admin: 05/04/20 10:48 Dose: 2 tablet Documented by: Sodium Bicarbonate (Sodium Bicarbonate 650 Mg Tablet) 650 mg PO 4X/DAY [facility] Last Admin: 05/04/20 08:41 Dose: 650 mg Documented by: Sodium Chloride (0.9% Saline Lock 10 Ml Syringe) 10 - 40 ml IV UD PRN PRN Reason: SALINE FLUSH Last Admin: 04/30/20 23:11 Dose: 10 ml Documented by: Medical Necessity - Tobacco Use Smoking Status: Former smoker Assessment/Plan All Active Problems (Last Reviewed 04/28/20 @ 21:[address] Jose Alejandro Hardin MD) CORAZON (acute kidney injury) (Acute) Anemia (Acute) 1. Acute kidney injury-nephrology consulted. Renal ultrasound unremarkable. CT of abdomen normal. Blood and urine cultures drawn due to recent fever, both negative. HCTZ/lisinopril/NSAIDs on hold. RPR nonreactive. SWEETIE, SSA, SSB positive. ANCA negative. CRP/ESR elevated. Patient will need rheumatology follow-up. Renal biopsy 05/01/2020, report pending. Creatinine trending down. Continue IV fluids. Trend BMP. C3/C4 complement and IgG/IgA/IgM/serum cryoglobulins pending. 2. Normocytic anemia-appears significantly reduced from prior baseline labs. Iron/B12/folate normal. Stool negative for occult blood. Continue PPI. Trend CBC. 3. Hypertension-stable. Home hydrochlorothiazide/lisinopril on hold. Add amlodipine 5 mg daily. 4. Recent ACL tear s/p repair 03/31/2020 5. Morbid obesity-encouraged diet and lifestyle modifications. DVT prophylaxis-SCDs This patient was seen by FERNANDO Guadalupe under the supervision of Dr. Lawrence. <Minoo Lawrence E - Last Filed: 05/04/20 12:39> - Physical Exam Vitals/I&O's: Vital Signs Temp Pulse Resp BP Pulse Ox 98.7 F 85 18 131/77 H 100 05/04/20 08:35 05/04/20 08:35 05/04/20 08:35 05/04/20 08:35 05/04/20 08:35 Oxygen Delivery Method [3] Room Air Oxygen Delivery Method [2] Room Air Oxygen Delivery Method [1 ( Room Air Initial Baseline)] Oxygen Delivery Method Room Air Weight: 232 lb 12.93 oz Body Mass Index (BMI) 39.9 Intake and Output for Last 24 Hours 05/02/20 05/03/20 05/04/20 23:59 23:59 23:59 Intake Total 3700.00 / 4200.00 4008.33 / 4008.33 4370 / 4370 Output Total 3500 / 4100 2600 / 2600 3000 / 3000 Balance 200.00 / 100.00 1408.33 / 1408.33 1370 / 1370 Microbiology Past 72 Hours 04/30/20 Unknown Urine, Clean Catch Urine Culture - Final Mixed Gram Positive Organisms 04/29/20 14:40 Blood Culture (Wb) - Right Hand Blood Culture - Preliminary No growth in 48 hours. 04/29/20 14:30 Blood Culture (Wb) - Anticubital Left Blood Culture - Preliminary No growth in 48 hours. Laboratory Results 04/29/20 13:15: c-ANCA Antibody <1:20, Atypical p-ANCA <1:20, p-ANCA Antibody <1:20, Glomerular Base Memb Ab 10 05/04/20 05:33: Sodium 139, Potassium 3.3 L, Chloride 113 H, Carbon Dioxide 21.0, BUN 25 H, Creatinine 3.97 H, Estim Creat Clear Calc 15.78, Est GFR (MDRD) Af Amer 16 L, Est GFR (MDRD) Non-Af 13 L, BUN/Creatinine Ratio 6.3 L, Glucose 76, Calcium 8.3 L, Phosphorus 2.3 L, Albumin 3.3 05/04/20 05:33: WBC 10.6, RBC 2.90 L, Hgb 8.3 L, Hct 25.6 L, MCV 88.3, MCH 28.6, MCHC 32.4, RDW Std Deviation 41.9, RDW Coeff of Daya 12.9, Plt Count 300, MPV 9.7, Immature Gran % (Auto) 0.400, Neut % (Auto) 79.2 H, Lymph % (Auto) 13.1 L, [place] % (Auto) 5.7, Eos % (Auto) 1.1, Baso % (Auto) 0.5, Absolute Neuts (auto) 8.4 H, Absolute Lymphs (auto) 1.38, Nucleated RBC % 0 Current Medications Acetaminophen (Acetaminophen 500 Mg Tablet) 1,000 mg PO Q8H PRN PRN PRN Reason: Pain Score 1-10/Temp > 100.7 F Last Admin: 05/04/20 08:50 Dose: 1,000 mg Documented by: Albuterol Sulfate (Albuterol 2.5 Mg/3 Ml Vial.Neb.) 2.5 mg INHALATION Q2H PRN PRN PRN Reason: SOB/WHEEZING Amlodipine Besylate (Amlodipine 5 Mg Tablet) 5 mg PO DAILY [facility] Last Admin: 05/04/20 09:39 Dose: Not Given Documented by: Dicyclomine HCl (Dicyclomine 10 Mg Capsule) 10 mg PO ACHS [facility] Last Admin: 05/04/20 10:51 Dose: 10 mg Documented by: Hydralazine HCl (Hydralazine 25 Mg Tablet) 25 mg PO TID [facility] Last Admin: 05/04/20 04:55 Dose: Not Given Documented by: Sodium Chloride () 1,000 mls @ 100 mls/hr IV .Q10H [facility] Last Admin: 05/04/20 02:43 Dose: 100 mls/hr Documented by: Melatonin (Melatonin 3 Mg Tablet) 3 mg PO QHS PRN PRN PRN Reason: INSOMNIA Last Admin: 04/29/20 20:58 Dose: 3 mg Documented by: Ondansetron HCl (Ondansetron 4 Mg/2 Ml Vial) 4 mg IV Q6H PRN PRN PRN Reason: NAUSEA/VOMITING Last Admin: 05/04/20 05:00 Dose: 4 mg Documented by: Oxycodone HCl (Oxycodone 5 Mg Tablet) 5 mg PO Q4H PRN PRN PRN Reason: Pain Score 6-10 Last Admin: 05/04/20 08:50 Dose: 5 mg Documented by: Pantoprazole Sodium (Pantoprazole Sodium 40 Mg Tablet) 40 mg PO DAILY [facility] Polyethylene Glycol (Polyethylene Glycol 3350 17 Gm Packet) 17 gm PO DAILY [facility] Last Admin: 05/04/20 05:01 Dose: 17 gm Documented by: Pregabalin (Pregabalin 50 Mg Capsule) 50 mg PO DAILY [facility] Last Admin: 05/04/20 08:38 Dose: Not Given Documented by: Senna/Docusate Sodium (Senna/Docusate Sodium 1 Tablet) 2 tablet PO DAILY PRN PRN PRN Reason: CONSTIPATION Last Admin: 05/04/20 10:48 Dose: 2 tablet Documented by: Sodium Bicarbonate (Sodium Bicarbonate 650 Mg Tablet) 650 mg PO 4X/DAY [facility] Last Admin: 05/04/20 08:41 Dose: 650 mg Documented by: Sodium Chloride (0.9% Saline Lock 10 Ml Syringe) 10 - 40 ml IV UD PRN PRN Reason: SALINE FLUSH Last Admin: 04/30/20 23:11 Dose: 10 ml Documented by: Assessment/Plan Hospitalist note: I am seeing this patient in conjunction with Jeanette Corona. I independently seen and examined the patient. Progress note above, laboratory data and imaging studies reviewed and I concur with above treatment plan. Today, patient denied any complaints. Her vital signs are stable. - Physical Exam General: Alert, Oriented x3, Cooperative, No apparent distress. HEENT: Atraumatic, PERRLA, EOMI. Neck: Supple, No JVD, Negative Carotid Bruits, Trachea Midline, Thyroid Normal. Lungs: Clear to auscultation, Normal air movement, No rhonchi, No wheeze, No rales. Cardiovascular: Regular rate, Regular Rhythm, Normal S1, Normal S2, PMI Normal. Abdomen: Bowel Sounds Present, Soft, Non Tender, Non-Distended, No Hepato- splenomegaly. Extremities: No clubbing, No cyanosis, No edema Skin: No rashes, No breakdown Neurological: Cranial nerves are intact, neuro grossly intact Vital Signs are stable. Assessment and plan: #1 acute renal failure: Attributed to acute tubular necrosis with possible underlying other type of kidney disease. Kidney function including BUN and creatinine is improving. Patient had kidney biopsy, results are pending. She is on oral bicarb. Nephrology on the case. Plan to continue same treatment, awaiting kidney biopsy result by tomorrow. #2 normocytic anemia: Without evidence of active bleeding. Serum iron, B12 and folate were normal. Stool was negative for occult blood. No indication for blood transfusion. #3 other chronic medical problems: Stable, continue current medications as above. This note was generated with [employer] dictation software. It may contain incorrect words, spelling, and punctuation that were not noted in checking the note before signing. Inpatient E&M: 87711 Subs Hosp L2
--- NOTE | 2020-05-04 13:07 | CHAPLAIN ---
Type of Pastoral Visit ___ Initial Visit _x__ Follow-up Visit ___ On-call Visit ___ General Patient Visit ___ Spiritual Assessment ___ Family Conference ___ Bereavement ___ Rapid Response ___ Code Blue ___ Other (describe below) Pastoral Care Referral From _x__ Patient ___ Family ___ Nurse ___ Physician ___ Simonizer ___ Service Plumber ___ Other (describe below) Sacrament/Intervention _x__ Active listening ___ Anointing ___ Synagogue ___ Bereavement ___ Communion _x__ Celine exploration ___ ___ Life review _x__ Prayer ___ Reconciliation ___ Sacrament of Sick _x__ Supportive presence ___ Wedding ___ Other (describe below) Pastoral Comments
[2020-05-04 14:08] LABS: Immunoglobulin G 1617 mg/dL (586-1602); Immunoglobulin M 173 mg/dL (26-217)
[2020-05-04 14:35] VITALS: BP 119/77; PULSE 79; RESP 18; TEMP 37.2; O2SAT 100
[2020-05-04 14:37] VITALS: BP 119/77; PULSE 83
[2020-05-04 15:34] LABS: Complement C3 152 mg/dL (82-167); Immunoglobulin A < 5 mg/dL (87-352)
[2020-05-04] MEDS: 0.9% Saline Lock 10 ML Syringe IV (17:23)
[2020-05-04 22:14] VITALS: BP 110/57; PULSE 84; RESP 16; TEMP 37.3; O2SAT 100
[2020-05-04 22:18] VITALS: BP 110/57; PULSE 84
[2020-05-05 05:30] VITALS: BP 127/99; PULSE 96; RESP 18; TEMP 37.1; O2SAT 99
[2020-05-05] MEDS: 0.9% Saline Lock 10 ML Syringe IV ×3 (05:37→14:11)
[2020-05-05] MEDS: Dicyclomine 10 MG Capsule PO ×2 (05:38→11:17)
[2020-05-05] MEDS: Acetaminophen 500 MG Tablet 1000 MG PO (05:38)
[2020-05-05 06:49] LABS: Hematocrit 26.1 % (37-47); Hemoglobin 8.4 g/dL (12.0-15.0); Mean Corp Hgb Conc 32.2 g/dL (32-36); Mean Corpuscular Hgb 28.6 pg (27.0-32.0); Mean Corpuscular Volume 88.8 fL (81-99); Mean Platelet Vol. 9.8 fl (6.2-12.0); Platelet Count 289 K/mm3 (150-450); RBC Distribution Width SD 42.5 fl (35.1-43.9); Red Blood Count 2.94 M/mm3 (4.2-5.4)
[2020-05-05 07:23] LABS: Albumin, Serum 3.3 g/dL (3.2-5.0); BUN 27 mg/dL (7-18); BUN/Creat Ratio 6.8 RATIO (10-20); Chloride 109 mmol/L (98-107); EST Glomerular Filtration Rate 13 mL/min (>60); Est Glom Filt Rate - Afr Amer 16 mL/min (>60); Estimated Creatinine Clearance 15.66 ml/min; Glucose 95 mg/dL (74-106); Phosphorus 2.7 mg/dL (2.5-4.9); Potassium 3.6 mmol/L (3.5-5.1); Sodium Level 136 mmol/L (136-145)
[2020-05-05] MEDS: oxyCODONE 5 MG Tablet PO (07:54)
[2020-05-05 07:55] VITALS: BP 165/81; PULSE 81; RESP 18; TEMP 37.1; O2SAT 100
[2020-05-05] MEDS: Sodium Bicarbonate 650 MG Tablet PO ×2 (07:55→14:08)
[2020-05-05] MEDS: Pantoprazole Sodium 40 MG Tablet PO (07:55)
[2020-05-05] MEDS: Ondansetron 4 MG/2 ML Vial IV ×2 (07:58→14:11)
[2020-05-05 09:52] VITALS: BP 149/73
--- NOTE | 2020-05-05 11:19 | PN.RENAL_ITS ---
Patient Problems: Active and Suspected Problems (Last Reviewed 04/28/20 @ 21:[address] Jose Alejandro Hardin MD) CORAZON (acute kidney injury) (Acute) Anemia (Acute) Subjective: no new complaints - Physical Exam Vitals/I&O's: Vital Signs Temp Pulse Resp BP Pulse Ox 98.7 F 81 18 149/73 H 100 05/05/20 07:55 05/05/20 07:55 05/05/20 07:55 05/05/20 09:52 05/05/20 07:55 Oxygen Delivery Method [3] Room Air Oxygen Delivery Method [2] Room Air Oxygen Delivery Method [1 ( Room Air Initial Baseline)] Oxygen Delivery Method Room Air Weight: 105.6 kg Body Mass Index (BMI) 39.9 Intake and Output for Last 24 Hours 05/03/20 05/04/20 05/05/20 23:59 23:59 23:59 Intake Total 4008.33 / 4008.33 7470 / 7470 900 / 900 Output Total 2600 / 2600 3000 / 3000 Balance 1408.33 / 1408.33 4470 / 4470 900 / 900 General: Alert, Oriented x3, Cooperative HEENT: Atraumatic, PERRLA, EOMI, Normocephalic Neck: Supple, No JVD, Negative Carotid Bruits Lungs: Clear to auscultation, Normal air movement Cardiovascular: Regular rate, No murmurs Abdomen: Bowel Sounds Present, Soft, Non Tender Extremities: No edema, Capillary Refill Less than 3 Seconds Skin: No rashes, No breakdown Musculoskeletal: No Tenderness to Palpation of Joints or Extremities Neurological: Cranial nerves II-XII grossly intact Psych/Mental Status: Normal Affect, Appropriate Microbiology Past 72 Hours 04/29/20 14:40 Blood Culture (Wb) - Right Hand Blood Culture - Final No growth in 5 days. 04/29/20 14:30 Blood Culture (Wb) - Anticubital Left Blood Culture - Final No growth in 5 days. 04/30/20 Unknown Urine, Clean Catch Urine Culture - Final Mixed Gram Positive Organisms Laboratory Results 04/29/20 13:15: IgG 1617 H, IgA < 5 L, IgM 173, Serum Immunofixation Comment, Serum Cryoglobulins Comment, Complement C3 152, Complement C4 35 05/05/20 06:12: Sodium 136, Potassium 3.6, Chloride 109 H, Carbon Dioxide 21.0, BUN 27 H, Creatinine 4.00 H, Estim Creat Clear Calc 15.66, Est GFR (MDRD) Af Amer 16 L, Est GFR (MDRD) Non-Af 13 L, BUN/Creatinine Ratio 6.8 L, Glucose 95, Calcium 9.0, Phosphorus 2.7, Albumin 3.3 05/05/20 06:12: WBC 10.0, RBC 2.94 L, Hgb 8.4 L, Hct 26.1 L, MCV 88.8, MCH 28.6, MCHC 32.2, RDW Std Deviation 42.5, RDW Coeff of Daya 13.0, Plt Count 289, MPV 9.8 Current Medications Acetaminophen (Acetaminophen 500 Mg Tablet) 1,000 mg PO Q8H PRN PRN PRN Reason: Pain Score 1-10/Temp > 100.7 F Last Admin: 05/05/20 05:38 Dose: 1,000 mg Documented by: Albuterol Sulfate (Albuterol 2.5 Mg/3 Ml Vial.Neb.) 2.5 mg INHALATION Q2H PRN PRN PRN Reason: SOB/WHEEZING Amlodipine Besylate (Amlodipine 5 Mg Tablet) 5 mg PO DAILY [facility] Last Admin: 05/05/20 09:54 Dose: Not Given Documented by: Dicyclomine HCl (Dicyclomine 10 Mg Capsule) 10 mg PO ACHS [facility] Last Admin: 05/05/20 11:17 Dose: 10 mg Documented by: Hydralazine HCl (Hydralazine 25 Mg Tablet) 25 mg PO TID [facility] Last Admin: 05/05/20 05:35 Dose: Not Given Documented by: Melatonin (Melatonin 3 Mg Tablet) 3 mg PO QHS PRN PRN PRN Reason: INSOMNIA Last Admin: 04/29/20 20:58 Dose: 3 mg Documented by: Ondansetron HCl (Ondansetron 4 Mg/2 Ml Vial) 4 mg IV Q6H PRN PRN PRN Reason: NAUSEA/VOMITING Last Admin: 05/05/20 07:58 Dose: 4 mg Documented by: Oxycodone HCl (Oxycodone 5 Mg Tablet) 5 mg PO Q4H PRN PRN PRN Reason: Pain Score 6-10 Last Admin: 05/05/20 07:54 Dose: 5 mg Documented by: Pantoprazole Sodium (Pantoprazole Sodium 40 Mg Tablet) 40 mg PO DAILY [facility] Last Admin: 05/05/20 07:55 Dose: 40 mg Documented by: Polyethylene Glycol (Polyethylene Glycol 3350 17 Gm Packet) 17 gm PO DAILY [facility] Last Admin: 05/05/20 07:55 Dose: Not Given Documented by: Pregabalin (Pregabalin 50 Mg Capsule) 50 mg PO DAILY [facility] Last Admin: 05/05/20 07:55 Dose: Not Given Documented by: Senna/Docusate Sodium (Senna/Docusate Sodium 1 Tablet) 2 tablet PO DAILY PRN PRN PRN Reason: CONSTIPATION Last Admin: 05/04/20 10:48 Dose: 2 tablet Documented by: Sodium Bicarbonate (Sodium Bicarbonate 650 Mg Tablet) 650 mg PO 4X/DAY [facility] Last Admin: 05/05/20 07:55 Dose: 650 mg Documented by: Sodium Chloride (0.9% Saline Lock 10 Ml Syringe) 10 - 40 ml IV UD PRN PRN Reason: SALINE FLUSH Last Admin: 05/05/20 07:58 Dose: 10 ml Documented by: Medical Necessity - Tobacco Use Smoking Status: Former smoker Assessment/Plan All Active Problems (Last Reviewed 04/28/20 @ 21:[address] Jose Alejandro Hardin MD) CORAZON (acute kidney injury) (Acute) Anemia (Acute) CORAZON. reviewed old records. baseline creatinine was normal as of 02/2020. was taking NSAIDs for a long time. renal US is ok Renal doppler reviewed UA shows protein and microscopic hematuria urine protein around 1 gm or so ANCA dsDNA negative SWEETIE, SSA SSB positive CRP is high complements normal called pathology again. IF negative. rules out lupus and other immune complex mediated GN. H and E will come back later today. if pathology not impressive can dc today
--- NOTE | 2020-05-05 13:47 | PCM.DC ---
- Discharge Diagnoses Current Active Problems: Current Active and Chronic Problems (Last Reviewed 04/28/20 @ 21:[address] Jose Alejandro Hardin MD) CORAZON (acute kidney injury) secondary to acute interstitial nephritis Anemia (Acute) Chronic pelvic pain in female (Chronic) s/p ablation, not hormonal candidate, discussed and recommend TVH BS Body mass index (BMI) of 40.1 to 44.9 in adult (Chronic) nutrition consult, low carb diet, SW 236, adipex Hypertension (Chronic) Allergy-induced asthma (Chronic) You will use the following diet at home:: No restrictions Discharge Activity: Return to Normal Activity Call your doctor if you observe: Fever of 101 or Higher, Shortness of breath, Dizziness, Fainting spells, Chest pain Instructions: Discharge Instructions for Kidney Biopsy, ED Procedural Sedation, (Adult) Additional Instructions: Discontinue further Voltaren, etodolac. May continue previously prescribed as needed tramadol. Allergies/Adverse Reactions: Allergies Penicillins Allergy (Mild, Verified 04/28/20 22:04) Hives? Pt has not had it in many years Medications to take at Discharge albuterol sulfate 90 mcg/actuation aerosol inhaler 2 puff INHALATION Q6H PRN 10/27/17 Acetaminophen [Tylenol] 1,000 mg PO Q8H PRN PRN tablet 05/05/20 Amlodipine [Norvasc] 10 mg PO DAILY #60 tab 05/05/20 Pantoprazole Sodium [Protonix] 40 mg PO DAILY #60 tab 05/05/20 Prednisone 40 mg PO DAILY 14 Days #28 tab 05/05/20 The following prescriptions were given: Amlodipine [Norvasc] 10 mg PO DAILY #60 tab Transmission Status: Pending to [facility] Prednisone 40 mg PO DAILY 14 Days #28 tab Transmission Status: Pending to [facility] Pantoprazole Sodium [Protonix] 40 mg PO DAILY #60 tab Transmission Status: Pending to [facility] Primary Care Physician: Trevor Govea III, MD [Primary Care Provider] - Please follow up with your Primary Care Physician in: 1 Week Test Results: Test results from this visit will be discussed in further detail at your follow-up appointment, if applicable. Please Follow Up With: Bassem Santos MD When: Office to call for follow up-nephrology to order follow-up labs this week Please Follow Up With: Rheumatology, Dr. Barber When: Follow-up as scheduled Proposed Discharge Date: 05/05/20
--- NOTE | 2020-05-05 13:53 | DS.PCM_ITS ---
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 Jose Alejandro Hardin MD) CORAZON (acute kidney injury) (Acute) Anemia (Acute) Date of Admission: 04/28/20 Date of Discharge: 05/05/20 - Primary Discharge Diagnosis Acute Problems: Active Problems (Last Reviewed 04/28/20 @ 21:[address] Jose Alejandro Hardin MD) 1. Acute kidney injury, secondary to acute interstitial nephritis 2. Normocytic anemia 3. Hypertension 4. Recent ACL tear s/p repair 03/31/2020 5. Morbid obesity - Secondary Discharge Diagnosis Chronic Problems: Chronic Problems (Last Reviewed 04/28/20 @ 21:[address] Jose Alejandro Hardin MD) Chronic pelvic pain in female (Chronic) s/p ablation, not hormonal candidate, discussed and recommend [facility] BS Body mass index (BMI) of 40.1 to 44.9 in adult (Chronic) nutrition consult, low carb diet, SW 236, adipex Hypertension (Chronic) Allergy-induced asthma (Chronic) Hospital Course and Treatment Imaging Results: Diagnostic Data Abdomen/Pelvis CT 04/28/20 18:17 IMPRESSION: No definite acute or significant abnormality seen. Electronically Signed: Lonnie Chavez MD at 18:59 EST , Service support , Renal Ultrasound 04/29/20 09:39 IMPRESSION: Normal ultrasound of the kidneys and urinary bladder. Electronically Signed: Barrett Calvert, at 13:10 EST , Service support , Biopsy CT 05/01/20 13:15 IMPRESSION: Successful CT guided percutaneous right kidney biopsy. The conscious sedation protocol was followed. Electronically Signed: Barrett Calvert, at 15:02 EST , Service support , Dr. Loja/Dr. Santos- Nephrology Operations: None Procedures: 2-D Echocardiogram Summary of Care Provided: The patient is a 44 year old F admitted 04/28/2020 due to abnormal labs. 1. Acute kidney injury-secondary to acute interstitial nephritis. Nephrology consulted during admission. Renal ultrasound unremarkable. CT of abdomen normal. Blood and urine cultures drawn due to recent fever, both negative. HCTZ/lisinopril/NSAIDs discontinued. Suspect AIN secondary to recent Voltaren/etodolac initiation. RPR nonreactive. SWEETIE, SSA, SSB positive. ANCA negative. CRP/ESR elevated. Patient will need rheumatology follow-up. Renal biopsy 05/01/2020, report pending however per nephrology initial results consistent with AIN. Creatinine trending down. C3/C4 complements within normal limits. IgG elevated, 1617. IgA less than 5. IgM 173. Serum immunofixation and serum cryoglobulins negative. Patient has rheumatology upcoming follow-up with Dr. Anupama Barber, [facility]. Patient will follow up with nephrology at discharge, Dr. Santos office to call patient for follow-up and order repeat lab work for later this week. 2. Normocytic anemia-appears significantly reduced from prior baseline labs. Iron/B12/folate normal. Stool negative for occult blood. Continue daily PPI. Patient will need further outpatient evaluation by PCP. 3. Hypertension-stable. Home hydrochlorothiazide/lisinopril discontinued. Continue amlodipine 10 mg daily at discharge. 4. Recent ACL tear s/p repair 03/31/2020 5. Morbid obesity-encouraged diet and lifestyle modifications. General: Alert, Oriented x3, Cooperative HEENT: Atraumatic, PERRLA, EOMI, Normocephalic Neck: Supple, No JVD, Negative Carotid Bruits Lungs: Clear to auscultation, Normal air movement Cardiovascular: Regular rate, No murmurs Abdomen: Bowel Sounds Present, Soft, Non Tender, Non-Distended Extremities: No clubbing, No cyanosis, No edema, Capillary Refill Less than 3 Seconds Skin: No rashes, No breakdown Musculoskeletal: No Tenderness to Palpation of Joints or Extremities Neurological: Cranial nerves II-XII grossly intact, Neuro grossly intact Psych/Mental Status: Normal Affect, Appropriate Patient seen and examined prior to discharge. Physical assessment as noted above. Patient is stable for discharge with follow up recommendations as noted above. This patient was seen by FERNANDO Guadalupe under the supervision of Dr. Lawrence. Patient Problems: Active and Suspected Problems (Last Reviewed 04/28/20 @ 21:[address] Jose Alejandro Hardin MD) CORAZON (acute kidney injury) (Acute) Anemia (Acute) - Physical Exam Vitals/I&O's: Vital Signs Temp Pulse Resp BP Pulse Ox 98.7 F 81 18 149/73 H 100 05/05/20 07:55 05/05/20 07:55 05/05/20 07:55 05/05/20 09:52 05/05/20 07:55 Oxygen Delivery Method [3] Room Air Oxygen Delivery Method [2] Room Air Oxygen Delivery Method [1 ( Room Air Initial Baseline)] Oxygen Delivery Method Room Air Weight: 232 lb 12.93 oz Body Mass Index (BMI) 39.9 Intake and Output for Last 24 Hours 05/03/20 05/04/20 05/05/20 23:59 23:59 23:59 Intake Total 4008.33 / 4008.33 7470 / 7470 900 / 900 Output Total 2600 / 2600 3000 / 3000 Balance 1408.33 / 1408.33 4470 / 4470 900 / 900 Microbiology Past 72 Hours 04/29/20 14:40 Blood Culture (Wb) - Right Hand Blood Culture - Final No growth in 5 days. 04/29/20 14:30 Blood Culture (Wb) - Anticubital Left Blood Culture - Final No growth in 5 days. Laboratory Results 04/29/20 13:15: IgG 1617 H, IgA < 5 L, IgM 173, Serum Immunofixation Comment, Serum Cryoglobulins Comment, Complement C3 152, Complement C4 35 05/05/20 06:12: Sodium 136, Potassium 3.6, Chloride 109 H, Carbon Dioxide 21.0, BUN 27 H, Creatinine 4.00 H, Estim Creat Clear Calc 15.66, Est GFR (MDRD) Af Amer 16 L, Est GFR (MDRD) Non-Af 13 L, BUN/Creatinine Ratio 6.8 L, Glucose 95, Calcium 9.0, Phosphorus 2.7, Albumin 3.3 05/05/20 06:12: WBC 10.0, RBC 2.94 L, Hgb 8.4 L, Hct 26.1 L, MCV 88.8, MCH 28.6, MCHC 32.2, RDW Std Deviation 42.5, RDW Coeff of Daya 13.0, Plt Count 289, MPV 9.8 Current Medications Acetaminophen (Acetaminophen 500 Mg Tablet) 1,000 mg PO Q8H PRN PRN PRN Reason: Pain Score 1-10/Temp > 100.7 F Last Admin: 05/05/20 05:38 Dose: 1,000 mg Documented by: Albuterol Sulfate (Albuterol 2.5 Mg/3 Ml Vial.Neb.) 2.5 mg INHALATION Q2H PRN PRN PRN Reason: SOB/WHEEZING Amlodipine Besylate (Amlodipine 5 Mg Tablet) 5 mg PO DAILY [facility] Last Admin: 05/05/20 09:54 Dose: Not Given Documented by: Dicyclomine HCl (Dicyclomine 10 Mg Capsule) 10 mg PO ACHS [facility] Last Admin: 05/05/20 11:17 Dose: 10 mg Documented by: Hydralazine HCl (Hydralazine 25 Mg Tablet) 25 mg PO TID [facility] Last Admin: 05/05/20 05:35 Dose: Not Given Documented by: Melatonin (Melatonin 3 Mg Tablet) 3 mg PO QHS PRN PRN PRN Reason: INSOMNIA Last Admin: 04/29/20 20:58 Dose: 3 mg Documented by: Ondansetron HCl (Ondansetron 4 Mg/2 Ml Vial) 4 mg IV Q6H PRN PRN PRN Reason: NAUSEA/VOMITING Last Admin: 05/05/20 07:58 Dose: 4 mg Documented by: Oxycodone HCl (Oxycodone 5 Mg Tablet) 5 mg PO Q4H PRN PRN PRN Reason: Pain Score 6-10 Last Admin: 05/05/20 07:54 Dose: 5 mg Documented by: Pantoprazole Sodium (Pantoprazole Sodium 40 Mg Tablet) 40 mg PO DAILY [facility] Last Admin: 05/05/20 07:55 Dose: 40 mg Documented by: Polyethylene Glycol (Polyethylene Glycol 3350 17 Gm Packet) 17 gm PO DAILY [facility] Last Admin: 05/05/20 07:55 Dose: Not Given Documented by: Pregabalin (Pregabalin 50 Mg Capsule) 50 mg PO DAILY [facility] Last Admin: 05/05/20 07:55 Dose: Not Given Documented by: Senna/Docusate Sodium (Senna/Docusate Sodium 1 Tablet) 2 tablet PO DAILY PRN PRN PRN Reason: CONSTIPATION Last Admin: 05/04/20 10:48 Dose: 2 tablet Documented by: Sodium Bicarbonate (Sodium Bicarbonate 650 Mg Tablet) 650 mg PO 4X/DAY [facility]UD[facility] Last Admin: 05/05/20 07:55 Dose: 650 mg Documented by: Sodium Chloride (0.9% Saline Lock 10 Ml Syringe) 10 - 40 ml IV UD PRN PRN Reason: SALINE FLUSH Last Admin: 05/05/20 07:58 Dose: 10 ml Documented by: Discharge Diet: No Restrictions Discharge Activity: Return to Normal Activity Call your doctor if you observe: Fever of 101 or Higher, Shortness of breath, Dizziness, Fainting spells, Chest pain Home Medications: Medications to take at Discharge albuterol sulfate 90 mcg/actuation aerosol inhaler 2 puff INHALATION Q6H PRN 10/27/17 Acetaminophen [Tylenol] 1,000 mg PO Q8H PRN PRN tab 05/05/20 Amlodipine [Norvasc] 10 mg PO DAILY #60 tab 05/05/20 Pantoprazole Sodium [Protonix] 40 mg PO DAILY #60 tab 05/05/20 Prednisone 40 mg PO DAILY 14 Days #28 tab 05/05/20 Following Prescriptions Were Given to Patient: Amlodipine [Norvasc] 10 mg PO DAILY #60 tab Transmission Status: Received by [facility] Prednisone 40 mg PO DAILY 14 Days #28 tab Transmission Status: Received by [facility] Pantoprazole Sodium [Protonix] 40 mg PO DAILY #60 tab Transmission Status: Received by [facility] Primary Care Physician: Trevor Govea III, MD [Primary Care Provider] - Please follow up with your Primary Care Physician in: 1 Week Please Follow Up With: Bassem Santos MD When: Office to call for follow up-nephrology to order follow-up labs this week Please Follow Up With: Rheumatology, Dr. Barber When: Follow-up as scheduled Patient Instructions: Discharge Instructions for Kidney Biopsy, ED Procedural Sedation, (Adult) Disposition: Home Minutes spent on discharge:: 35 Patient Condition:: Stable Medical Necessity - Tobacco Use Smoking Status: Former smoker Meaningful Use Info Meaningful Use Diagnoses (Choose all that apply): None applicable <Minoo Lawrence E - Last Filed: 05/05/20 14:20> Discharge Date and Diagnosis - Primary Discharge Diagnosis Acute Problems: Active Problems (Last Reviewed 04/28/20 @ 21:[address] Jose Alejandro Hardin MD) CORAZON (acute kidney injury) (Acute) Anemia (Acute) - Secondary Discharge Diagnosis Chronic Problems: Chronic Problems (Last Reviewed 04/28/20 @ 21:[address] Jose Alejandro Hardin MD) Chronic pelvic pain in female (Chronic) s/p ablation, not hormonal candidate, discussed and recommend [facility] BS Body mass index (BMI) of 40.1 to 44.9 in adult (Chronic) nutrition consult, low carb diet, SW 236, adipex Hypertension (Chronic) Allergy-induced asthma (Chronic) Hospital Course and Treatment Summary of Care Provided: Hospitalist note: Discharge summary above reviewed and I concur with above discharge treatment plan. Patient was admitted for elevated BUN and creatinine as well as low hemoglobin. She was found to have acute renal failure which is attributed to acute interstitial nephritis due to use of NSAIDs. Patient was treated with IV fluids and her kidney function did improve. Kidney ultrasound was done and was unremarkable, there was no evidence of stones or obstruction. CT scan abdomen and pelvis were unremarkable. Patient had spikes of fever for which blood and urine cultures were done and both were negative. Nephrotoxic medications were discontinued. Patient had kidney biopsy during this hospital stay. C3 and C4 complement were within normal limits. IgG was elevated. Serum immunofixation and serum cryoglobulins were negative. Nephrology recommended to start patient on prednisone 40 mg p.o. daily for 2 weeks. With IV fluids, patient kidney function improved. Admission creatinine was 8.07 and it came down to 4 mg/dL upon discharge. Her urine output was satisfactory. Patient is found to have normocytic anemia. There was no evidence of active bleeding. Her stool was negative for occult blood. Her serum iron, B12 and folate were normal. There was no indication for blood transfusion. For hypertension, HCTZ and lisinopril was discontinued and patient was started on Norvasc 10 mg p.o. daily. Patient discharged home in a stable medical condition, discharged on prednisone 40 mg p.o. daily for 2 weeks, discharged on Norvasc for hypertension, plan to follow- up with rheumatology and follow-up with PCP in 1 week, follow-up with nephrology according to Dr. Santos's recommendation. - Physical Exam General: Alert, Oriented x3, Cooperative, No apparent distress. HEENT: Atraumatic, PERRLA, EOMI. Neck: Supple, No JVD, Negative Carotid Bruits, Trachea Midline, Thyroid Normal. Lungs: Clear to auscultation, Normal air movement, No rhonchi, No wheeze, No rales. Cardiovascular: Regular rate, Regular Rhythm, Normal S1, Normal S2, PMI Normal. Abdomen: Bowel Sounds Present, Soft, Non Tender, Non-Distended, No Hepato- splenomegaly. Extremities: No clubbing, No cyanosis, No edema Skin: No rashes, No breakdown Neurological: Cranial nerves are intact, neuro grossly intact Vital Signs are stable. This note was generated with [employer] dictation software. It may contain incorrect words, spelling, and punctuation that were not noted in checking the note before signing. - Physical Exam Vitals/I&O's: Vital Signs Temp Pulse Resp BP Pulse Ox 98.7 F 86 18 150/92 H 100 05/05/20 07:55 05/05/20 14:09 05/05/20 07:55 05/05/20 14:09 05/05/20 07:55 Oxygen Delivery Method [3] Room Air Oxygen Delivery Method [2] Room Air Oxygen Delivery Method [1 ( Room Air Initial Baseline)] Oxygen Delivery Method Room Air Weight: 232 lb 12.93 oz Body Mass Index (BMI) 39.9 Intake and Output for Last 24 Hours 05/03/20 05/04/20 05/05/20 23:59 23:59 23:59 Intake Total 4008.33 / 4008.33 7470 / 7470 900 / 900 Output Total 2600 / 2600 3000 / 3000 Balance 1408.33 / 1408.33 4470 / 4470 900 / 900 Microbiology Past 72 Hours 04/29/20 14:40 Blood Culture (Wb) - Right Hand Blood Culture - Final No growth in 5 days. 04/29/20 14:30 Blood Culture (Wb) - Anticubital Left Blood Culture - Final No growth in 5 days. Laboratory Results 04/29/20 13:15: IgG 1617 H, IgA < 5 L, IgM 173, Serum Immunofixation Comment, Serum Cryoglobulins Comment, Complement C3 152, Complement C4 35 05/05/20 06:12: Sodium 136, Potassium 3.6, Chloride 109 H, Carbon Dioxide 21.0, BUN 27 H, Creatinine 4.00 H, Estim Creat Clear Calc 15.66, Est GFR (MDRD) Af Amer 16 L, Est GFR (MDRD) Non-Af 13 L, BUN/Creatinine Ratio 6.8 L, Glucose 95, Calcium 9.0, Phosphorus 2.7, Albumin 3.3 05/05/20 06:12: WBC 10.0, RBC 2.94 L, Hgb 8.4 L, Hct 26.1 L, MCV 88.8, MCH 28.6, MCHC 32.2, RDW Std Deviation 42.5, RDW Coeff of Daya 13.0, Plt Count 289, MPV 9.8 Current Medications Acetaminophen (Acetaminophen 500 Mg Tablet) 1,000 mg PO Q8H PRN PRN PRN Reason: Pain Score 1-10/Temp > 100.7 F Last Admin: 05/05/20 05:38 Dose: 1,000 mg Documented by: Albuterol Sulfate (Albuterol 2.5 Mg/3 Ml Vial.Neb.) 2.5 mg INHALATION Q2H PRN PRN PRN Reason: SOB/WHEEZING Amlodipine Besylate (Amlodipine 5 Mg Tablet) 5 mg PO DAILY [facility] Last Admin: 05/05/20 09:54 Dose: Not Given Documented by: Dicyclomine HCl (Dicyclomine 10 Mg Capsule) 10 mg PO ACHS [facility] Last Admin: 05/05/20 11:17 Dose: 10 mg Documented by: Hydralazine HCl (Hydralazine 25 Mg Tablet) 25 mg PO TID [facility] Last Admin: 05/05/20 14:09 Dose: 25 mg Documented by: Melatonin (Melatonin 3 Mg Tablet) 3 mg PO QHS PRN PRN PRN Reason: INSOMNIA Last Admin: 04/29/20 20:58 Dose: 3 mg Documented by: Ondansetron HCl (Ondansetron 4 Mg/2 Ml Vial) 4 mg IV Q6H PRN PRN PRN Reason: NAUSEA/VOMITING Last Admin: 05/05/20 14:11 Dose: 4 mg Documented by: Oxycodone HCl (Oxycodone 5 Mg Tablet) 5 mg PO Q4H PRN PRN PRN Reason: Pain Score 6-10 Last Admin: 05/05/20 07:54 Dose: 5 mg Documented by: Pantoprazole Sodium (Pantoprazole Sodium 40 Mg Tablet) 40 mg PO DAILY [facility] Last Admin: 05/05/20 07:55 Dose: 40 mg Documented by: Polyethylene Glycol (Polyethylene Glycol 3350 17 Gm Packet) 17 gm PO DAILY [facility] Last Admin: 05/05/20 07:55 Dose: Not Given Documented by: Pregabalin (Pregabalin 50 Mg Capsule) 50 mg PO DAILY [facility] Last Admin: 05/05/20 07:55 Dose: Not Given Documented by: Senna/Docusate Sodium (Senna/Docusate Sodium 1 Tablet) 2 tablet PO DAILY PRN PRN PRN Reason: CONSTIPATION Last Admin: 05/04/20 10:48 Dose: 2 tablet Documented by: Sodium Bicarbonate (Sodium Bicarbonate 650 Mg Tablet) 650 mg PO 4X/DAY [facility] Last Admin: 05/05/20 14:08 Dose: 650 mg Documented by: Sodium Chloride (0.9% Saline Lock 10 Ml Syringe) 10 - 40 ml IV UD PRN PRN Reason: SALINE FLUSH Last Admin: 05/05/20 14:11 Dose: 10 ml Documented by: Disposition: Home Minutes spent on discharge:: 32 Patient Condition:: Stable Meaningful Use Info Meaningful Use Diagnoses (Choose all that apply): None applicable Inpatient E&M: 33508 Disch Hosp
[2020-05-05 14:09] VITALS: BP 150/92; PULSE 86
[2020-05-05 14:09] LABS: Albumin, Ur 15.1 % (.); Alpha-1-Globulin, Ur 6.2 % (.); Alpha-2-Globulins, Ur 23.2 % (.); Beta Globulin, Ur 30.6 % (.); Gamma Globulin, Ur 24.9 % (.); Protein, 24Ur 420 mg/24 hr (30-150); Total Protein, Ur 16.3 mg/dL (Not Estab.)
[2020-05-05] MEDS: hydrALAZINE 25 MG Tablet PO (14:09)
[2020-05-05 14:10] VITALS: BP 150/92; PULSE 86; RESP 16; TEMP 36.9; O2SAT 100
[2020-05-05 15:01] LABS: M-Spike, Ur % Comment: % (Not Observed)
--- NOTE | 2020-05-07 15:20 | CASEMGMT ---
MARGARITA BHANDARI Discharge Follow-up Phone Call: LOUISAVitaliy: Josh Strata: 3 Call Date: 05/07/20 Discharge Date: 05/05/20 Time of Call: 1520 Duration: 5 min Admitting Diagnosis: CORAZON MARGARITA BHANDARI completed follow-up phone call after recent hospitalization. Patient state she is doing ok, had blood work done yesterday and follow-up with Sales Ledger Administrator Dr. Ruiz. Patient states she has follow-up with PCP tomorrow and psychiatrist on Monday. Patient had no questions or concerns regarding discharge instructions. Patient states she was able to fill prescriptions without any issues. Patient had no further questions or concerns at this time.
== END 2020-05-05 15:29 | disposition home or self-care (01) | DRG 690 ==
LOC: ED 18:51 → MS3 21:11
PROVIDERS: Internal Medicine; Nurse Practitioner Family; Physician Assistant; Radiology Diagnostic Radiology; Admitting Provider Hospitalist; Emergency Provider Student in an Organized Health Care Education/Training Program; PCP Family Medicine; Referring Provider Hospitalist; Visit Provider Hospitalist
DX: N10 Acute pyelonephritis (principal); Z68.41 Body mass index [BMI] 40.0-44.9, adult; E87.2 Acidosis; N17.0 Acute kidney failure with tubular necrosis; I10 Essential (primary) hypertension; E66.01 Morbid (severe) obesity due to excess calories; D64.9 Anemia, unspecified; Z87.891 Personal history of nicotine dependence; J45.998 Other asthma; E87.6 Hypokalemia; M19.90 Unspecified osteoarthritis, unspecified site; M51.36 Other intervertebral disc degeneration, lumbar region; S83.519D Sprain of anterior cruciate ligament of unspecified knee, subsequent encounter; X58.XXXD Exposure to other specified factors, subsequent encounter; Z98.890 Other specified postprocedural states
CPT/HCPCS: 36415; 74176; 76770; 77012; 80048; 80053; 80069; 81001; 81050; 82274; 82550; 82570; 82595; 82607; 82728; 82746; 82784; 83010; 83520; 83540; 83550; 83615; 83690; 84156; 84166; 84300; 84540; 85025; 85027; 85045; 85610; 85652; 85730; 86038; 86140; 86160; 86225; 86235; 86256; 86334; 86335; 86592; 87040; 87086; 87088; 88305; 88313; 88346; 88348; 88350; 93306; 93975; 99284; J7030; Q9957; A4216; C8929; J2405

== ENCOUNTER → 2020-05-06 14:22 | Outpatient (CLI) | payer BC, SELFPAY ==
[2020-04-28 21:50] VITALS: BMI 39.9
[2020-05-06 17:16] LABS: Albumin, Serum 3.8 g/dL (3.2-5.0); BUN 27 mg/dL (7-18); Calcium,Total 9.5 mg/dL (8.5-10.1); Chloride 106 mmol/L (98-107); Creatinine, Serum 4.51 mg/dL (0.55-1.02); EST Glomerular Filtration Rate 11 mL/min (>60); Est Glom Filt Rate - Afr Amer 14 mL/min (>60); Glucose 121 mg/dL (74-106); Phosphorus 3.2 mg/dL (2.5-4.9); Potassium 3.8 mmol/L (3.5-5.1); Sodium Level 135 mmol/L (136-145)
[2020-05-09 13:36] LABS: Anti-Histone Abs 1.2 Units (0.0-0.9)
== END ==
PROVIDERS: PCP Family Medicine; Visit Provider Internal Medicine Nephrology
DX: N17.9 Acute kidney failure, unspecified (principal); R76.8 Other specified abnormal immunological findings in serum
CPT/HCPCS: 36415; 80069; 86235

== ENCOUNTER 2020-05-25 06:58 | Outpatient (RCR) | payer BC, SELFPAY ==
[2020-04-28 21:50] VITALS: BMI 39.9
[2020-05-11 10:35] LABS: Albumin, Serum 3.6 g/dL (3.2-5.0); BUN 31 mg/dL (7-18); BUN/Creat Ratio 13.1 RATIO (10-20); Calcium,Total 8.8 mg/dL (8.5-10.1); Chloride 107 mmol/L (98-107); Creatinine, Serum 2.36 mg/dL (0.55-1.02); EST Glomerular Filtration Rate 24 mL/min (>60); Est Glom Filt Rate - Afr Amer 29 mL/min (>60); Glucose 86 mg/dL (74-106); Phosphorus 1.3 mg/dL (2.5-4.9); Potassium 3.6 mmol/L (3.5-5.1); Sodium Level 136 mmol/L (136-145)
[2020-05-18 08:53] LABS: Albumin, Serum 3.4 g/dL (3.2-5.0); BUN 26 mg/dL (7-18); BUN/Creat Ratio 16.9 RATIO (10-20); Calcium,Total 8.9 mg/dL (8.5-10.1); Chloride 105 mmol/L (98-107); Creatinine, Serum 1.54 mg/dL (0.55-1.02); EST Glomerular Filtration Rate 39 mL/min (>60); Est Glom Filt Rate - Afr Amer 47 mL/min (>60); Glucose 82 mg/dL (74-106); Phosphorus 2.9 mg/dL (2.5-4.9); Potassium 3.4 mmol/L (3.5-5.1); Sodium Level 136 mmol/L (136-145)
[2020-05-25 07:41] LABS: Albumin, Serum 3.6 g/dL (3.2-5.0); BUN 17 mg/dL (7-18); BUN/Creat Ratio 12.5 RATIO (10-20); Calcium,Total 8.8 mg/dL (8.5-10.1); Chloride 107 mmol/L (98-107); Creatinine, Serum 1.36 mg/dL (0.55-1.02); EST Glomerular Filtration Rate 45 mL/min (>60); Est Glom Filt Rate - Afr Amer 54 mL/min (>60); Glucose 90 mg/dL (74-106); Phosphorus 2.9 mg/dL (2.5-4.9); Potassium 3.6 mmol/L (3.5-5.1); Sodium Level 137 mmol/L (136-145)
== END 2020-05-25 18:00 | disposition home or self-care (01) ==
LOC: LAB 06:58
PROVIDERS: PCP Family Medicine; Referring Provider Internal Medicine Nephrology; Visit Provider Internal Medicine Nephrology
DX: N17.9 Acute kidney failure, unspecified (principal); R76.8 Other specified abnormal immunological findings in serum
CPT/HCPCS: 36415; 80069

== ENCOUNTER 2020-06-22 07:47 | Outpatient (RCR) | payer BC, SELFPAY ==
[2020-04-28 21:50] VITALS: BMI 39.9
[2020-06-01 08:53] LABS: Albumin, Serum 3.6 g/dL (3.2-5.0); BUN 25 mg/dL (7-18); BUN/Creat Ratio 18.9 RATIO (10-20); Calcium,Total 8.7 mg/dL (8.5-10.1); Chloride 107 mmol/L (98-107); Creatinine, Serum 1.32 mg/dL (0.55-1.02); EST Glomerular Filtration Rate 47 mL/min (>60); Est Glom Filt Rate - Afr Amer 56 mL/min (>60); Glucose 105 mg/dL (74-106); Phosphorus 3.1 mg/dL (2.5-4.9); Potassium 3.5 mmol/L (3.5-5.1); Sodium Level 138 mmol/L (136-145)
[2020-06-08 07:06] LABS: Hemoglobin 11.3 g/dL (12.0-15.0); Mean Corp Hgb Conc 32.3 g/dL (32-36); Mean Corpuscular Hgb 29.2 pg (27.0-32.0); Mean Corpuscular Volume 90.4 fL (81-99); Platelet Count 306 K/mm3 (150-450); RBC Distribution Width CV 14.6 % (11.6-14.6); RBC Distribution Width SD 47.8 fl (35.1-43.9); Red Blood Count 3.87 M/mm3 (4.2-5.4); White Blood Count 12.1 K/mm3 (4.4-11.0)
[2020-06-08 07:38] LABS: Protein, Urine (Random) 26.6 mg/dL (<11.9); Protein:Creat Ratio 336 mg/g CRE (0-200)
[2020-06-08 08:40] LABS: Albumin, Serum 3.9 g/dL (3.2-5.0); BUN 21 mg/dL (7-18); BUN/Creat Ratio 14.9 RATIO (10-20); CRP < 2.90 mg/L (0.0-3.0); Calcium,Total 9.1 mg/dL (8.5-10.1); Chloride 99 mmol/L (98-107); Creatinine, Serum 1.41 mg/dL (0.55-1.02); EST Glomerular Filtration Rate 43 mL/min (>60); Est Glom Filt Rate - Afr Amer 52 mL/min (>60); Glucose 90 mg/dL (74-106); Phosphorus 3.4 mg/dL (2.5-4.9); Potassium 3.5 mmol/L (3.5-5.1); Sodium Level 134 mmol/L (136-145)
[2020-06-15 08:49] LABS: BUN 21 mg/dL (7-18); BUN/Creat Ratio 16.8 RATIO (10-20); Calcium,Total 9.2 mg/dL (8.5-10.1); Chloride 100 mmol/L (98-107); Creatinine, Serum 1.25 mg/dL (0.55-1.02); EST Glomerular Filtration Rate 50 mL/min (>60); Est Glom Filt Rate - Afr Amer 60 mL/min (>60); Glucose 90 mg/dL (74-106); Phosphorus 3.1 mg/dL (2.5-4.9); Potassium 3.4 mmol/L (3.5-5.1); Sodium Level 136 mmol/L (136-145)
[2020-06-22 08:56] LABS: BUN 20 mg/dL (7-18); BUN/Creat Ratio 17.5 RATIO (10-20); Calcium,Total 8.9 mg/dL (8.5-10.1); Chloride 102 mmol/L (98-107); Creatinine, Serum 1.14 mg/dL (0.55-1.02); EST Glomerular Filtration Rate 55 mL/min (>60); Est Glom Filt Rate - Afr Amer 67 mL/min (>60); Glucose 95 mg/dL (74-106); Phosphorus 2.8 mg/dL (2.5-4.9); Potassium 3.6 mmol/L (3.5-5.1); Sodium Level 135 mmol/L (136-145)
== END 2020-06-22 18:00 | disposition home or self-care (01) ==
LOC: LAB 07:47
PROVIDERS: PCP Family Medicine; Referring Provider Internal Medicine Nephrology; Visit Provider Internal Medicine Nephrology
DX: N17.9 Acute kidney failure, unspecified (principal); R76.8 Other specified abnormal immunological findings in serum
CPT/HCPCS: 36415; 80069; 82570; 84156; 85027; 86038; 86140; 86225

== ENCOUNTER 2020-07-06 08:06 | Outpatient (RCR) | payer BC, SELFPAY ==
[2020-04-28 21:50] VITALS: BMI 39.9
[2020-06-29 17:40] LABS: Absolute Lymphocyte Count 1.44 X10^3/uL (0.83-4.51); Absolute Neutrophil Count 5.1 X10^3/uL (2.0-7.7); Basophil# 0.04 X10^3/uL; Basophil% 0.5 % (0-1); Eosinophil# 0.13 X10^3/uL; Eosinophils% 1.8 % (0-5); Hematocrit 32.3 % (37-47); Hemoglobin 11.4 g/dL (12.0-15.0); Lymphocyte # 1.44 X10^3/ul (4.0); Lymphocyte % 19.7 % (19-41); Mean Corp Hgb Conc 35.3 g/dL (32-36); Mean Corpuscular Volume 90.7 fL (81-99); Mean Platelet Vol. 9.9 fl (6.2-12.0); Monocyte# 0.59 X10^3/uL; Monocyte% 8.1 % (0-10); NRBC Flagged by Analyzer 0 % (0-5); Neutrophil # 5.09 X10^3/uL (2.7-7.7); Neutrophil % 69.6 % (47-70); Platelet Count 255 K/mm3 (150-450); RBC Distribution Width CV 13.4 % (11.6-14.6); RBC Distribution Width SD 43.4 fl (35.1-43.9); Red Blood Count 3.56 M/mm3 (4.2-5.4); White Blood Count 7.3 K/mm3 (4.4-11.0)
[2020-06-29 18:00] LABS: Protein, Urine (Random) 12.5 mg/dL (<11.9); Protein:Creat Ratio 190 mg/g CRE (0-200)
[2020-06-29 18:08] LABS: Albumin, Serum 3.8 g/dL (3.2-5.0); BUN 23 mg/dL (7-18); BUN/Creat Ratio 18.5 RATIO (10-20); CRP 2.91 mg/L (0.0-3.0); Calcium,Total 9.5 mg/dL (8.5-10.1); Chloride 104 mmol/L (98-107); Creatinine, Serum 1.24 mg/dL (0.55-1.02); EST Glomerular Filtration Rate 50 mL/min (>60); Est Glom Filt Rate - Afr Amer 61 mL/min (>60); Glucose 83 mg/dL (74-106); Potassium 3.5 mmol/L (3.5-5.1); Sodium Level 136 mmol/L (136-145)
[2020-07-06 10:31] LABS: Albumin, Serum 3.8 g/dL (3.2-5.0); BUN 29 mg/dL (7-18); BUN/Creat Ratio 25.7 RATIO (10-20); Calcium,Total 9.2 mg/dL (8.5-10.1); Chloride 106 mmol/L (98-107); Creatinine, Serum 1.13 mg/dL (0.55-1.02); EST Glomerular Filtration Rate 56 mL/min (>60); Est Glom Filt Rate - Afr Amer 67 mL/min (>60); Glucose 77 mg/dL (74-106); Phosphorus 3.2 mg/dL (2.5-4.9); Potassium 3.7 mmol/L (3.5-5.1); Sodium Level 138 mmol/L (136-145)
== END 2020-07-06 18:00 | disposition home or self-care (01) ==
LOC: LAB 08:06
PROVIDERS: PCP Family Medicine; Referring Provider Internal Medicine Nephrology; Visit Provider Internal Medicine Nephrology
DX: N17.9 Acute kidney failure, unspecified (principal)
CPT/HCPCS: 36415; 80069; 82570; 84156; 85025; 86038; 86140; 86225

== ENCOUNTER → 2020-07-27 08:00 | Outpatient (CLI) | payer BC, SELFPAY ==
[2020-04-28 21:50] VITALS: BMI 39.9
--- NOTE | 2020-07-27 08:01 | BI_ITS ---
MAMMOGRAPHY - BILATERAL SCREENING REASON FOR EXAM: Female, 44 years old. Routine annual screening examination. PERTINENT HISTORY: Non-contributory. TECHNIQUE: Digital bilateral breast mary (3D mammographic acquisition) in the CC and MLO projections. 2-D mediolateral oblique (MLO) and craniocaudad (CC) views of both breasts were obtained. CAD: Full Field Digital Mammography with Computer Added Detection was performed. COMPARISON: Comparison is made with prior study dated 07/23/2019 and 11/01/2018. FINDINGS: Breast Composition: There are scattered areas of fibroglandular density. There are no dominant masses or suspicious calcifications. Stable small benign-appearing bilateral axillary lymph nodes. No other significant abnormalities are identified. There has been no significant change since the prior study. BI/SCRN MAMM (CAD)W/MARY BILAT IMPRESSION: Stable bilateral screening mammogram. Yearly follow-up mammogram recommended. (A) ASSESSMENT CATEGORY: BIRADS Category 2: Benign. A letter regarding these results will be sent to the patient by the facility within 30 days. Approximately 10% of breast cancers are not detected by mammography. A normal mammogram should not delay biopsy of a clinically suspicious abnormality. [id number] Electronically Signed: Barrett Calvert MD at 9:05 EST , Service support ,
== END ==
PROVIDERS: PCP Family Medicine; Referring Provider Obstetrics & Gynecology; Visit Provider Obstetrics & Gynecology
DX: Z12.31 Encounter for screening mammogram for malignant neoplasm of breast (principal)
CPT/HCPCS: 77063; 77067

== ENCOUNTER → 2020-10-13 08:27 | Outpatient (CLI) | payer BC, SELFPAY ==
[2020-04-28 21:50] VITALS: BMI 39.9
[2020-10-13 09:13] LABS: Anion Gap 4 (5-15); BUN 19 mg/dL (7-18); BUN/Creat Ratio 19.2 RATIO (10-20); Calcium,Total 8.8 mg/dL (8.5-10.1); Chloride 103 mmol/L (98-107); Creatinine, Serum 0.99 mg/dL (0.55-1.02); EST Glomerular Filtration Rate 65 mL/min (>60); Est Glom Filt Rate - Afr Amer 79 mL/min (>60); Glucose 99 mg/dL (74-106); Sodium Level 136 mmol/L (136-145)
== END ==
PROVIDERS: PCP Family Medicine; Referring Provider Internal Medicine Nephrology; Visit Provider Internal Medicine Nephrology
DX: N10 Acute pyelonephritis (principal)
CPT/HCPCS: 36415; 80048

== ENCOUNTER → 2021-03-05 10:21 | Outpatient (CLI) | payer BC, SELFPAY ==
[2020-04-28 21:50] VITALS: BMI 39.9
== END ==
PROVIDERS: PCP Family Medicine; Visit Provider Internal Medicine Nephrology
DX: N10 Acute pyelonephritis (principal)

== ENCOUNTER 2021-06-22 08:24 | Outpatient (RCR) | payer BC, SELFPAY ==
--- NOTE | 2021-06-22 14:46 | HP.OTEVAL ---
Patient's Visit Information MADIHA ORDOÑEZ is a 45 year old F, referred to Occupational Therapy by Dr. Mauro Grimes MD, with a diagnosis of OA bilateral hands. Date of Evaluation: 06/22/21 Occupational Therapist: Jacque Lopez, DOMINICK/Naveed, CHT - Subjective this 45 year old female was seen for OT eval with dx of OA bilateral hands. pt states her hands have been hurting close to 10 years- pts states last 5 years throbbing in joint- of PIP of left RF and IF and right hand IP of thumb- pt also has Lupus- an is treated by a mathematical statistician for her pain. 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 pt would like to return to her [facility] but is moving in next few weeks to [place]. - Pain right hand 2 Pain Intensity Range: 3 left hand 3 Pain Intensity Range: 3, 5 right hand ' 3 Pain Intensity Range: 3 - Objective pt cracked knuckles multiple times during assessment- pt states this helps to decrease pressure she feels in her fingers- but does not last long. states she has been cracking her knuckles for a while. - ROM Wrist: right 60/45 left 60/45 CMC: right 10 left 0 MP: right 65 left 60 IP: right 55 left 55 Radial Abduction: right 40 left 45 ROM Comments: pt demo full ROM of bilateral hands-. no Hyperextension. no ulnar or radial deviation at joints. no lateral instability at this time. no flexed posturing. good angulation with composite fist - Strength Psychiatric Specialist: right 50# left 60# Lateral Pinch: right 10# left 10# Tripod Pinch: right 10# left 10# - Edema PIP: right MF 6.2 left 6.0 Other: right IP 6.4 left 6.0 - Sensation Sensation Comments: denies - Quick DASH-Disab of Arm,Shoulder& Hand Quick DASH Score: 50.0000 - Goals Goal:: pt will report no pain greater than 1/10 with use of bilateral hand for ADLs and IADls by d/c. pt will demo understanding to stop activity if hands become painful to prevent further lig.or joint injury by 2nd visit. Goal:: pt will demo understanding of joint protection and initate afshan. by week 3 to limit joint stress and increase pts ind. with ADLS. pt will demo understanding of using ad. eq. to prevent joint stress and increase pts ind. with ADLs by d.c - Rehabilitation General Assessment: Pt demo with OA signs in bilateral hand due to increase pain with use-pt is limited with her ADLs and IADls due to pain- pt would benefit from skilled OT services 3 visits until pt moves out of state. Therapist will ed. pt on joint protection, ad. eq. ergo to preserve joints and limit stress on ligaments allowing pt to keep joint integrity and limit pain when performing ADls and IADls. pt demo understanding and agree to pt POC. Today therapist assessed pt for silver ring splints per pt request. At this time pt does not demo need for splinting intervention. pt demo understanding. Therapist instructed pt on OA gloves with finger tips out, ROM and when fingers are painful stop the tasks and give hands a rest pt demo understanding. Rehabilitation Potential: Good - Anticipated Interventions Modalities, Orthoses, Joint Protection/Energy Conservation, Ergonomic Education, Education re assistive Equipment, Education re Diagnosis - Visit Plan Frequency: 1-2x /Week Duration: 3 Weeks TEXT: Thank you for the opportunity to evaluate your patient. For Medicare and Medicare HMO plans, please review the plan of care and approve it. It will need to be FAXED BACK to us at [phone] for Medicare purposes. Please let me know if there are questions or concerns regarding this plan of care. Physician Signature: Date:
--- NOTE | 2021-10-08 09:35 | HP.OTDCSUM ---
It has been my pleasure to treat MADIHA ORDOÑEZ under orders from Dr. Mauro Grimes MD, for the diagnosis of OA bilateral hands for a total of 1 visit(s). Please see the following information for a summary of their discharge status. Patient Goals: Decrease Swelling/Stiffness, Use Hand/Wrist/Arm Normally Again, Be More Independent in ADLS Goal:: pt will report no pain greater than 1/10 with use of bilateral hand for ADLs and IADls by d/c. pt will demo understanding to stop activity if hands become painful to prevent further lig.or joint injury by 2nd visit. Goal:: pt will demo understanding of joint protection and initate afshan. by week 3 to limit joint stress and increase pts ind. with ADLS. pt will demo understanding of using ad. eq. to prevent joint stress and increase pts ind. with ADLs by d.c If there are questions or concerns regarding this patient's occupational therapy, please fell free to call me at [phone]. Thank you for the referral of this patient. Sincerely, Jacque Lopez, OTR/L, CHT
== END 2021-06-22 19:00 | disposition home or self-care (01) ==
LOC: OT 08:24
PROVIDERS: PCP Family Medicine; Referring Provider Family Medicine; Visit Provider Family Medicine
DX: M19.049 Primary osteoarthritis, unspecified hand (principal)
CPT/HCPCS: 97166; 97530

== ENCOUNTER 2021-07-28 07:31 | Outpatient (CLI) | payer BC, SELFPAY ==
--- NOTE | 2021-07-28 07:33 | BI_ITS ---
MAMMOGRAPHY - BILATERAL SCREENING REASON FOR EXAM: Female, 45 years old. Routine annual screening examination. PERTINENT HISTORY: Non-contributory. History of lupus. TECHNIQUE: Digital bilateral breast mary (3D mammographic acquisition) in the CC and MLO projections. 2-D mediolateral oblique (MLO) and craniocaudad (CC) views of both breasts were obtained. CAD: Full Field Digital Mammography with Computer Added Detection was performed. COMPARISON: Comparison is made with prior study dated 07/27/2020 and 05/22/2020. FINDINGS: Breast Composition: There are scattered areas of fibroglandular density. There are no dominant masses or suspicious calcifications. Stable benign-appearing bilateral axillary lymph nodes. No other significant abnormalities are identified. There has been no significant change since the prior study. BI/SCRN MAMM (CAD)W/MARY BILAT IMPRESSION: Stable bilateral screening mammogram. Yearly follow-up mammogram recommended. (A) ASSESSMENT CATEGORY: BIRADS Category 2: Benign. A letter regarding these results will be sent to the patient by the facility within 30 days. Approximately 10% of breast cancers are not detected by mammography. A normal mammogram should not delay biopsy of a clinically suspicious abnormality. [id number] Electronically Signed: Barrett Calvert MD at 8:34 EST ,
== END 2021-07-28 23:59 | disposition home or self-care (01) ==
LOC: OPBI 07:32
PROVIDERS: PCP Family Medicine; Visit Provider Obstetrics & Gynecology
DX: Z12.31 Encounter for screening mammogram for malignant neoplasm of breast (principal)
CPT/HCPCS: 77063; 77067